=== PATIENT | male | born 1945 ===

== ENCOUNTER 2019-07-21 12:38 | Outpatient (CLI) | payer MEDICARE ==
[~2019-07-21] VITALS: Ht 167.7 cm; Wt 80.3 kg
[2019-07-21 13:53] VITALS: BP 130/74
[2019-07-22] MEDS ORDERED: NIAC500T24 PO (15:06)
[2019-07-22] MEDS ORDERED: METO50TA15 PO (15:06)
[2019-07-22] MEDS ORDERED: METF-399 PO (15:06)
[2019-07-22] MEDS ORDERED: MULT-1056 PO (15:06)
[2019-07-22] MEDS ORDERED: GABA-488 PO (15:06)
[2019-07-22] MEDS ORDERED: BUDE10.2 IH (15:06)
[2019-07-22] MEDS ORDERED: GLIM4TAB PO (15:06)
[2019-07-22] MEDS ORDERED: ALBU18HF2 INH (15:06)
[2019-07-22] MEDS ORDERED: PRAV20TA3 PO (15:06)
== END 2019-07-21 13:40 | disposition home or self-care (01) ==
LOC: PREOP 12:38
PROVIDERS: ATTEND Otolaryngology Otolaryngology/Facial Plastic Surgery
DX: Z01.818 Encounter for other preprocedural examination (principal)
CPT/HCPCS: 87081

== ENCOUNTER 2019-07-31 07:59 | Day surgery (SDC) | payer MEDICARE ==
[~2019-07-31] VITALS: Ht 167.6 cm; Wt 80.3 kg
[2019-07-31] VITALS (12 sets, daily range): BP systolic 62–138; BP diastolic 54–70
[~2019-07-31 07:59] MED LIST: ALBU18HF2 INH; BUDE10.2 IH; GABA-488 PO; GLIM4TAB PO; METF-399 PO; METO50TA15 PO; MULT-1056 PO; NIAC500T24 PO; PRAV20TA3 PO
[2019-07-31] MEDS ORDERED: RT-ALBUTEROL SULF 2.5 MG/3 ML PRE-MIX VIAL ONE (08:46)
[2019-07-31] MEDS ORDERED: MIDAZOLAM 2 MG/2 ML (VERSED) VIAL IV ONE (09:30)
--- NOTE | 2019-07-31 10:39 | Progress Note-Pre Operative ---
Pre-Operative Progress Note H&P Reviewed The H&P was reviewed, patient examined and no changes noted. Date Seen by Provider: Jul 31, 2019 Time Seen by Provider: 10: Date H&P Reviewed: Jul 31, 2019 Time H&P Reviewed: : Pre-Operative Diagnosis: Nasopharyngeal Mass, Chronic VASILIY DEBORAH JAFFE MD Jul 31, 2019 10:39
[2019-07-31] MEDS ORDERED: MIDAZOLAM 2 MG/2 ML (VERSED) VIAL ONE (10:42)
[2019-07-31] MEDS ORDERED: ONDANSETRON 4 MG/2 ML (SDV) Z0FRAN ONE (10:42)
[2019-07-31] MEDS ORDERED: LIDOCAINE PF 2% 5 ML (XYLOCAINE) VIAL ONE (10:42)
[2019-07-31] MEDS ORDERED: fentaNYL INJECTION 100 MCG/2 ML AMP ONE (10:42)
[2019-07-31] MEDS ORDERED: proPOfol 200 MG/20 ML (DIPRIVAN) VIAL IV ONE (10:42)
[2019-07-31] MEDS ORDERED: SEVOFLURANE (ULTANE) 15 ML INHAL SOLN ONE ×2 (10:45→11:25)
[2019-07-31] MEDS ORDERED: ROCURONIUM 10 MG/ML 5 ML SYRINGE IV ONE (10:45)
[2019-07-31] MEDS ORDERED: LACTATED RINGERS 1,000 ML IV PRN (10:54)
[2019-07-31] MEDS ORDERED: ASPI-586 PO (11:07)
[2019-07-31] MEDS ORDERED: GLYCOPYRROLATE 0.2 MG/ML (ROBINUL) 2 ML VIAL ONE (11:17)
[2019-07-31] MEDS ORDERED: NEOSTIGMINE 3 MG/3 ML VIAL ONE (11:17)
[2019-07-31] MEDS ORDERED: PHENYLEPHRINE 100 MCG/ML 10 ML (ANESTHESIA) SYR ONE (11:19)
--- NOTE | 2019-07-31 11:22 | Progress Note-Post Operative ---
Post-Operative Progess Note Surgeon (s)/Stamps Or Coins Salesperson (s) Surgeon DEBORAH JAFFE MD Stamps Or Coins Salesperson n/a Pre-Operative Diagnosis Nasopharyngeal Mass, Chronic VASILIY Post-Operative Diagnosis same Post-Op Procedure Note Date of Procedure: Jul 31, 2019 Name of Procedure Performed: Removal of Nasopharyngeal Mass, BMT Description & Findings Description and Findings: n/a Anesthesia Type gen Estimated Blood Loss minimal Packing none. Specimen(s) collected/removed nasopharyngeal mass fresh to path to be treted like a lymphoma DEBORAH JAFFE MD Jul 31, 2019 11:22
[2019-07-31] MEDS ORDERED: ACETAMINOPHEN 325 MG TABLET PO PRN (11:30)
[2019-07-31] MEDS ORDERED: HYDROcodone/APAP 5 MG/325 MG (LORTAB) TAB PO PRN (11:30)
[2019-07-31] MEDS ORDERED: MEPERIDINE (DEMEROL) INJ 50 MG/ML IVP ONE (11:45)
[2019-07-31] MEDS ORDERED: ONDANSETRON 4 MG/2 ML (SDV) Z0FRAN IVP PRN (11:45)
[2019-07-31] MEDS ORDERED: morphine INJ 10 MG/ML 1ML (SYR OR VIAL) IVP ONE (11:45)
--- NOTE | 2019-07-31 13:21 | Anesthesia-General Post-Op ---
General Patient Condition Mental Status/LOC: Same as Preop Cardiovascular: Satisfactory Nausea/Vomiting: Absent Respiratory: Satisfactory Pain: Controlled Complications: Absent Post Op Complications Complications None Follow Up Care/Instructions Patient Instructions None needed. Anesthesia/Patient Condition Patient Condition Patient is doing well, no complaints, stable vital signs, no apparent adverse anesthesia problems. No complications reported per nursing. MARCIANO SHEPHERD CRNA Jul 31, 2019 13:21
[2019-07-31] MEDS ORDERED: HYDR-3812 PO (13:40)
[2019-07-31] MEDS ORDERED: GARAMYCIN EACH EAR (13:40)
[2019-07-31] MEDS ORDERED: DEXAMETHASONE 10 MG/ML (DECADRON) 1 ML VIAL ONE (14:29)
== END 2019-07-31 14:30 | disposition home or self-care (01) ==
LOC: SDC 07:59
PROVIDERS: ATTEND Otolaryngology Otolaryngology/Facial Plastic Surgery
DX: H65.23 Chronic serous otitis media, bilateral (principal); C83.11 Mantle cell lymphoma, lymph nodes of head, face, and neck; I10 Essential (primary) hypertension; E11.9 Type 2 diabetes mellitus without complications; E78.5 Hyperlipidemia, unspecified; J18.9 Pneumonia, unspecified organism; Z79.899 Other long term (current) drug therapy; Z87.891 Personal history of nicotine dependence; Z88.0 Allergy status to penicillin; Z90.49 Acquired absence of other specified parts of digestive tract; Z79.84 Long term (current) use of oral hypoglycemic drugs; Z79.82 Long term (current) use of aspirin; Z83.3 Family history of diabetes mellitus
CPT/HCPCS: 82962; 88184; 88185; 88305; 88341; 88342; 88360; 94640

== ENCOUNTER → 2019-08-12 | Outpatient (CLI) | payer MEDICARE ==
[~2019-08-12] MED LIST changes: +ASPI-586 PO; +GARAMYCIN EACH EAR; +HYDR-3812 PO
--- NOTE | 2019-08-12 13:10 | Diagnostic Imaging Report ---
INDICATION: Mantle cell lymphoma. This study is performed for initial staging. TECHNIQUE: Serum blood glucose level at the time of injection is 127 mg/dL. Patient was administered 16.0 mCi of F-18 FDG intravenously in the left hand and PET imaging was performed from the top of the skull to the mid thighs. Noncontrast CT was also performed for attenuation correction and anatomic correlation. COMPARISON: No prior PET or CT study is available for comparison. FINDINGS: There is symmetric activity throughout the brain. There is some low-level activity noted within multiple cervical lymph nodes. The largest yaw mass is in the left lower cervical spine/supraclavicular region with SUV max of approximately 3.2. There is bulky mediastinal lymphadenopathy which encases the right upper, right middle, and right lower lobe bronchi. Adenopathy demonstrates some low-level activity with SUV max of approximately 3. Patient does have a moderate right-sided pleural effusion with areas of atelectasis or infiltrate in the right middle lobe and right lower lobe. Abdominal evaluation demonstrates bulky lymphadenopathy in the retroperitoneum centrally as well as in the mesentery. The adenopathy does also demonstrate some low-level activity with SUV max of approximately 3.1. There is a small amount of free fluid in the pelvis. Very low-level activity within bilateral inguinal lymph nodes is noted. Liver appears to be enlarged. Kidneys contain bilateral low densities suggestive of cysts. There is a probable calculus in the lower pole of the left kidney measuring 10 mm. Aorta is nonaneurysmal but heavily calcified. IMPRESSION: 1. There is some bulky lymphadenopathy identified in the lower cervical spine/supraclavicular region, mediastinum, and right hilum as well as central mesentery and central retroperitoneum. These areas of lymphadenopathy demonstrate low-level FDG avidity. Moderate right pleural effusion with some associated infiltrate or atelectasis in the right middle lobe and right lower lobe is noted. 2. Minimal ascites. 3. Nonobstructing left renal calculus. Dictated by: Dictated on workstation # [id number]
== END ==
LOC: CARD 08:36
PROVIDERS: ATTEND Internal Medicine Hematology & Oncology
DX: Z51.81 Encounter for therapeutic drug level monitoring (principal); C83.10 Mantle cell lymphoma, unspecified site; J90 Pleural effusion, not elsewhere classified; N20.0 Calculus of kidney; R59.0 Localized enlarged lymph nodes
CPT/HCPCS: 93306

== ENCOUNTER 2019-08-20 05:30 | Outpatient (CLI) | payer MEDICARE ==
[~2019-08-20] VITALS: Ht 165 cm; Wt 80.3 kg
[2019-08-21] MEDS ORDERED: ASPI-999 PO (10:00)
[2019-08-21] MEDS ORDERED: LOSA25TA41 PO (10:01)
[2019-08-21] MEDS ORDERED: SUCR1TAB36 PO (10:01)
[2019-08-21] MEDS ORDERED: ALLO300T2 PO (10:01)
[2019-08-21] MEDS ORDERED: PANT40TA2 PO (10:01)
== END 2019-08-20 10:05 | disposition home or self-care (01) ==
LOC: PREOP 05:30
PROVIDERS: ATTEND Surgery
DX: Z01.818 Encounter for other preprocedural examination (principal)

== ENCOUNTER 2019-08-21 09:05 | Day surgery (SDC) | payer MEDICARE ==
[2019-08-21] VITALS (7 sets, daily range): BP systolic 102–117; BP diastolic 59–66
[~2019-08-21] VITALS: Ht 165 cm; Wt 80.3 kg
[~2019-08-21 09:05] MED LIST changes: -GLIM4TAB PO; +GLIM4TAB3 PO
[2019-08-21] MEDS ORDERED: LACTATED RINGERS 1,000 ML IV PRN (09:29)
[2019-08-21] MEDS ORDERED: CLINDAMYCIN 600 MG/50 ML IVPB 50 ML IV ONE (09:30)
[2019-08-21] MEDS ORDERED: 0.9% SODIUM CHLORIDE PF INJ 20 ML VIAL ONE ×2 (09:37→10:22)
[2019-08-21] MEDS ORDERED: BUP/EPI 0.5% 1:200,000 (SENSORCAINE) 30 ML VIAL ONE (09:37)
--- NOTE | 2019-08-21 09:44 | Progress Note-Pre Operative ---
Pre-Operative Progress Note H&P Reviewed The H&P was reviewed, patient examined and no changes noted. Time Seen by Provider: 09:39 Date H&P Reviewed: Aug 21, 2019 Time H&P Reviewed: 09:42 Pre-Operative Diagnosis: Venous insufficiency, Mantle Cell Lymphoma OSEI BARBOSA DO Aug 21, 2019 09:44
[2019-08-21] MEDS ORDERED: KETAMINE/NaCl 50 MG/5 ML SYRINGE (ED ONLY) ONE (09:45)
[2019-08-21] MEDS ORDERED: MIDAZOLAM 2 MG/2 ML (VERSED) VIAL ONE (09:45)
[2019-08-21] MEDS ORDERED: PROPOFOL INJECTION 50 ML IV ONE (09:45)
[2019-08-21] MEDS ORDERED: ASPI-999 PO (10:00)
[2019-08-21] MEDS ORDERED: SUCR1TAB36 PO (10:01)
[2019-08-21] MEDS ORDERED: PANT40TA2 PO (10:01)
[2019-08-21] MEDS ORDERED: ALLO300T2 PO (10:01)
[2019-08-21] MEDS ORDERED: LOSA25TA41 PO (10:01)
[2019-08-21] MEDS ORDERED: HEParin (CENTRAL IV FLUSH) 500 UNIT/5 ML SYR ONE (10:22)
--- NOTE | 2019-08-21 10:35 | Progress Note-Post Operative ---
Post-Operative Progess Note Surgeon (s)/Fx Artist (s) Surgeon OSEI BARBOSA DO Fx Artist: MOLLY Gunn Pre-Operative Diagnosis Venous insufficiency, Mantle Cell Lymphoma Post-Operative Diagnosis same Procedure & Operative Findings Date of Procedure 08/21/19 Procedure Performed/Findings lizandro-cath insertion, Left chest wall, Left Subclavian vein Anesthesia Type IV sedation by PRESCHOOL PRINCIPAL Estimated Blood Loss Estimated blood loss (mL): scant Specimens/Packing Specimens Removed none OSEI BARBOSA DO Aug 21, 2019 10:35
--- NOTE | 2019-08-21 10:37 | Discharge Inst-Surgical ---
Discharge Inst-Surgical Depart Medication/Instructions New, Converted or Re-Newed RX: Other (no rx needed) Patient Instructions Follow up Appt: Make appointment for 1 week. [phone] Instructions: No strenuous activity. May shower in 24 hours, no tub bath or soaking. Use incentive spirometer at home as directed. No Smoking Skin/Wound Care: May remove bandages in am. You need to leave the Dermabond on incision it will fall off on it's own. Symptoms to Report: Appetite Changes, Extremity Discoloration, Numbness/Tingling, Swelling Increased, Bleeding Excessive, Eyesight Changes, Pain Increased, Urine Color Change, Constipation(Persistent), Fever over 101 degree F, Pain/Pressure in chest, Urinating Difficulty, Cough Up/Vomit Blood, Heart Beat Irreg/Pounding, Pain/Pressure in jaw, Cramps in feet or legs, Lightheadedness, Pain/Pressure in shoulder, Diarrhea(Persistent), Memory Changes Suddenly, Questions/Concerns, Weight gain consecutive days, Dizziness/Fainting, Nausea/Vomiting, Shortness of Breath, Weight gain over 2 pounds If questions or concerns contact your physician Or seek help at emergency department. Activity Driving Instructions: No Driving/Refer to Dr. Ch Discharge Diet: No Restrictions Diet After 24 Hours: Clear Liquid if Nauseous If Any Problems/Questions/Issu: Contact Your Physician, Go to Emergency Room Skin/Wound Care Infection Signs and Symptoms: Increased Redness, Foul Odor of Wound, Increased Drainage, Skin Itchy or Has a Rash, Increased Swelling, Temperature Above 101 F Bathing Instructions: Shower Stitches/Papa/Dermabond Dis: OSEI Christie DO Aug 21, 2019 10:37
[2019-08-21] MEDS ORDERED: morphine INJ 10 MG/ML 1ML (SYR OR VIAL) IVP ONE (10:45)
[2019-08-21] MEDS ORDERED: MEPERIDINE (DEMEROL) INJ 50 MG/ML IVP ONE (10:45)
[2019-08-21] MEDS ORDERED: ACETAMINOPHEN 500 MG TAB (TYLENOL) ONE (11:38)
[2019-08-21] MEDS ORDERED: ACETAMINOPHEN 500 MG TAB (TYLENOL) PO ONE (11:45)
--- NOTE | 2019-08-21 12:04 | Anesthesia-General Post-Op ---
MAC Patient Condition Mental Status/LOC: Same as Preop Cardiovascular: Satisfactory Nausea/Vomiting: Absent Respiratory: Satisfactory Pain: Controlled Complications: Absent Post Op Complications Complications None Follow Up Care/Instructions Patient Instructions None needed. Anesthesiology Discharge Order Discharge Order Patient is doing well, no complaints, stable vital signs, no apparent adverse anesthesia problems. No complications reported per nursing. MARCIANO SHEPHERD CRNA Aug 21, 2019 12:04
--- NOTE | 2019-08-21 12:05 | NUR ---
PATIENT O2 SAT RANGING FROM 88-90% ON ROOM AIR POST OP. PREOP O2 SAT WAS 88-90% RA. FAMILY STATES THEY HAVE O2 AND BREATHING TREATMENTS AT HOME FOR PATIENT, ALBUTEROL INHALER WITH PATIENT NOW. PATIENT STATES HE WANTS TO GO HOME AND WILL TAKE A BREATHING TREATMENT ONCE HE GETS HOME. FAMILY IS OKAY WITH PATIENT DISCHARGING. FAMILY ALSO STATES THEY HAVE PULSE OX AT HOME TO MONITOR PATIENT. THIS RN INSTRUCTED PATIENT ON BREATHING EXERCISES, FAMILY STATES THEY HAVE AN INCENTIVE SPIROMETER AT HOME AND WOULD NOT LIKE A NEW ONE. THIS RN CALLED DR. BARBOSA TO UPDATE HIM ON PATIENT STATUS AND REQUEST TO GO HOME, DR. BARBOSA STATED IT WAS OKAY TO DISCHARGE PATIENT.
--- NOTE | 2019-08-21 13:41 | OPERATIVE REPORT ---
DATE OF SERVICE: 08/21/2019 PREOPERATIVE DIAGNOSES: 1. Mantle cell lymphoma. 2. Venous insufficiency. POSTOPERATIVE DIAGNOSES: 1. Mantle cell lymphoma. 2. Venous insufficiency. PROCEDURE: Port-A-Cath insertion left anterior chest wall, left subclavian vein. SURGEON: Adriel Cornelius DO TELECOM COORDINATOR: Wen Medina MS3 SPECIMENS: None. BLOOD LOSS: Scant. FLUIDS: Per anesthesia. POSTOPERATIVE CONDITION: Stable. INDICATION FOR PROCEDURE: The patient is a 73-year-old male, who unfortunately was recently diagnosed with mantle cell lymphoma, has some venous insufficiency, needs a Port-A-Cath placed. FINDINGS: The patient had a Port-A-Cath placed in left anterior chest wall and left subclavian vein. PROCEDURE NOTE: After informed consent was obtained, the patient was brought to the operating room, placed on the operating table in the supine position. He was sterilely prepped and draped in normal fashion. Local lidocaine was used to infiltrate the skin towards the left clavicle as well as in the left anterior chest wall. The patient was then placed slightly Trendelenburg. An 18-gauge fine needle advanced under negative inspiration, cannulated the subclavian vein on a first attempt. Good flash of blood, removed the syringe, placed a guidewire. Using Seldinger technique, it went in easily and then removed the needle. I used a fluoroscopy and saw that the guidewire was in good position in the superior vena cava. At this point, then made a stab incision along the guidewire with #11 blade and then made an incision in the left anterior chest wall with #11 blade, carried down through the skin into subcutaneous tissue, then deepened down through subcutaneous tissue with Bovie electrocautery down to the pectoralis major fascia and then created a pocket bluntly with my finger. Then over the guidewire, placed a dilator using Seldinger technique. It went in easily and then checked with fluoroscopy, it was in good position. I tunneled catheter from the stab incision into the pocket using tunneling device and removed the inner portion of the dilator sheath and the guidewire. I then placed the catheter down the dilator sheath using Seldinger technique, it went in easily, checked with fluoroscopy, it was in good position. At this point, then removed the dilator sheath and then attached the port to the catheter and then placed a locking mechanism on. Placed this into the pocket and then accessed it with a Hughes needle, good flash of blood and then flushed easily with saline and then aspirated and flushed with 2 mL of heparin, sutured in place with 3-0 Prolene suture and then closed the subcutaneous tissue with 3-0 Vicryl interrupted suture, then closed the skin with 4-0 undyed Monocryl 3 interrupted subcuticular stitches. Area was cleaned and dried. Dermabond was placed as well as a Tegaderm. The patient tolerated the procedure. Sponge, instrument and needle count were correct at the end of the case. Job ID: [id number] DocumentID: [id number] Dictated Date: 08/21/2019 10:33:51 Verification Lead Date: 08/21/2019 13:40:41 Dictated By: ADRIEL CORNELIUS DO
--- NOTE | 2019-08-21 17:31 | Diagnostic Imaging Report ---
INDICATION: Port-A-Cath placement. EXAMINATION: Intraoperative fluoroscopy was used during Port-A-Cath placement in surgery. FINDINGS: Port-A-Cath seen over the left chest with catheter in the left subclavian vein and catheter tip overlying the SVC. 3 seconds of fluoroscopy time was utilized in surgery. IMPRESSION: Intraoperative fluoroscopy used during Port-A-Cath placement. Dictated by: Dictated on workstation # [id number]
--- OUTSIDE RECORDS SUMMARY | 2019-09-13 12:40 | XMS REPORT | Continuity of Care Document ---
Author Organization Unknown POS Address Unknown SP Phone Unavailable SP Allergies Active Description Code Type Severity POS Reaction Onset Reported/Identified POS to Patient Clinical Status POS Yes Penicillins [id number] Drug Aller gy SP Anaphylaxis 07/21/2019 SP Yes Penicillins [id number] Drug Aller gy SP Anaphylaxis 08/20/2019 SP Medications There is no data. Problems Date Dx Coded Attending Type Code POS Diagnosed By POS 07/21/2019 DEBORAH JAFFE MD Ot Z01.818 SP ENCOUNTER FOR OTHER PREPROCEDURAL EXAMIN SP 07/23/2019 DEBORAH JAFFE MD, Ot Z01.818 SP ENCOUNTER FOR OTHER PREPROCEDURAL EXAMIN SP 07/31/2019 DEBORAH JAFFE MD Ot C83.11 SP MANTLE CELL LYMPHOMA, LYMPH NODES OF HEA SP 07/31/2019 DEBORAH JAFFE MD Ot E11 .9 SP 2 DIABETES MELLITUS WITHOUT COMPLIC SP 07/31/2019 DEBORAH JAFFE MD Ot E78 .5 SP UNSPECIFIED SP 07/31/2019 DEBORAH JAFFE MD Ot H65.23 SP CHRONIC SEROUS OTITIS MEDIA, BILATERAL SP 07/31/2019 DEBORAH JAFFE MD Ot I10 SP (PRIMARY) HYPERTENSION SP 07/31/2019 DEBORAH JAFFE MD Ot J18 .9 SP UNSPECIFIED ORGANISM SP 07/31/2019 DEBORAH JAFFE MD Ot Z79.82 SP CARE HOME (CURRENT) USE OF ASPIRIN SP 07/31/2019 EDBORAH JAFFE MD Ot Z79.84 SP CARE HOME (CURRENT) USE OF ORAL HYPOGLYC SP 07/31/2019 DEBORAH JAFFE MD Ot Z79.899 SP OTHER WINDOWS SERVER ARCHITECT (CURRENT) DRUG THERAPY SP 07/31/2019 DEBORAH JAFFE MD Ot Z83 .3 SP HISTORY OF DIABETES MELLITUS SP 07/31/2019 DEBORAH JAFFE MD Ot Z87.891 SP PERSONAL HISTORY OF NICOTINE DEPENDENCE SP 07/31/2019 DEBORAH JAFFE MD Ot Z88 .0 SP STATUS TO PENICILLIN SP 07/31/2019 DEBORAH JAFFE MD Ot Z90.49 SP ACQUIRED ABSENCE OF OTHER SPECIFIED PART SP 08/11/2019 DEBORAH JAFFE MD Ot C83.11 SP MANTLE CELL LYMPHOMA, LYMPH NODES OF HEA SP 08/11/2019 DEBORAH JAFFE MD Ot E11 .9 SP 2 DIABETES MELLITUS WITHOUT COMPLIC SP 08/11/2019 DEBORAH JAFFE MD Ot E78 .5 SP UNSPECIFIED SP 08/11/2019 DEBORAH JAFFE MD Ot H65.23 SP CHRONIC SEROUS OTITIS MEDIA, BILATERAL SP 08/11/2019 DEBORAH JAFFE MD Ot I10 SP (PRIMARY) HYPERTENSION SP 08/11/2019 DEBORAH JAFFE MD Ot J18 .9 SP UNSPECIFIED ORGANISM SP 08/11/2019 DEBORAH JAFFE MD Ot Z79.82 SP WINDOWS SERVER ARCHITECT (CURRENT) USE OF ASPIRIN SP 08/11/2019 DEBORAH JAFFE MD Ot Z79.84 SP WINDOWS SERVER ARCHITECT (CURRENT) USE OF ORAL HYPOGLYC SP 08/11/2019 DEBORAH JAFFE MD Ot Z79.899 SP OTHER WINDOWS SERVER ARCHITECT (CURRENT) DRUG THERAPY SP 08/11/2019 DEBORAH JAFFE MD Ot Z83 .3 SP HISTORY OF DIABETES MELLITUS SP 08/11/2019 DEBORAH JAFFE MD Ot Z87.891 SP PERSONAL HISTORY OF NICOTINE DEPENDENCE SP 08/11/2019 DEBORAH JAFFE MD Ot Z88 .0 SP STATUS TO PENICILLIN SP 08/11/2019 DEBORAH JAFFE MD Ot Z90.49 SP ACQUIRED ABSENCE OF OTHER SPECIFIED PART SP 08/11/2019 HALLIE TODD Ot C83.11 SP CELL LYMPHOMA, LYMPH NODES OF HEA SP 08/15/2019 HALLIE TODD Ot C83.10 SP CELL LYMPHOMA, UNSPECIFIED SITE SP 08/15/2019 HALLIE TODD Ot J90 SP EFFUSION, NOT ELSEWHERE CLASSIFI SP 08/15/2019 HALLIE TODD Ot N20.0 SP OF KIDNEY SP 08/15/2019 HALLIE TODD Ot R59.0 SP ENLARGED LYMPH NODES SP 08/15/2019 HALLIE TODD Ot Z51.81 SP FOR THERAPEUTIC DRUG LEVEL MON SP 08/19/2019 HALLIE TODD Ot C83.11 SP CELL LYMPHOMA, LYMPH NODES OF HEA SP 08/19/2019 HALLIE TODD Ot C83.10 SP CELL LYMPHOMA, UNSPECIFIED SITE SP 08/19/2019 PEYTON, BOBAN N Ot J90 SP EFFUSION, NOT ELSEWHERE CLASSIFI SP 08/19/2019 PEYTON HALLIE N Ot N20.0 SP OF KIDNEY SP 08/19/2019 PEYTON, BOBLOUIE N Ot R59.0 SP ENLARGED LYMPH NODES SP 08/19/2019 PEYTON BOBLOUIE N Ot Z51.81 SP FOR THERAPEUTIC DRUG LEVEL MON SP 08/20/2019 CHRISTIANO BARBOSA DOIC B Ot Z01.8 18 SP FOR OTHER PREPROCEDURAL EXAMIN SP 08/21/2019 PEYTONHALLIE N Ot C83.11 SP CELL LYMPHOMA, LYMPH NODES OF HEA SP 08/21/2019 PEYTONHALLIE N Ot C83.10 SP CELL LYMPHOMA, UNSPECIFIED SITE SP 08/21/2019 PEYTONHALLIE MITCHELL N Ot J90 SP EFFUSION, NOT ELSEWHERE CLASSIFI SP 08/21/2019 PEYTON HALLIE N Ot N20.0 SP OF KIDNEY SP 08/21/2019 PEYTONHALLIE N Ot R59.0 SP ENLARGED LYMPH NODES SP 08/21/2019 HALLIE TODD N Ot Z51.81 SP FOR THERAPEUTIC DRUG LEVEL MON SP 08/21/2019 PEYTON RONNIELOUIE N Ot C83.11 SP CELL LYMPHOMA, LYMPH NODES OF HEA SP 08/21/2019 OSEI BARBOSA DO Ot E11.4 0 SP 2 DIABETES MELLITUS WITH DIABETIC N SP 08/21/2019 CHRISTIANO BARBOSA DOIC B Ot E78.5 SP UNSPECIFIED SP 08/21/2019 CHRISTIANO BARBOSA DOIC B Ot F41.8 SP SPECIFIED ANXIETY DISORDERS SP 08/21/2019 OSEI BARBOSA DO B Ot I10 SP (PRIMARY) HYPERTENSION SP 08/21/2019 CHRISTIANO BARBOSA DOIC B Ot I87.2 SP INSUFFICIENCY (CHRONIC) (PERIPHER SP 08/21/2019 CHRISTIANO BARBOSA DOIC B Ot J44.9 SP OBSTRUCTIVE PULMONARY DISEASE, U SP 08/21/2019 OSEI BARBOSA DO B Ot Z79.8 2 SP TERM (CURRENT) USE OF ASPIRIN SP 08/21/2019 CHRISTIANO BARBOSA DOIC B Ot Z79.8 4 SP TERM (CURRENT) USE OF ORAL HYPOGLYC SP 08/21/2019 OSEI BARBOSA DO B Ot Z79.8 99 SP WINDOWS SERVER ARCHITECT (CURRENT) DRUG THERAPY SP 08/21/2019 CHRISTIANO BARBOSA DOIC B Ot Z80.3 SP HISTORY OF MALIGNANT NEOPLASM OF SP 08/21/2019 ANA MARÍAMINDA CHRISTIANO ALMANZARIC B Ot Z82.4 9 SP HX OF ISCHEM HEART DIS AND OTH DI SP 08/21/2019 ANA MARÍAMINDA OSEI ALMANZAR B Ot Z83.3 SP HISTORY OF DIABETES MELLITUS SP 08/21/2019 CHELSEY OSEI ALMANZAR B Ot Z88.0 SP STATUS TO PENICILLIN SP 08/21/2019 ANA MARÍAMINDA CHRISTIANO ALMANZARIC B Ot Z90.4 9 SP ABSENCE OF OTHER SPECIFIED PART SP 08/26/2019 ANA MARÍAMINDA CHRISTIANO ALMANZARIC B Ot E11.4 0 SP 2 DIABETES MELLITUS WITH DIABETIC N SP 08/26/2019 CHRISTIANO BARBOSA DOIC B Ot E78.5 SP UNSPECIFIED SP 08/26/2019 ANA MARÍAMINDA OSEI ALMANZAR B Ot F41.8 SP SPECIFIED ANXIETY DISORDERS SP 08/26/2019 ANA MARÍAMINDA CHRISTIANO ALMANZARIC B Ot I10 SP (PRIMARY) HYPERTENSION SP 08/26/2019 ANA MARÍAMINDA OSEI ALMANZAR B Ot I87.2 SP INSUFFICIENCY (CHRONIC) (PERIPHER SP 08/26/2019 ANA MARÍAMINDA OSEI ALMANZAR B Ot J44.9 SP OBSTRUCTIVE PULMONARY DISEASE, U SP 08/26/2019 ANA MARÍAMINDA OSEI ALMANZAR B Ot Z79.8 2 SP TERM (CURRENT) USE OF ASPIRIN SP 08/26/2019 OSEI BARBOSA DO B Ot Z79.8 4 SP TERM (CURRENT) USE OF ORAL HYPOGLYC SP 08/26/2019 ANA MARÍAMINDA OSEI ALMANZAR B Ot Z79.8 99 SP WINDOWS SERVER ARCHITECT (CURRENT) DRUG THERAPY SP 08/26/2019 ANA MARÍAMINDA OSEI ALMANZAR B Ot Z80.3 SP HISTORY OF MALIGNANT NEOPLASM OF SP 08/26/2019 ANA MARÍAMINDA CHRISTIANO ALMANZARIC B Ot Z82.4 9 SP HX OF ISCHEM HEART DIS AND OTH DI SP 08/26/2019 ANA MARÍAMINDA OSEI ALMANZAR B Ot Z83.3 SP HISTORY OF DIABETES MELLITUS SP 08/26/2019 OSEI BARBOSA DO B Ot Z88.0 SP STATUS TO PENICILLIN SP 08/26/2019 CHRISTIANO BARBOSA DOIC B Ot Z90.4 9 SP ABSENCE OF OTHER SPECIFIED PART SP 08/28/2019 OSEI BARBOSA DO B Ot E11.4 0 SP 2 DIABETES MELLITUS WITH DIABETIC N SP 08/28/2019 OSEI BARBOSA DO B Ot E78.5 SP UNSPECIFIED SP 08/28/2019 CHELSEY ALMANZAR OSEI B Ot F41.8 SP SPECIFIED ANXIETY DISORDERS SP 08/28/2019 CHELSEY ALMANZAR OSEI B Ot I10 SP (PRIMARY) HYPERTENSION SP 08/28/2019 CHELSEY ALMANZAR OSEI B Ot I87.2 SP INSUFFICIENCY (CHRONIC) (PERIPHER SP 08/28/2019 CHELSEY ALMANZAR OSEI B Ot J44.9 SP OBSTRUCTIVE PULMONARY DISEASE, U SP 08/28/2019 CHELSEY ALMANZARCHRISTIANOIC B Ot Z79.8 2 SP TERM (CURRENT) USE OF ASPIRIN SP 08/28/2019 CHELSEY ALMANZAR OSEI B Ot Z79.8 4 SP TERM (CURRENT) USE OF ORAL HYPOGLYC SP 08/28/2019 CHELSEY ALMANZAR OSEI B Ot Z79.8 99 SP WINDOWS SERVER ARCHITECT (CURRENT) DRUG THERAPY SP 08/28/2019 CHELSEY ALMANZAR OSEI B Ot Z80.3 SP HISTORY OF MALIGNANT NEOPLASM OF SP 08/28/2019 CHELSEY ALMANZAR OSEI B Ot Z82.4 9 SP HX OF ISCHEM HEART DIS AND OTH DI SP 08/28/2019 CHELSEY ALMANZAR OSEI B Ot Z83.3 SP HISTORY OF DIABETES MELLITUS SP 08/28/2019 CHELSEY ALMANZAR OSEI B Ot Z88.0 SP STATUS TO PENICILLIN SP 08/28/2019 CHELSEY ALMANZAR OSEI B Ot Z90.4 9 SP ABSENCE OF OTHER SPECIFIED PART SP 08/29/2019 HALLIE TODD Jose Armando Ot C83.11 SP CELL LYMPHOMA, LYMPH NODES OF HEA SP Procedures There is no data. Results Test Result Range POS HP4+HBsAb - 07/20/19 07:25 POS Hep B Surface Ab, Qual Non Reactive SP HBsAg Screen Negative Negative SP Hep A Ab, IgM Negative Negative SP Hep B Core Ab, IgM Negative Negative SP HCV Ab <0.1 s/co ratio 0.0-0.9 SP Comment: - 07/20/19 07:25 POS Comment: Comment SP Methicillin resistant Staphylococcus aur eus (MRSA) screening culture - 07/21/19 POS Methicillin resistant Staphylococcus aureus (MRSA) scr eening culture POS NRG SP Capillary blood glucose measurement by g lucometer (mass/volume) - 07/31/19 08:57 POS Capillary blood glucose measurement by glucometer (mas s/volume) 90 POS 70-110 SP Capillary blood glucose measurement by g lucometer (mass/volume) - 07/31/19 11:42 POS Capillary blood glucose measurement by glucometer (mas s/volume) 105 POS 70-110 SP Capillary blood glucose measurement by g lucometer (mass/volume) - 08/21/19 09:28 POS Capillary blood glucose measurement by glucometer (mas s/volume) 76 POS 70-110 SP Methicillin resistant Staphylococcus aur eus (MRSA) screening culture - 08/21/19 POS Methicillin resistant Staphylococcus aureus (MRSA) scr eening culture POS NRG SP Capillary blood glucose measurement by g lucometer (mass/volume) - 08/21/19 10:53 POS Capillary blood glucose measurement by glucometer (mas s/volume) 73 POS 70-110 SP Encounters ACCT No. Visit Date/Time Discharge Status POS Pt. Type Provider Facility Loc./Un it POS Complaint POS [id number] 09/04/2019 12:13:08 09/04/2019 23:59: 59 CLS SP Outpatient LesleyJuan owen [place] SP [id number] 09/04/2019 10:31:41 09/04/2019 23:59: 59 CLS SP Outpatient Ora Sales SP SP [id number] 07/31/2019 16:28:34 07/31/2019 23:59: 59 CLS SP Outpatient Nay Ayala SP SP [id number] 07/03/2019 15:53:30 07/03/2019 23:59: 59 CLS SP Outpatient Juan Sutton [place] SP [id number] 06/19/2019 10:50:03 06/19/2019 23:59: 59 CLS SP Outpatient LesleyJuan owen [place] SP [id number] 05/20/2019 15:59:52 05/20/2019 23:59: 59 CLS SP Outpatient LesleyJuan owen [place] SP [id number] 05/05/2019 10:33:23 05/05/2019 23:59: 59 CLS SP Outpatient LesleyJuan owen [place] SP [id number] 11/26/2018 15:20:19 11/26/2018 23:59: 59 CLS SP Outpatient Juan Sutton [place] SP [id number] 07/30/2018 09:30:44 07/30/2018 23:59: 59 CLS SP Outpatient LesleyJuan [place] SP [id number] 11/22/2017 16:31:23 11/22/2017 23:59: 59 CLS SP Outpatient LesleyJuan SP SP [id number] 05/07/2017 10:33:26 05/07/2017 23:59: 59 CLS SP Outpatient LesleyJuan SP SP [id number] 10/24/2016 16:19:51 10/24/2016 23:59: 59 CLS SP Outpatient LesleyJuan SP SP [id number] 07/31/2016 11:35:24 07/31/2016 23:59: 59 CLS SP Outpatient LesleyJuan SP SP [id number] 11/01/2015 14:32:48 11/01/2015 23:59: 59 CLS SP Outpatient Shiela Garber SP SP [id number] 09/21/2015 11:32:21 09/21/2015 23:59: 59 CLS SP Outpatient LesleyJuan SP SP [id number] 02/03/2015 10:10:00 02/03/2015 23:59: 59 CLS SP Outpatient LesleyJuan SP SP [id number] 03/27/2014 09:30:20 03/27/2014 23:59: 59 CLS SP Outpatient LesleyJuan SP SP [id number] 03/23/2014 12:02:15 03/23/2014 23:59: 59 CLS SP Outpatient LesleyJuan SP SP [id number] 01/30/2014 08:57:41 01/30/2014 23:59: 59 CLS SP Outpatient LesleyJuan SP [id number] 07/22/2019 09:07:00 SP Registration SP [id number] 09/08/2019 13:37:00 23:59:59 SP CLS Outpatient HALLIE TODD [facility] ONC SP [id number] 08/21/2019 09:05:00 12:05:00 SP DIS Outpatient OSEI BARBOSA DO [facility] MANTLE CELL CANCER SP [id number] 08/20/2019 05:30:00 23:59:59 SP CLS Outpatient [place] OSEI ALMANZAR [facility] PREOP MANTLE CELL CANCER SP [id number] 08/12/2019 08:36:00 23:59:59 SP CLS Outpatient HALLIE TODD [facility] CARD LYMPHOMA, MANTLE CELL SP [id number] 07/31/2019 07:59:00 14:30:00 SP DIS Outpatient LD BYRNE[facility] NASOPHARYNGEAL M[facility], OTITIS MEDIA SP [id number] 07/21/2019 12:38:00 13:40:00 SP DIS Outpatient LD BYRNE, DEBORAH White [facility] PREOP NASOPHARYNGEAL MASS SP
[2019-09-24] MEDS ORDERED: MORP-68 PO (16:32)
== END 2019-08-21 12:05 | disposition home or self-care (01) ==
LOC: SDC 09:05
PROVIDERS: ATTEND Surgery
DX: I87.2 Venous insufficiency (chronic) (peripheral) (principal); I10 Essential (primary) hypertension; E78.5 Hyperlipidemia, unspecified; J44.9 Chronic obstructive pulmonary disease, unspecified; E11.40 Type 2 diabetes mellitus with diabetic neuropathy, unspecified; F41.8 Other specified anxiety disorders; Z88.0 Allergy status to penicillin; Z79.84 Long term (current) use of oral hypoglycemic drugs; Z79.899 Other long term (current) drug therapy; Z90.49 Acquired absence of other specified parts of digestive tract; Z79.82 Long term (current) use of aspirin; Z80.3 Family history of malignant neoplasm of breast; Z82.49 Family history of ischemic heart disease and other diseases of the circulatory system; Z83.3 Family history of diabetes mellitus
CPT/HCPCS: 82962; 87081

== ENCOUNTER 2019-09-24 09:14 | Outpatient (RCR) | payer MEDICARE ==
[2019-08-12 08:33] LABS: BASOPHILS # (AUTO) 0.1 10^3/uL (0.0-0.1); BASOPHILS % (AUTO) 1 % (0-10); EOSINOPHILS # (AUTO) 0.2 10^3/uL (0.0-0.3); EOSINOPHILS % (AUTO) 1 % (0-10); HEMATOCRIT 49 % (40-54); HEMOGLOBIN 16.7 G/DL (13.3-17.7); LYMPHOCYTES # (AUTO) 7.2 X 10^3 (1.0-4.0); LYMPHOCYTES % (AUTO) 47 % (12-44); MEAN CORPUSCULAR HEMOGLOBIN 33 PG (25-34); MEAN CORPUSCULAR HGB CONC 34 G/DL (32-36); MEAN CORPUSCULAR VOLUME 96 FL (80-99); MONOCYTES % (AUTO) 7 % (0-12); NEUTROPHILS # (AUTO) 6.7 X 10^3 (1.8-7.8); NEUTROPHILS % (AUTO) 44 % (42-75); PLATELET COUNT 129 10^3/uL (130-400); WHITE BLOOD COUNT 15.3 10^3/uL (4.3-11.0)
[2019-08-12 08:58] LABS: ALANINE AMINOTRANSFERASE 43 U/L (0-55); ALKALINE PHOSPHATASE 265 U/L (40-136); BILIRUBIN,TOTAL 0.8 MG/DL (0.1-1.0); BUN/CREATININE RATIO 16; CALCIUM 8.2 MG/DL (8.5-10.1); CARBON DIOXIDE 20 MMOL/L (21-32); CHLORIDE 108 MMOL/L (98-107); CREATININE SERUM 0.92 MG/DL (0.60-1.30); GFR ESTIMATED > 60; GLUCOSE 140 MG/DL (70-105); POTASSIUM 4.4 MMOL/L (3.6-5.0); SODIUM 139 MMOL/L (135-145); TOTAL PROTEIN 5.1 GM/DL (6.4-8.2)
[2019-08-12 22:46] LABS: HEPATITIS C ANTIBODY C Non-Reactive (Non-Reactive)
[2019-08-27 12:03] LABS: BASOPHILS # (AUTO) 0.6 10^3/uL (0.0-0.1); BASOPHILS % (AUTO) 1 % (0-10); EOSINOPHILS % (AUTO) 0 % (0-10); HEMATOCRIT 50 % (40-54); LYMPHOCYTES # (AUTO) 26.2 X 10^3 (1.0-4.0); LYMPHOCYTES % (AUTO) 66 % (12-44); MEAN CORPUSCULAR HEMOGLOBIN 34 PG (25-34); MEAN CORPUSCULAR HGB CONC 34 G/DL (32-36); MEAN CORPUSCULAR VOLUME 99 FL (80-99); MEAN PLATELET VOLUME 12.8 FL (7.4-10.4); MONOCYTES # (AUTO) 1.7 X 10^3 (0.0-1.0); MONOCYTES % (AUTO) 4 % (0-12); NEUTROPHILS # (AUTO) 11.2 X 10^3 (1.8-7.8); NEUTROPHILS % (AUTO) 28 % (42-75); PLATELET COUNT 93 10^3/uL (130-400); RED CELL DISTRIBUTION WIDTH 17.1 % (10.0-14.5)
[2019-08-27 12:04] LABS: WHITE BLOOD COUNT 39.7 10^3/uL (4.3-11.0)
[2019-08-27 12:35] LABS: ALANINE AMINOTRANSFERASE 27 U/L (0-55); ALBUMIN 2.9 GM/DL (3.2-4.5); ALKALINE PHOSPHATASE 368 U/L (40-136); BILIRUBIN,TOTAL 1.2 MG/DL (0.1-1.0); BUN/CREATININE RATIO 17; CALCIUM 7.6 MG/DL (8.5-10.1); CARBON DIOXIDE 25 MMOL/L (21-32); CHLORIDE 101 MMOL/L (98-107); CREATININE SERUM 1.03 MG/DL (0.60-1.30); GFR ESTIMATED > 60; GLUCOSE 194 MG/DL (70-105); POTASSIUM 4.9 MMOL/L (3.6-5.0); SODIUM 134 MMOL/L (135-145); TOTAL PROTEIN 5.1 GM/DL (6.4-8.2)
[2019-08-27 13:15] LABS: URIC ACID 6.8 MG/DL (2.6-7.2)
[2019-08-28 13:56] LABS: BUN/CREATININE RATIO 25; CALCIUM 7.6 MG/DL (8.5-10.1); CARBON DIOXIDE 23 MMOL/L (21-32); CHLORIDE 102 MMOL/L (98-107); CREATININE SERUM 1.14 MG/DL (0.60-1.30); GFR ESTIMATED > 60; GLUCOSE 142 MG/DL (70-105); MAGNESIUM 1.6 MG/DL (1.6-2.4); PHOSPHORUS 3.7 MG/DL (2.3-4.7); POTASSIUM 5.3 MMOL/L (3.6-5.0); SODIUM 136 MMOL/L (135-145); URIC ACID 8.1 MG/DL (2.6-7.2)
[2019-09-01 12:07] LABS: BASOPHILS # (AUTO) 0.1 10^3/uL (0.0-0.1); BASOPHILS % (AUTO) 1 % (0-10); EOSINOPHILS % (AUTO) 0 % (0-10); HEMATOCRIT 50 % (40-54); HEMOGLOBIN 16.7 G/DL (13.3-17.7); LYMPHOCYTES # (AUTO) 5.8 X 10^3 (1.0-4.0); LYMPHOCYTES % (AUTO) 53 % (12-44); MEAN CORPUSCULAR HEMOGLOBIN 33 PG (25-34); MEAN CORPUSCULAR HGB CONC 33 G/DL (32-36); MEAN CORPUSCULAR VOLUME 98 FL (80-99); MEAN PLATELET VOLUME 12.5 FL (7.4-10.4); MONOCYTES # (AUTO) 0.9 X 10^3 (0.0-1.0); MONOCYTES % (AUTO) 8 % (0-12); NEUTROPHILS # (AUTO) 4.2 X 10^3 (1.8-7.8); NEUTROPHILS % (AUTO) 38 % (42-75); PLATELET COUNT 98 10^3/uL (130-400); RED CELL DISTRIBUTION WIDTH 16.6 % (10.0-14.5)
[2019-09-01 12:29] LABS: ALANINE AMINOTRANSFERASE 25 U/L (0-55); ALBUMIN 2.8 GM/DL (3.2-4.5); ALKALINE PHOSPHATASE 270 U/L (40-136); BILIRUBIN,TOTAL 1.5 MG/DL (0.1-1.0); BUN/CREATININE RATIO 22; CALCIUM 7.7 MG/DL (8.5-10.1); CARBON DIOXIDE 23 MMOL/L (21-32); CHLORIDE 99 MMOL/L (98-107); CREATININE SERUM 0.82 MG/DL (0.60-1.30); GFR ESTIMATED > 60; GLUCOSE 150 MG/DL (70-105); POTASSIUM 4.8 MMOL/L (3.6-5.0); SODIUM 133 MMOL/L (135-145); TOTAL PROTEIN 4.9 GM/DL (6.4-8.2); URIC ACID 3.6 MG/DL (2.6-7.2)
[2019-09-08 13:59] LABS: BASOPHILS # (AUTO) 0.1 10^3/uL (0.0-0.1); BASOPHILS % (AUTO) 2 % (0-10); EOSINOPHILS % (AUTO) 0 % (0-10); HEMATOCRIT 49 % (40-54); HEMOGLOBIN 16.7 G/DL (13.3-17.7); LYMPHOCYTES # (AUTO) 1.4 X 10^3 (1.0-4.0); LYMPHOCYTES % (AUTO) 23 % (12-44); MEAN CORPUSCULAR HEMOGLOBIN 33 PG (25-34); MEAN CORPUSCULAR HGB CONC 34 G/DL (32-36); MEAN CORPUSCULAR VOLUME 97 FL (80-99); MEAN PLATELET VOLUME 12.9 FL (7.4-10.4); MONOCYTES # (AUTO) 0.7 X 10^3 (0.0-1.0); MONOCYTES % (AUTO) 11 % (0-12); NEUTROPHILS # (AUTO) 3.9 X 10^3 (1.8-7.8); NEUTROPHILS % (AUTO) 64 % (42-75); PLATELET COUNT 94 10^3/uL (130-400); RED CELL DISTRIBUTION WIDTH 15.8 % (10.0-14.5); WHITE BLOOD COUNT 6.1 10^3/uL (4.3-11.0)
[2019-09-08 14:18] LABS: BUN/CREATININE RATIO 19; CARBON DIOXIDE 25 MMOL/L (21-32); CHLORIDE 101 MMOL/L (98-107); CREATININE SERUM 0.79 MG/DL (0.60-1.30); POTASSIUM 4.6 MMOL/L (3.6-5.0); SODIUM 135 MMOL/L (135-145)
[2019-09-08 14:19] LABS: CALCIUM 7.8 MG/DL (8.5-10.1); GFR ESTIMATED > 60; GLUCOSE 190 MG/DL (70-105); URIC ACID 5.9 MG/DL (2.6-7.2)
[~2019-09-24] VITALS: Ht 166.4 cm; Wt 83.0 kg
[~2019-09-24 09:14] MED LIST changes: +ACETAMINOPHEN 325 MG TAB (TYLENOL) CANCER CTR PO PRN; +ALLO300T2 PO; +ASPI-999 PO; +BENDAMUSTINE HCL IV SCH; +GLIM4TAB PO; -GLIM4TAB3 PO; +LOSA25TA41 PO; +NS IV 1000 ML (CANCER CTR) IV SCH; +NS IV ONE; +NS IV SCH; +ONDANSETRON MDV (CANCER CENTER 16 MG, DEXAMETHASONE INJECTION 10 MG in NS (IVPB) CANCER... IV SCH; +PALONOSETRON HCL 0.25 MG, DEXAMETHASONE INJECTION 10 MG in NS (IVPB) CANCER CENTER 50 ML IV SCH; +PANT40TA2 PO; +RASBURICASE IV ONE; +RITUXIMAB FOR IV SCH; +RITUXIMAB IV SCH; +SUCR1TAB36 PO; +[UNRECOGNIZED DRUG - OTHER] IV SCH; +diphenhydrAMINE 50 MG/ML INJ (CANCER CENTER) IV PRN; +morphine INJ 4 MG/ML 1 ML (CANCER CTR) ONE
[2019-09-24 09:44] LABS: BASOPHILS # (AUTO) 0.1 10^3/uL (0.0-0.1); BASOPHILS % (AUTO) 2 % (0-10); EOSINOPHILS # (AUTO) 0.1 10^3/uL (0.0-0.3); EOSINOPHILS % (AUTO) 1 % (0-10); HEMATOCRIT 51 % (40-54); HEMOGLOBIN 16.7 G/DL (13.3-17.7); LYMPHOCYTES # (AUTO) 3.5 X 10^3 (1.0-4.0); LYMPHOCYTES % (AUTO) 40 % (12-44); MEAN CORPUSCULAR HEMOGLOBIN 33 PG (25-34); MEAN CORPUSCULAR HGB CONC 33 G/DL (32-36); MEAN CORPUSCULAR VOLUME 100 FL (80-99); MEAN PLATELET VOLUME 12.7 FL (7.4-10.4); MONOCYTES # (AUTO) 0.8 X 10^3 (0.0-1.0); MONOCYTES % (AUTO) 9 % (0-12); NEUTROPHILS # (AUTO) 4.2 X 10^3 (1.8-7.8); NEUTROPHILS % (AUTO) 49 % (42-75); PLATELET COUNT 79 10^3/uL (130-400); RED CELL DISTRIBUTION WIDTH 15.1 % (10.0-14.5); WHITE BLOOD COUNT 8.7 10^3/uL (4.3-11.0)
[2019-09-24 10:00] LABS: BUN/CREATININE RATIO 18; CARBON DIOXIDE 29 MMOL/L (21-32); CHLORIDE 105 MMOL/L (98-107); CREATININE SERUM 0.84 MG/DL (0.60-1.30); POTASSIUM 4.1 MMOL/L (3.6-5.0); SODIUM 143 MMOL/L (135-145)
[2019-09-24 10:01] LABS: ALANINE AMINOTRANSFERASE 15 U/L (0-55); ALKALINE PHOSPHATASE 207 U/L (40-136); BILIRUBIN,TOTAL 1.2 MG/DL (0.1-1.0); CALCIUM 7.8 MG/DL (8.5-10.1); GFR ESTIMATED > 60; GLUCOSE 182 MG/DL (70-105); MAGNESIUM 1.4 MG/DL (1.6-2.4); URIC ACID 7.3 MG/DL (2.6-7.2)
[2019-09-24] MEDS ORDERED: ASPI-586 PO (16:32)
[2019-09-24] MEDS ORDERED: OXYC-529 PO (16:32)
[2019-09-24] MEDS ORDERED: ACYC400T PO (16:32)
[2019-09-24] MEDS ORDERED: PRAV40TA2 PO (16:32)
[2019-09-24] MEDS ORDERED: BISA10SU8 RC (16:32)
[2019-09-24] MEDS ORDERED: ONDA8TAB12 PO (16:32)
[2019-09-24] MEDS ORDERED: ALBU2.5V4 NEB (16:32)
[2019-09-24] MEDS ORDERED: MORP-33 PO (16:32)
[2019-09-24] MEDS ORDERED: PANT40TA3 PO (16:32)
[2019-09-25] MEDS ORDERED: ALPR0.254 PO (14:24)
[2019-09-25] MEDS ORDERED: SENN-141 PO (14:24)
[2019-09-25] MEDS ORDERED: SUCR1TAB PO (14:24)
[2019-09-29] MEDS ORDERED: APIX5TAB PO (09:37)
== END 2019-11-06 | disposition home or self-care (01) ==
LOC: ONC 09:14
PROVIDERS: ATTEND Internal Medicine Hematology & Oncology
DX: C83.11 Mantle cell lymphoma, lymph nodes of head, face, and neck (principal)
CPT/HCPCS: 36415; 36591; 80048; 80053; 80074; 83615; 83735; 84100; 84550; 85025; 96367; 96375; 96376; 96409; 96413; 96415; 99213; 99214; J9312

== ENCOUNTER 2019-09-24 12:00 | Inpatient (IN) | payer MEDICARE ==
[~2019-09-24] VITALS: Ht 165.1 cm; Wt 77.0 kg
[2019-09-24] VITALS (12 sets, daily range): BP systolic 84–109; BP diastolic 53–82
[~2019-09-24 12:00] MED LIST changes: -ACETAMINOPHEN 325 MG TAB (TYLENOL) CANCER CTR PO PRN; -BENDAMUSTINE HCL IV SCH; -NS IV 1000 ML (CANCER CTR) IV SCH; -NS IV ONE; -NS IV SCH; -ONDANSETRON MDV (CANCER CENTER 16 MG, DEXAMETHASONE INJECTION 10 MG in NS (IVPB) CANCER... IV SCH; -PALONOSETRON HCL 0.25 MG, DEXAMETHASONE INJECTION 10 MG in NS (IVPB) CANCER CENTER 50 ML IV SCH; -RASBURICASE IV ONE; -RITUXIMAB FOR IV SCH; -RITUXIMAB IV SCH; -[UNRECOGNIZED DRUG - OTHER] IV SCH; -diphenhydrAMINE 50 MG/ML INJ (CANCER CENTER) IV PRN; -morphine INJ 4 MG/ML 1 ML (CANCER CTR) ONE
[2019-09-24] MEDS ORDERED: HOLD METFORMIN - RECEIVED CONTRAST 20 ML VIAL IV SCH ×2 (12:15→12:30)
[2019-09-24] MEDS ORDERED: IOHEXOL 350 MG/ML 100 ML (OMNIPAQUE 350) VIAL IV ONE ×2 (12:15→12:30)
[2019-09-24] MEDS ORDERED: NS 100 ML (IVPB) BAG IV ONE ×2 (12:15→12:30)
--- NOTE | 2019-09-24 12:45 | NUR ---
SOLID WASTE ANALYST CONTACTED FOR A FAN.
--- NOTE | 2019-09-24 13:12 | ED Respiratory ---
General Chief Complaint: Respiratory Problems Stated Complaint: SOA Source: patient Exam Limitations: no limitations History of Present Illness Date Seen by Provider: Sep 24, 2019 Time Seen by Provider: 13:10 Initial Comments Sent to ER from cancer center with shortness of breath. Patient was recently diagnosed with a mantle cell lymphoma, had first chemotherapy 3 weeks ago. And feeling poorly for a while, presented to cancer center today for his second dose of chemotherapy. However his platelets were low and there were no lung sounds on the right, he was referred to the emergency room for angiogram/x-ray and further workup prior to initiating a second dose of chemotherapy. Timing/Duration: constant Severity: moderate Prior Episodes/Possible Cause: no prior episodes Associated Symptoms: No fever/chills; shortness of breath Allergies and Home Medications Allergies Coded Allergies: Penicillins (Verified Allergy, Severe, Anaphylaxis, 08/20/19) Home Medications Acyclovir 400 Mg Tablet, 400 MG PO BID, (Reported) Albuterol Sulfate 18 Gm Hfa.aer.ad, 1 PUFF INH Q4H PRN for WHEEZING, (Reported) Albuterol Sulfate 2.5 Mg/3 Ml Vial.neb, 2.5 MG NEB QID, (Reported) Allopurinol 300 Mg Tablet, 300 MG PO DAILY, (Reported) LAST FILLED #14 08-19-19 Aspirin 81 Mg Tablet.dr, 81 MG PO DAILY, (Reported) Bisacodyl 10 Mg Supp.rect, 10 MG RC DAILY PRN for CONSTIPATION-4TH LINE, (Reported) Glimepiride 4 Mg Tablet, 4 MG PO DAILY, (Reported) LAST FILLED #60 FOR 40 DAYS 1/2 AM AND 1 PM 05-16-19 Losartan Potassium 25 Mg Tablet, 25 MG PO DAILY, (Reported) Metoprolol Tartrate 50 Mg Tablet, 50 MG PO DAILY, (Reported) Morphine Sulfate 15 Mg Tablet.er, 15 MG PO Q12H, (Reported) Niacinamide 500 Mg Tablet, 500 MG PO DAILY, (Reported) Ondansetron HCl 8 Mg Tablet, 8 MG PO Q8H PRN for NAUSEA/VOMITING-1ST LINE, (Reported) Oxycodone HCl 5 Mg Tablet, 5-10 MG PO Q4H PRN for PAIN-SEVERE (8-10), (Reported) Pantoprazole Sodium 40 Mg Tablet.dr, 40 MG PO DAILY, (Reported) Pravastatin Sodium 40 Mg Tablet, 20 MG PO DAILY, (Reported) LAST FILLED #45 FOR 90 DAY SUPPLY 05-07-19 Sucralfate 1 Gm Tablet, 1 GM PO QID, (Reported) LAST FILLED #56 08-19-19 Patient Home Medication List Home Medication List Reviewed: Yes Review of Systems Review of Systems Constitutional: see HPI EENTM: see HPI Respiratory: see HPI, cough, short of breath Cardiovascular: no symptoms reported Genitourinary: no symptoms reported Musculoskeletal: no symptoms reported Skin: no symptoms reported Psychiatric/Neurological: No Symptoms Reported Hematologic/Lymphatic: No Symptoms Reported Immunological/Allergic: no symptoms reported Past Thfabwl-Vgagve-Kjjnqg Hx Patient Social History Type Used: Cigarettes 2nd Hand Smoke Exposure: Yes Recent Hopitalizations: No Immunizations Up To Date Date of Influenza Vaccine: Aug 12, 2018 Seasonal Allergies Seasonal Allergies: No Past Medical History Surgeries: Yes (bilat shoulder, bilat foot, kidney stone, discectomy) Gallbladder, Orthopedic Respiratory: Yes (pneumonia on 07/16/19, denies wearing oxygen at home) Pneumonia Cardiac: Yes Hypertension Neurological: No Genitourinary: No Gastrointestinal: No Musculoskeletal: No Endocrine: Yes Diabetes, 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 oz. kg; 29.49 BMI Method: General Appearance: WD/WN, no apparent distress Eyes: Bilateral Eye Normal Inspection, Bilateral Eye PERRL, Bilateral Eye EOMI HEENT: PERRL/EOMI, normal ENT inspection Neck: non-tender, full range of motion Respiratory: no respiratory distress, no accessory muscle use, other (essentially absent lung sounds on the right.) Cardiovascular: regular rate, rhythm, no murmur Gastrointestinal: normal bowel sounds, non tender, soft; No guarding, No rebound, No tenderness Neurologic/Psychiatric: alert, normal mood/affect, oriented x 3 Skin: normal color, warm/dry Progress/Results/Core Measures Suspected Sepsis SIRS Temperature: Pulse: Respiratory Rate: Laboratory Tests 09/24/19 13:00: White Blood Count 9.0 Blood Pressure / Mean: Laboratory Tests 09/24/19 13:00: Creatinine 0.85, INR Comment 1.1, Platelet Count 89L, Total Bilirubin 1.0 Results/Orders Lab Results Laboratory Tests Test 09/24/19 13:00 09/24/19 13:45 Range/Units White Blood Count 9.0 4.3-11.0 10^3/uL Red Blood Count 5.14 4.35-5.85 10^6/uL Hemoglobin 16.8 13.3-17.7 G/DL Hematocrit 52 40-54 % Mean Corpuscular Volume 101 H 80-99 FL Mean Corpuscular Hemoglobin 33 25-34 PG Mean Corpuscular Hemoglobin Concent 32 32-36 G/DL Red Cell Distribution Width 15.2 H 10.0-14.5 % Platelet Count 89 L 130-400 10^3/uL Mean Platelet Volume 12.7 H 7.4-10.4 FL Neutrophils (%) (Auto) 45 42-75 % Lymphocytes (%) (Auto) 44 12-44 % Monocytes (%) (Auto) 9 0-12 % Eosinophils (%) (Auto) 1 0-10 % Basophils (%) (Auto) 1 0-10 % Neutrophils # (Auto) 4.1 1.8-7.8 X 10^3 Lymphocytes # (Auto) 4.0 1.0-4.0 X 10^3 Monocytes # (Auto) 0.8 0.0-1.0 X 10^3 Eosinophils # (Auto) 0.1 0.0-0.3 10^3/uL Basophils # (Auto) 0.1 0.0-0.1 10^3/uL Prothrombin Time 14.8 H 12.2-14.7 SEC INR Comment 1.1 0.8-1.4 Sodium Level 143 135-145 MMOL/L Potassium Level 3.7 3.6-5.0 MMOL/L Chloride Level 106 98-107 MMOL/L Carbon Dioxide Level 32 21-32 MMOL/L Anion Gap 5 5-14 MMOL/L Blood Urea Nitrogen 17 7-18 MG/DL Creatinine 0.85 0.60-1.30 MG/DL Estimat Glomerular Filtration Rate > 60 BUN/Creatinine Ratio 20 Glucose Level 126 H 70-105 MG/DL Uric Acid 7.3 H 2.6-7.2 MG/DL Calcium Level 8.0 L 8.5-10.1 MG/DL Corrected Calcium 8.7 8.5-10.1 MG/DL Magnesium Level 1.5 L 1.6-2.4 MG/DL Total Bilirubin 1.0 0.1-1.0 MG/DL Aspartate Amino Transf (AST/SGOT) 27 5-34 U/L Alanine Aminotransferase (ALT/SGPT) 15 0-55 U/L Alkaline Phosphatase 205 H 40-136 U/L Total Protein 5.1 L 6.4-8.2 GM/DL Albumin 3.1 L 3.2-4.5 GM/DL Urine Color YELLOW Urine Clarity SL CLOUDY Urine pH 6.0 5-9 Urine Specific Bozman 1.025 H 1.016-1.022 Urine Protein 3+ H NEGATIVE Urine Glucose (UA) NEGATIVE NEGATIVE Urine Ketones NEGATIVE NEGATIVE Urine Nitrite NEGATIVE NEGATIVE Urine Bilirubin 1+ H NEGATIVE Urine Urobilinogen 1.0 < = 1.0 MG/DL Urine Leukocyte Esterase NEGATIVE NEGATIVE Urine RBC (Auto) NEGATIVE NEGATIVE Urine RBC NONE /HPF Urine WBC NONE /HPF Urine Squamous Epithelial Cells RARE /HPF Urine Crystals NONE /LPF Urine Bacteria TRACE /HPF Urine Casts PRESENT /LPF Urine Hyaline Casts RARE /LPF Urine Mucus SMALL H /LPF Urine Culture Indicated NO My Orders Orders - ALLEGRA HAYNES PICKLER HELPER Cbc With Automated Diff (09/24/19 12:08) Comprehensive Metabolic Panel (09/24/19 12:08) Ua Culture If Indicated (09/24/19 12:08) Ed Iv/Invasive Line Start (09/24/19 12:08) Protime With Inr (09/24/19 12:08) Uric Acid (09/24/19 12:08) Magnesium (09/24/19 12:08) Ct Darinaa Chest/Noang Abd-Pelv W (09/24/19 12:08) Chest 1 View, Ap/Pa Only (09/24/19 12:08) Iohexol Injection (Omnipaque 350 Mg/Ml 1 (09/24/19 12:15) Received Contrast (Hold Metformin- Contr (09/24/19 12:15) Ns (Ivpb) (Sodium Chloride 0.9% Ivpb Bag (09/24/19 12:15) Albuterol/Ipra Inhalation Soln (Duoneb I (09/24/19 13:15) Svn Small Volume Nebulizer (09/24/19 13:09) Lorazepam Injection (Ativan Injection) (09/24/19 13:45) Medications Given in ED Current Medications Medications Dose Ordered Sig/Balbir Route Start Time Stop Time Status Last Admin Dose Admin Albuterol/ Ipratropium 3 ml ONCE ONCE INH 09/24/19 13:15 09/24/19 13:16 DC 09/24/19 13:21 3 ML Iohexol 100 ml ONCE ONCE IV 09/24/19 12:15 09/24/19 12:16 DC 09/24/19 15:32 100 ML Lorazepam 0.5 mg ONCE PRN IVP 09/24/19 13:45 09/24/19 13:39 0.5 MG Sodium Chloride 100 ml ONCE ONCE IV 09/24/19 12:15 09/24/19 12:16 DC 09/24/19 15:32 80 ML Vital Signs/I&O 09/24/19 09/24/19 12:00 13:23 Temp 36.4 Pulse 94 Resp 23 B/P (MAP) 109/82 (91) Pulse Ox 93 96 O2 Delivery Nasal Cannula O2 Flow Rate 5.00 5.00 Capillary Refill : Progress Note : Progress Note NAME: [facility] REC#: [id number] PT STATUS: REG ER : 1945 PHYSICIAN: ALLEGRA HAYNES APRN ADMIT DATE: 09/24/19/ER Draft POSDate of Exam:09/24/19 CHEST 1 VIEW, AP/PA ONLY INDICATION: Shortness of breath. TECHNIQUE: A frontal chest was obtained at 1:29 PM. COMPARISON: There is no previous study for comparison. FINDINGS: There is complete opacification of the right hemithorax which could represent a combination of pleural fluid, infiltrate, and/or atelectasis. There is normal heart size. There is mild central vascular congestion visualized on the left side. A Port-A-Cath over the left chest wall is seen with the tip overlying the SVC. There is no pneumothorax. IMPRESSION: Complete opacification of the right hemithorax as above which may represent a combination of infiltrate, atelectasis, and/or pleural fluid. Consider CT for further evaluation as clinically warranted. There is mild central vascular prominence noted. Dictated on workstation # [id number] Dict: 09/24/19 1340 Trans: 09/24/19 1343 [id number] Interpreted by: STEFFEN HERRMANN MD Electronically signed by: ECG Initial ECG Impression Date: Sep 24, 2019 Departure Communication (Admissions) Time/Spoke to Consulting Phy: 14:[address] Karla Sorto, will consult Dr. Torres as well. Patient was anxious, doesn't want to stay in the hospital, scared of needles and doesn't want thoracentesis, they feel anxious, lorazepam 0.5 mg of has been given. Impression Primary Impression: Malignant pleural effusion Disposition: ADMITTED INPATIENT Condition: Stable Departure-Patient Inst. Referrals: CHICHI KHAN DO (PCP/Family) Primary Care Physician ALLEGRA HAYNES APRN Sep 24, 2019 13:12 POS
[2019-09-24 13:15] LABS: BASOPHILS # (AUTO) 0.1 10^3/uL (0.0-0.1); BASOPHILS % (AUTO) 1 % (0-10); EOSINOPHILS # (AUTO) 0.1 10^3/uL (0.0-0.3); EOSINOPHILS % (AUTO) 1 % (0-10); HEMATOCRIT 52 % (40-54); HEMOGLOBIN 16.8 G/DL (13.3-17.7); LYMPHOCYTES % (AUTO) 44 % (12-44); MEAN CORPUSCULAR HEMOGLOBIN 33 PG (25-34); MEAN CORPUSCULAR HGB CONC 32 G/DL (32-36); MEAN CORPUSCULAR VOLUME 101 FL (80-99); MEAN PLATELET VOLUME 12.7 FL (7.4-10.4); MONOCYTES # (AUTO) 0.8 X 10^3 (0.0-1.0); MONOCYTES % (AUTO) 9 % (0-12); NEUTROPHILS # (AUTO) 4.1 X 10^3 (1.8-7.8); NEUTROPHILS % (AUTO) 45 % (42-75); PLATELET COUNT 89 10^3/uL (130-400); RED CELL DISTRIBUTION WIDTH 15.2 % (10.0-14.5)
[2019-09-24] MEDS ORDERED: RT-ALBUTEROL/IPRATROPIUM 3 ML (DUONEB) VIAL INH ONE (13:15)
[2019-09-24 13:26] LABS: INR 1.1 (0.8-1.4); PROTHROMBIN TIME PATIENT 14.8 SEC (12.2-14.7)
[2019-09-24 13:35] LABS: ALANINE AMINOTRANSFERASE 15 U/L (0-55); ALBUMIN 3.1 GM/DL (3.2-4.5); ALKALINE PHOSPHATASE 205 U/L (40-136); BUN/CREATININE RATIO 20; CARBON DIOXIDE 32 MMOL/L (21-32); CHLORIDE 106 MMOL/L (98-107); CREATININE SERUM 0.85 MG/DL (0.60-1.30); GFR ESTIMATED > 60; GLUCOSE 126 MG/DL (70-105); MAGNESIUM 1.5 MG/DL (1.6-2.4); POTASSIUM 3.7 MMOL/L (3.6-5.0); SODIUM 143 MMOL/L (135-145); TOTAL PROTEIN 5.1 GM/DL (6.4-8.2); URIC ACID 7.3 MG/DL (2.6-7.2)
--- NOTE | 2019-09-24 13:43 | Diagnostic Imaging Report ---
INDICATION: Shortness of breath. TECHNIQUE: A frontal chest was obtained at 1:29 PM. COMPARISON: There is no previous study for comparison. FINDINGS: There is complete opacification of the right hemithorax which could represent a combination of pleural fluid, infiltrate, and/or atelectasis. There is normal heart size. There is mild central vascular congestion visualized on the left side. A Port-A-Cath over the left chest wall is seen with the tip overlying the SVC. There is no pneumothorax. IMPRESSION: Complete opacification of the right hemithorax as above which may represent a combination of infiltrate, atelectasis, and/or pleural fluid. Consider CT for further evaluation as clinically warranted. There is mild central vascular prominence noted. Dictated by: Dictated on workstation # [id number]
[2019-09-24] MEDS ORDERED: LORazepam INJ 2 MG/ML (ATIVAN) VIAL IVP PRN (13:45)
[2019-09-24 13:56] LABS: CLARITY,URINE SL CLOUDY; COLOR,URINE YELLOW; GLUCOSE, URINE (UA) NEGATIVE (NEGATIVE); KETONES,URINE NEGATIVE (NEGATIVE); LEUKOCYTE ESTERASE ,URINE NEGATIVE (NEGATIVE); NITRITE,URINE NEGATIVE (NEGATIVE); PROTEIN,URINE 3+ (NEGATIVE)
[2019-09-24 14:12] LABS: BACTERIA,URINE TRACE /HPF; BILIRUBIN,URINE 1+ (NEGATIVE); HYALINE CASTS, URINE RARE /LPF; SQUAMOUS EPITHELIAL CELL,UR RARE /HPF
--- NOTE | 2019-09-24 14:50 | NUR ---
Pt having difficulty breathing. Tae notifed. RT called for bipap.
--- NOTE | 2019-09-24 14:56 | NUR ---
López from RT here to place pt on bipap.
--- NOTE | 2019-09-24 15:06 | NUR ---
attempted to call report; nurse unavailable
--- NOTE | 2019-09-24 15:40 | NUR ---
TIMELINE NOTE: 1540: PT ARRIVED IN THE UNIT WITH PURIFICATION SUPERVISOR AND RN FROM ED. PT JUST COMPLETED CT. SATS 92% ON [address] ORTIZ ARRIVES SHORTLY LATER AND DR GREGORY THE SAME. BSM APPLIED. ATTEMPTED TO FIND PATIENTS DAUGHTERS BUT UNABLE TO FIND THEM. 1600: DR GREGORY AND MED STUDENTS X2 AT BEDSIDE FOR THORACENTESIS. CONSENT OBTAINED FROM PATIENT. PROCEDURE PERFORMED WITH RETURN OF 3.3L RED CLOUDY LIQUID. SPECIMEN SENT TO THE LAB. DR. GREGORY LOOKING OVER ORDERS. 1730: ORDERS REVIEWED. HEPARIN GTT STARTED PER PROTOCOL. VERIFIED WITH RN X2. PT HAVING INCREASED HYPOXIA DESPITE INTERVENTION. UP TO 15L VIA MASK WITH SATS 85%. NOTIFIED DR. GREGORY AND ORDERS FOR VAPOTHERM AND BIPAP OBTAINED. REPEAT CXR AND LASIX ORDERED PER DR GREGORY. RT NOTIFIED AND PT PLACED ON VAPOTHERM AT 40L 100% WITH SATS ONLY 89%. PT PLACED ON BIPAP 60% WITH SATS 91-92%. PT RESTING WITH EYES CLOSED BUT AWAKENS TO VERBAL STIMULI. MONITORING THIS PATIENT CLOSELY. DAUGHTERS ARE AT BEDSIDE.
[2019-09-24] MEDS ORDERED: CATHETER FLUSH 10 ML SYR IV PRN (15:45)
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
--- NOTE | 2019-09-24 15:55 | NUR ---
low bp from [id number] due to pt being inCT with arm bent overhead.
--- NOTE | 2019-09-24 16:04 | Diagnostic Imaging Report ---
EXAMINATION: CT angiography chest PE with contrast, CT abdomen and pelvis with contrast. TECHNIQUE: Multiple contiguous axial CT images of the thorax are obtained after intravenous administration of contrast. 3D MIP reformatted images obtained according to PE protocol. Multiple contiguous axial images were obtained through the abdomen and pelvis after administration of intravenous contrast. All CT scans use one or more of the following dose optimizing techniques: automated exposure control, MA and/or KvP adjustment based on a patient size and exam type, or iterative reconstruction. HISTORY: Shortness of breath. COMPARISON: 08/23/2019. FINDINGS: There is a pulmonary embolus in the superior lingular branch of the left upper pulmonary artery. No other pulmonary emboli are seen. No CT evidence of right ventricular strain. There is complete collapse of the right lung. There is a large right pleural effusion with pleural enhancement concerning for pleural metastatic disease. Bulky mediastinal lymphadenopathy also involving the right hilum has increased in size compared to prior exam. At the level of the luis, the confluent adenopathy measures 6.4 x 4.9 cm, previously 5.0 x 4.8 cm. There is obstruction of the right lower lobe bronchus and marked narrowing of the right upper lobe bronchus. The right middle lobe bronchus is also obstructed. Left hilar lymphadenopathy is seen. Para-aortic lymphadenopathy is seen. These are also increased from prior exam. There is mild edema in the left lung but no consolidation. There is a small left pleural effusion. Liver is enlarged and there is a small amount of perihepatic ascites. Gallbladder is absent. The spleen is also enlarged. Pancreas is normal. Adrenal glands are normal. There is confluent retroperitoneal lymphadenopathy. This has increased from prior exam with the confluent lymph node mass measuring 8.8 x 5.8 cm, previously 7.5 x 4.6 cm. Numerous enlarged mesenteric lymph nodes are also seen and are increased from prior exam. There are multiple cysts in the kidneys. No hydronephrosis. Bilateral nonobstructing renal stones are seen. The aorta is surrounded by confluent adenopathy but there is no aortic narrowing. No dilated bowel is seen. There are no suspicious osseous lesions. IMPRESSION: 1. Segmental pulmonary embolus in the superior lingular branch of the left upper lobe. 2. Large right pleural effusion with pleural enhancement and complete collapse of the right lung in keeping with pleural metastatic disease. There is mediastinal shift to the left. 3. Increase in extensive mediastinal and retroperitoneal mesenteric lymphadenopathy. 4. Hepatosplenomegaly. Critical findings communicated to nurse practitioner Tiffany by Dr. Saldana on 09/24/2019 at 04:00 p.m. Dictated by: Dictated on workstation # [id number]
--- NOTE | 2019-09-24 16:30 | Pulmonary Consultation ---
History of Present Illness History of Present Illness Date of Admission Allergies and Home Medications Allergies Coded Allergies: Penicillins (Verified Allergy, Severe, Anaphylaxis, 08/20/19) Home Medications Albuterol Sulfate 18 Gm Hfa.aer.ad, 1 PUFF INH Q4H PRN for WHEEZING, (Reported) Allopurinol 300 Mg Tablet, 300 MG PO DAILY, (Reported) Aspirin 81 Mg Tab.chew, 81 MG PO DAILY, (Reported) Gabapentin 300 Mg Capsule, 300 MG PO BID, (Reported) Glimepiride 4 Mg Tablet, 4 MG PO DAILY, (Reported) Losartan Potassium 25 Mg Tablet, 25 MG PO DAILY, (Reported) Metformin HCl 1,000 Mg Tablet, 500 MG PO BID, (Reported) Metoprolol Tartrate 50 Mg Tablet, 50 MG PO DAILY, (Reported) Niacinamide 500 Mg Tablet, 1,000 MG PO BID, (Reported) take 2 (500mg) tabs Pantoprazole Sodium 40 Mg Tablet.dr, 40 MG PO DAILY, (Reported) Pravastatin Sodium 20 Mg Tablet, 20 MG PO DAILY, (Reported) Sucralfate 1 Gm Tablet, 1 GM PO QID, (Reported) Past Hexspii-Qxgflr-Outfxi Hx Past Med/Social Hx: Reviewed Nursing Past Med/Soc Hx Patient Social History Alcohol Use: Denies Use Recreational Drug Use: No Smoking Status: Current Everyday Smoker Type Used: Cigarettes 2nd Hand Smoke Exposure: Yes Recent Foreign Travel: No Contact w/Someone Who Travel: No Recent Infectious Disease Expo: No Recent Hopitalizations: No Immunizations Up To Date Date of Pneumonia Vaccine: Sep 24, 2016 Date of Influenza Vaccine: Sep 10, 2019 Seasonal Allergies Seasonal Allergies: No Past Medical History Surgeries: Yes (bilat shoulder, bilat foot, kidney stone, discectomy) Gallbladder, Orthopedic Respiratory: Yes (pneumonia on 07/16/19, denies wearing oxygen at home) Pneumonia Cardiac: Yes Hypertension Neurological: No Genitourinary: No Gastrointestinal: No Musculoskeletal: No Endocrine: Yes Diabetes, 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 oz. kg; 27.00 BMI Method: Exam Exam Vital Signs Date Time Temp Pulse Resp B/P (MAP) Pulse Ox O2 Delivery O2 Flow Rate FiO2 09/24/19 15:35 36.4 95 15 93/78 (91) 96 Nasal Cannula 5.00 09/24/19 15:03 96 15 100 35.00 09/24/19 13:23 96 5.00 09/24/19 12:00 36.4 94 23 109/82 (91) 93 Nasal Cannula 5.00 Height & Weight Height: '" Weight: lbs. oz. kg; 27.00 BMI Method: General Appearance: No Apparent Distress, Chronically ill Respiratory: Decreased Breath Sounds (on right), Rhonci (on left) Cardiovascular: Regular Rate, Rhythm, No JVD, No Murmur Capillary Refill: Less Than 3 Seconds Gastrointestinal: normal bowel sounds, non tender, soft; No guarding, No rebound, No tenderness Extremity: No Calf Tenderness, No Pedal Edema Neurologic/Psychiatric: Alert, Other (drowsy) Skin: Normal Color, Warm/Dry Results Lab Laboratory Tests 09/24/19 13:00 Assessment/Plan Assessment/Plan Acute respiratory failure secondary to right pleural effusion -Will do emergent thoracentesis Acute PE -Will start full hep gtt. Hypotension -Monitor close -Pt will be higher risk for TPA Thrombocytopenia right lung opacification secondary to large right pleural effusion Hx of lymphoma ALLEN GREGORY DO Sep 24, 2019 16:30 POS
[2019-09-24] MEDS ORDERED: PANT40TA3 PO (16:32)
[2019-09-24] MEDS ORDERED: MORP-33 PO (16:32)
[2019-09-24] MEDS ORDERED: BISA10SU8 RC (16:32)
[2019-09-24] MEDS ORDERED: ACYC400T PO (16:32)
[2019-09-24] MEDS ORDERED: OXYC-529 PO (16:32)
[2019-09-24] MEDS ORDERED: PRAV40TA2 PO (16:32)
[2019-09-24] MEDS ORDERED: ASPI-586 PO (16:32)
[2019-09-24] MEDS ORDERED: ALBU2.5V4 NEB (16:32)
[2019-09-24] MEDS ORDERED: ONDA8TAB12 PO (16:32)
--- NOTE | 2019-09-24 16:33 | NUR ---
UNABLE TO SPEAK WITH THE PATIENT REGARDING MEDICATIONS PRIOR TO THE END OF SHIFT. I REVIEWED THE MED REC WITH THE MED LIST FROM THE [facility]. I COMPARED THIS WITH THE EXT MED HX. SEVERAL MEDS LISTED ON THE [facility]ER CENTER LIST ARE PAST DUE FOR REFILL ACCORDING TO THE EXT MED HX. I NOTED THEM WITH THE YELLOW [facility] ATTENTION TRIANGLE. I WILL FOLLOW UP WITH THE PATIENT IN THE MORNING TO COMPLETE AND REVIEW THE MED REC. Addendum: 09/25/19 at 1022 by ALEXANDRE HOLBROOK CPhT PATIENT ASKED THAT I CALL HIS DAUGHTER, I CALLED AND SPOKE WITH MARII AT THIS TIME. SHE STATES THEY HAVE A LIST THAT HAS BEEN RECENTLY WRITTEN OUT AND UPDATED BUT WOULD LIKE TO GO OVER IT WITH ME WHEN THEY RETURN TO THE HOSPITAL IN A COUPLE OF HOURS. I WILL CHECK BACK LATER WHEN THEY HAVE RETURNED TO COMPLETE THE MED REC. Addendum: 09/25/19 at 1241 by ALEXANDRE HOLBROOK CPhT DAUGHTER STILL HAS NOT ARRIVED YET, FAMILY IN ROOM NOW, SISTER, DOES NOT HAVE THE MED LIST. Addendum: 09/25/19 at 1437 by ALEXANDRE HOLBROOK [facility] SPOKE WITH THE PATIENTS DAUGHTER WHO IS NOW IN THE ROOM. WE WENT OVER THE EXT MED HX AND SHE VERIFIED WHAT HE IS TAKING. SHE DOES NOT HAVE A COPY OF THE LIST WITH HER, HER SISTER HAS IT BUT SHE STATES SHE KNOWS HIS MEDICATIONS. HIS CARAFATE WAS LAST FILLED #56 FOR 14 DAYS 08-19-19 - DAUGHTER STATES HE TAKES 1/2 TAB AT BEDTIME JUST NEEDED FOR UPSET STOMACH. HIS GLIMEPIRIDE AND PRAVASTATIN ARE PAST DUE FOR REFILL. I NOTED THE PAST DUE FILL DATE ON THE MED REC. 05-16-19 GLIMEPIRIDE 4MG #60 FOR 40 DAYS 1/2 AM AND 1 EVENING- FAMILY REPORTS HE TAKES GLIPIZIDE INSTEAD NOW HOWEVER [facility] HAS NEVER FILLED GLIPIZIDE. THEY DO REPORT HE ONLY TAKES 1 TAB ONCE DAILY IN THE MORNING. 05-07-19 PRAVASTATIN 40MG #45 FOR 90 DAYS TAKES 1/2 TAB DAILY MEDS THAT WERE ON THE LIST FROM THE [facility]ER CENTER THAT HE IS NOT TAKING: ALLOPURINOL- WAS FILLED 300MG #14 08-19-19 -THIS IS FINISHED AND HE NO LONGER TAKES IT FUROSEMIDE 20MG FILLED #20 FOR 10 DAYS 09-02-19 (WAS ORDERED SHORT TERM AT THAT TIME) POTASSIUM 10MEQ FILLED #20 FOR 10 DAYS 08-23-19 (WAS ORDERED SHORT TERM AT THAT TIME) ASPIRIN 81MG DAILY (STATES HE IS NOT TAKING THIS) PROMETHAZINE 12.5MG (MADE HIM TOO DROWSY, NO LONGER TAKES) GABAPENTIN 300MG #270 FOR 90 DAYS FILLED 09-10-18 (FAMILY STATES HE IS TAKING THIS BID HOWEVER I CALLED [facility] AND [facility] HAVE NOT DISPENSED IT MORE RECENTLY, [facility] SHOWS THE LAST FILL DATE 2017 - FAMILY STATES HE DOES NOT GET MEDS ANYWHERE BESIDES [facility]. I REMOVED IT FROM THE MED REC AT THIS TIME) IN ADDITION TO THE LIST FROM THE [facility]ER [facility]ENTER HE TAKES THE FOLLOWING: XANAX 0.25MG #30 FILLED 08-15-19 - HE ONLY TAKES 1/2 TAB AND ONLY NEEDED ALBUTEROL NEBULIZER SOLUTION NEEDED SENNA OTC BID PRN OTC MEDS INCLUDE: NIACIN 2 BID (ON LIST FROM CANCER CENTER ONLY 1 DAILY) SENNA BID PRN DULCOLAX SUPPOSITORY PRN
--- NOTE | 2019-09-24 16:36 | Pulmonary Procedures ---
Pulmonary Procedures Date of Procedure Date of Service: Sep 24, 2019 Procedure: US guided complex thoracentesis Preop DX: pleural effusion post op DX: 3300cc of dark yellow fluid obtained Complications: None After informed consent obtained US was used to localize pleural fluid. Pt has large R pleural effusion. Skin was anesthetized at approximately the 10th ICS mid axillary line. Thoracentesis needle was advanced through the 10th ICS mid axillary line. Needle was removed and catheter left in place.3300cc of dark yellow fluid obtained using vacuum bottles. Catheter was then removed. Pt tolerated procedure well. No complications noted. ALLEN GREGORY DO Sep 24, 2019 16:36 POS
[2019-09-24] MEDS ORDERED: LACTATED RINGERS 1,000 ML IV SCH ×2 (16:45)
[2019-09-24] MEDS ORDERED: LACTATED RINGERS 1,000 ML IV ONE (16:45)
[2019-09-24] MEDS ORDERED: LIDOCAINE UROJET 2% GEL 10 ML PKG ONE (16:47)
--- NOTE | 2019-09-24 16:55 | Diagnostic Imaging Report ---
INDICATION: Status post right thoracentesis. COMPARISON: Imaging from the same date. TECHNIQUE: Single radiograph of the chest dated September 24, 2019. FINDINGS: Significantly improved aeration of the right lung is noted with persistent extensive right-sided pulmonary opacities and small right basilar pleural effusion. The opacities are greatest within the right lung base. Minimal left basilar opacities. No significant left pleural effusion. No pneumothorax. Port-A-Cath is again noted with the hub overlying the left chest. Osseous structures appear stable. IMPRESSION: Significantly improved aeration of the right lung without residual pneumothorax status post right-sided thoracentesis. Persistent small right pleural effusion with associated extensive adjacent right-sided pulmonary opacities are present. These opacities may relate to atelectasis, infiltrate, reexpansion edema or possibly underlying mass lesions. Recommend continued radiographic followup. Dictated by: Dictated on workstation # [id number]
[2019-09-24 17:04] LABS: HEMOGLOBIN 16.4 G/DL (13.3-17.7); MEAN PLATELET VOLUME 12.3 FL (7.4-10.4); WHITE BLOOD COUNT 7.7 10^3/uL (4.3-11.0)
[2019-09-24 17:34] LABS: BODY FLUID SOURCE THORACEN
[2019-09-24] MEDS: HEParin 1000 UNIT/ML (10ML VIAL) FOR BOLUS IV SCH (17:34)
[2019-09-24 17:35] LABS: BODY FLUID APPEARENCE MOD CLDY; BODY FLUID COLOR AMBER
[2019-09-24] MEDS: HEParin DRIP 25000 UNIT/500ML 500 ML IV SCH (17:35)
[2019-09-24 17:41] LABS: BODY FLUID PH 7.5
[2019-09-24 17:47] LABS: BODY FLUID TRIGLYCERIDES 113 MG/DL; LDH,BODY FLUID 354 U/L; TOTAL PROTEIN,BODY FLUID 2.3 G/DL
[2019-09-24 17:47] LABS: ABG BASE EXCESS 5.5 MMOL/L (-2.5-2.5); ABG OXYGEN SATURATION 93 % (94-100); ABG PCO2 61 MMHG (35-45); ABG PO2 71 MMHG (79-93); ALLENS TEST YES-POS; INSPIRED O2 35%; PATIENT TEMP 37; VENTILATOR NO
[2019-09-24 17:50] LABS: ABG PH 7.33 (7.37-7.43)
[2019-09-24 17:50] LABS: GLUCOSE,BODY FLUID 113 MG/DL
[2019-09-24 18:18] LABS: INR 1.2 (0.8-1.4); PROTHROMBIN TIME PATIENT 15.7 SEC (12.2-14.7)
[2019-09-24] MEDS ORDERED: FUROSEMIDE 40 MG/4 ML INJ (LASIX) IVP ONE (18:30)
[2019-09-24] MEDS ORDERED: FUROSEMIDE 40 MG/4 ML INJ (LASIX) ONE (18:32)
[2019-09-24] MEDS: LACTATED RINGERS 1,000 ML IV SCH (18:40)
--- NOTE | 2019-09-24 18:41 | Diagnostic Imaging Report ---
INDICATION: Hypoxia post right-sided thoracentesis. TECHNIQUE: Single view chest, 6:30 p.m. CORRELATION STUDY: 09/24/2019. FINDINGS: Heart size remains enlarged with mediastinum generally stable. Vasculature appears relatively stable centrally. There is increasing density through the right lung with presence of an asymmetric consolidation in the right lung base and a small right pleural effusion. No appreciable pneumothorax. Left lung appears to be slightly hyperinflated and overall generally clear. Left-sided [id number] catheter is stable. IMPRESSION: 1. There does appear to be asymmetric increased airspace disease in the right lung. Given history of post thoracentesis, this could be reflective of asymmetric post-thoracentesis pulmonary edema. Dictated by: Dictated on workstation # [id number]
[2019-09-24 18:53] LABS: BODY FLUID RBC COUNT 5875 /uL; BODY FLUID WBC TOTAL COUNT 2425 /uL
[2019-09-24 20:23] LABS: ABG BASE EXCESS 4.9 MMOL/L (-2.5-2.5); ABG OXYGEN SATURATION 91 % (94-100); ABG PCO2 46 MMHG (35-45); ABG PH 7.42 (7.37-7.43); ABG PO2 59 MMHG (79-93); ABG TCO2 30.7 MMOL/L (21.0-31.0)
[2019-09-24 20:24] LABS: ALLENS TEST YES-POS; INSPIRED O2 60% BIPAP; PATIENT TEMP 36.5; VENTILATOR NO
[2019-09-24 21:39] LABS: BF OTHER CELLS 1 %; LYMPHOCYTES,BODY FLUID 82 %
[2019-09-24] MEDS: RT-ALBUTEROL/IPRATROPIUM 3 ML (DUONEB) VIAL INH SCH (22:37)
[2019-09-25] VITALS (23 sets, daily range): BP systolic 89–130; BP diastolic 45–79
[2019-09-25] MEDS: inSUlin ASPART (NovoLOG) 1 UNIT/0.01 ML (CHARGE PER UNIT) SC SCH ×4 (00:13→18:13)
--- NOTE | 2019-09-25 00:51 | NUR ---
E-ICU NOTIFIED BY THIS RN AT THIS TIME IN REGARDS TO PT'S LOW BLOOD PRESSURES. NO NEW ORDERS RECEIVED AT THIS TIME.
--- NOTE | 2019-09-25 01:19 | NUR ---
NEW ORDER RECEIVED FOR LR 500 CC OVER 30 MINS PER E-ICU
[2019-09-25] MEDS ORDERED: LACTATED RINGERS 500 ML IV SCH (01:30)
[2019-09-25] MEDS: LACTATED RINGERS 1,000 ML IV SCH ×2 (02:01→10:46)
[2019-09-25] MEDS: RT-ALBUTEROL/IPRATROPIUM 3 ML (DUONEB) VIAL INH PRN (02:49)
[2019-09-25 03:15] LABS: ABG BASE EXCESS 4.1 MMOL/L (-2.5-2.5); ABG OXYGEN SATURATION 92 % (94-100); ABG PCO2 48 MMHG (35-45); ABG PH 7.39 (7.37-7.43); ABG PO2 64 MMHG (79-93); ABG TCO2 30.3 MMOL/L (21.0-31.0); ALLENS TEST YES-POS
[2019-09-25 03:16] LABS: INSPIRED O2 70% BIPAP; PATIENT TEMP 36.6; VENTILATOR NO
[2019-09-25 03:16] LABS: BASOPHILS # (AUTO) 0.1 10^3/uL (0.0-0.1); BASOPHILS % (AUTO) 1 % (0-10); EOSINOPHILS % (AUTO) 0 % (0-10); HEMATOCRIT 49 % (40-54); HEMOGLOBIN 16.1 G/DL (13.3-17.7); LYMPHOCYTES % (AUTO) 30 % (12-44); MEAN CORPUSCULAR HEMOGLOBIN 33 PG (25-34); MEAN CORPUSCULAR HGB CONC 33 G/DL (32-36); MEAN CORPUSCULAR VOLUME 101 FL (80-99); MONOCYTES # (AUTO) 1.1 X 10^3 (0.0-1.0); MONOCYTES % (AUTO) 7 % (0-12); NEUTROPHILS # (AUTO) 10.5 X 10^3 (1.8-7.8); NEUTROPHILS % (AUTO) 63 % (42-75); PLATELET COUNT 78 10^3/uL (130-400); WHITE BLOOD COUNT 16.9 10^3/uL (4.3-11.0)
[2019-09-25 03:32] LABS: BAND NEUTROPHILS 2 %; BASOPHILS % (MANUAL) 0 %; EOSINOPHILS % (MANUAL) 0 %; LYMPHOCYTES % (MANUAL) 20 %; MONOCYTES % (MANUAL) 6 %; NEUTROPHILS % (MANUAL) 68 %; REACTIVE LYMPHOCYTES 4 %; SMUDGE CELLS SLIGHT
[2019-09-25 03:33] LABS: ANISOCYTOSIS SLIGHT
[2019-09-25 03:35] LABS: BUN/CREATININE RATIO 21; CALCIUM 7.7 MG/DL (8.5-10.1); CARBON DIOXIDE 25 MMOL/L (21-32); CHLORIDE 104 MMOL/L (98-107); CREATININE SERUM 0.91 MG/DL (0.60-1.30); GFR ESTIMATED > 60; GLUCOSE 88 MG/DL (70-105); MAGNESIUM 1.4 MG/DL (1.6-2.4); PHOSPHORUS 4.1 MG/DL (2.3-4.7); POTASSIUM 4.2 MMOL/L (3.6-5.0); SODIUM 142 MMOL/L (135-145)
--- NOTE | 2019-09-25 04:00 | Pulmonary Progress Note ---
RAMOS RIOS MED STUDENT 09/25/19 0400: Subjective Date Seen by a Provider: Sep 25, 2019 Time Seen by a Provider: 05:11 Subjective/Events-last exam Patient reports that he is currently feeling well. He is tolerating the Bipap well. He denies shortness of breath, cough, chest pain, easy bruising, epistaxis, fevers, chills, night sweats, numbness and tingling of extremities. Patient states that he recently began undergoing chemotherapy for mantle cell lymphoma approximately 2 weeks ago, and he was scheduled to receive his second dose yesterday. Records show that he had a small right pleural effusion on chest Xray 08/19/19. Sepsis Event Evaluation Height, Weight, BMI Height: '" Weight: lbs. oz. kg; 25.38 BMI Method: Exam Exam Vital Signs Date Time Temp Pulse Resp B/P (MAP) Pulse Ox O2 Delivery O2 Flow Rate FiO2 09/25/19 02:49 97 16 92 70.00 09/25/19 02:00 95 18 110/67 (81) 92 NIV Bilevel 70.00 09/25/19 01:00 98 09/25/19 01:00 98 16 89/57 (68) 91 NIV Bilevel 70.00 09/25/19 00:00 NIV Bilevel 70 09/25/19 00:00 98 16 91/65 (74) 92 NIV Bilevel 70.00 09/24/19 23:00 98 16 101/64 (76) 92 NIV Bilevel 70.00 09/24/19 22:38 93 22 94 70.00 09/24/19 22:24 36.2 96 90 70 09/24/19 22:00 94 15 96/79 (85) 93 NIV Bilevel 70.00 09/24/19 21:40 NIV Bilevel 70.00 09/24/19 21:00 96 16 97/70 (79) 90 NIV Bilevel 60.00 09/24/19 20:00 36.2 09/24/19 20:00 96 16 84/71 (75) 90 NIV Bilevel 60.00 09/24/19 20:00 NIV Bilevel 60 09/24/19 19:00 93 09/24/19 19:00 95 16 91/78 (82) 92 NIV Bilevel 60.00 09/24/19 18:39 94 20 60.00 09/24/19 18:33 84 Vapotherm 40.00 09/24/19 18:18 NIV Bilevel 60.00 09/24/19 18:00 92 15 106/64 (78) 92 OxyMask 15.00 09/24/19 17:00 93 14 100/66 (77) 93 OxyMask 15.00 09/24/19 16:00 94 12 85/53 (64) 94 OxyMask 15.00 09/24/19 15:45 Nasal Cannula 5.00 09/24/19 15:43 94 09/24/19 15:35 36.4 95 15 93/78 (91) 96 Nasal Cannula 5.00 09/24/19 15:03 96 15 100 35.00 09/24/19 13:23 96 5.00 09/24/19 12:00 36.4 94 23 109/82 (91) 93 Nasal Cannula 5.00 I & O 09/25/19 07:00 Intake Total 825 ml Output Total 400 ml Balance 425 ml Height & Weight Height: '" Weight: lbs. oz. kg; 25.38 BMI Method: General Appearance: No Apparent Distress, Chronically ill Respiratory: Decreased Breath Sounds (on right), Rhonci, Wheezing Cardiovascular: No JVD, No Murmur, Tachycardia Capillary Refill: Less Than 3 Seconds Gastrointestinal: normal bowel sounds, non tender, soft Extremity: No Calf Tenderness, Pedal Edema (1+ pitting L>R) Neurologic/Psychiatric: Alert, Oriented x3, Other Skin: Normal Color, Warm/Dry Results Lab Laboratory Tests 09/24/19 13:00 09/24/19 16:53 09/25/19 03:00 Radiology Chest Xray 09/24/19 1820 IMPRESSION: 1. There does appear to be asymmetric increased airspace disease in the right lung. Given history of post thoracentesis, this could be reflective of asymmetric post-thoracentesis pulmonary edema. Chest Xray 09/24/19 1631 IMPRESSION: Significantly improved aeration of the right lung without residual pneumothorax status post right-sided thoracentesis. Persistent small right pleural effusion with associated extensive adjacent right-sided pulmonary opacities are present. These opacities may relate to atelectasis, infiltrate, reexpansion edema or possibly underlying mass lesions. Recommend continued radiographic followup. Chest Xray 09/24/19 1208 IMPRESSION: Complete opacification of the right hemithorax as above which may represent a combination of infiltrate, atelectasis, and/or pleural fluid. Consider CT for further evaluation as clinically warranted. There is mild central vascular prominence noted. CTA 10/24/19 1208 IMPRESSION: 1. Segmental pulmonary embolus in the superior lingular branch of the left upper lobe. 2. Large right pleural effusion with pleural enhancement and complete collapse of the right lung in keeping with pleural metastatic disease. There is mediastinal shift to the left. 3. Increase in extensive mediastinal and retroperitoneal mesenteric lymphadenopathy. 4. Hepatosplenomegaly. Assessment/Plan Assessment/Plan Assessment/Plan Acute respiratory failure secondary to right pleural effusion -Emergent thoracentesis performed 09/24/19 -Fluid analysis LDH 354 and triglycerides 113, suspected chylothorax -Repeat chest Xray and CT -Bipap 70% O2 -Duoneb Q4RT and Q2PRN -Furosemide 20mg 09/24/19 Acute PE -Will start full hep gtt. -Monitor coag studies Hypotension -Monitor close -Pt will be higher risk for TPA Thrombocytopenia -Monitor right lung opacification secondary to large right pleural effusion -CT this AM Hx of mantle cell lymphoma -port placed 08/21/19 -Has had one round of chemo ALLEN GREGORY DO 09/25/19 0616: Subjective Time Seen by a Provider: 06:10 Exam Exam General Appearance: Chronically ill, Moderate Distress Respiratory: Decreased Breath Sounds (on right), Rhonci, Wheezing Cardiovascular: No JVD, No Murmur, Tachycardia Capillary Refill: Less Than 3 Seconds Gastrointestinal: normal bowel sounds, non tender, soft Extremity: No Calf Tenderness, Pedal Edema (1+ pitting L>R) Neurologic/Psychiatric: Alert Skin: Normal Color, Warm/Dry Assessment/Plan Assessment/Plan Acute respiratory failure secondary to right pleural effusion -Emergent thoracentesis performed 09/24/19 -Fluid analysis LDH 354 and triglycerides 113, suspected chylothorax -Repeat chest Xray and CT -Bipap 70% O2 -Duoneb Q4RT and Q2PRN -Furosemide 20mg 09/24/19 Acute PE -Will start full hep gtt. -Monitor coag studies Hypotension -Monitor close -Pt will be higher risk for TPA Thrombocytopenia -Monitor right lung opacification secondary to large right pleural effusion -CT this AM Hx of mantle cell lymphoma -port placed 08/21/19 -Has had one round of chemo RAMOS RIOS MED STUDENT Sep 25, 2019 04:00 ALLEN LIVE DO Sep 25, 2019 06:16 POS
[2019-09-25] MEDS: KCL 20 MEQ TAB (K-DUR) PO SCH (04:42)
[2019-09-25] MEDS: POTASSIUM CL 10MEQ/50ML IVPB 50 ML IV SCH (04:42)
[2019-09-25] MEDS: MAGNESIUM 1 GM/100 ML IVPB 100 ML IV SCH ×3 (04:43→05:51)
[2019-09-25] MEDS: RT-ALBUTEROL/IPRATROPIUM 3 ML (DUONEB) VIAL INH SCH ×5 (06:18→22:21)
--- NOTE | 2019-09-25 07:46 | Diagnostic Imaging Report ---
PROCEDURE: CT chest without contrast. TECHNIQUE: Multiple contiguous axial images were obtained through the chest without the use of intravenous contrast. Auto Exposure Controls were utilized during the CT exam to meet ALARA standards for radiation dose reduction. INDICATION: Pleural effusion and pulmonary embolism Comparison is made to study of one day earlier. There has been marked interval reduction in right pleural fluid since previous study. Mild residual bilateral pleural fluid is present. With reexpansion of the right lung there are prominent mixed interstitial and alveolar densities which may be due to reexpansion edema or pneumonitis. In addition, noncontrast images reveal areas of dense consolidation in the central right lung and right hilum measuring approximately 6 x 7 cm in diameter. There are air bronchograms coursing through these lesions although there does appear to be mild displacement. There is mild dependent atelectasis in both lower lobes. Unenhanced images also reveal presumed subcarinal adenopathy measuring up to 3.8 x 6.8 cm. There is an approximately 1.2 cm nodule in the anterior left epicardial fat. Upper abdominal images reveal extensive retroperitoneal and retrocrural adenopathy. IMPRESSION: Marked reduction in right pleural fluid since previous study. Extensive interstitial and alveolar densities in the right lung may be due to reexpansion pneumonitis or edema. In addition, there appears to be dominant mass in the central right lung extending into the hilum and mediastinum. This is associated with upper abdominal adenopathy. This could represent primary neoplasm of the lung although other considerations such as lymphoma could have this appearance. Correlation with possible pleural fluid analysis or bronchoscopy would be of use. Consideration could be given to CT-guided biopsy. Dictated by: Dictated on workstation # [id number]
--- NOTE | 2019-09-25 07:47 | Diagnostic Imaging Report ---
INDICATION: Pleural effusion and dyspnea. Upright portable AP view of the chest is obtained with comparison made study of 09/24/2019. FINDINGS: Volume loss in the right hemithorax is again identified with diffuse mixed interstitial and alveolar densities. Left anterior chest wall port is in place. There is no evidence of pneumothorax. Overall, no adverse change is seen. IMPRESSION: Edema and/or pneumonitis is seen throughout the right lung. There is volume loss in the right hemithorax and possibility of central bronchial obstructing lesion is not excluded. Clinical correlation would be useful. Dictated by: Dictated on workstation # [id number]
[2019-09-25] MEDS ORDERED: POLYETHYLENE GLYCOL 17 GM (MIRALAX) PACK PO PRN (08:15)
[2019-09-25] MEDS ORDERED: ONDANSETRON 4 MG (ZOFRAN) ORAL DISSOLVE TAB PO PRN (08:15)
[2019-09-25] MEDS ORDERED: MILK OF MAGNESIA 400 MG/5 ML 30 ML UDC PO PRN (08:15)
[2019-09-25] MEDS ORDERED: MELATONIN 3 MG TABLET PO PRN (08:15)
[2019-09-25] MEDS ORDERED: ONDANSETRON 4 MG/2 ML (SDV) Z0FRAN IV PRN (08:15)
[2019-09-25] MEDS ORDERED: ACETAMINOPHEN 325 MG TABLET PO PRN (08:15)
[2019-09-25] MEDS ORDERED: BISACODYL 10 MG SUPP (DULCOLAX) PR PRN (08:15)
[2019-09-25] MEDS: CEFEPIME INJECTION 1,000 MG in WATER (STERILE) FOR INJECTION 10 ML IV SCH ×3 (08:24→17:39)
[2019-09-25] MEDS: PANTOPRAZOLE 40 MG (PROTONIX) VIAL IV SCH (08:24)
--- NOTE | 2019-09-25 08:49 | Progress Note - Hospitalist ---
Subjective HPI/CC On Admission Date Seen by Provider: Sep 25, 2019 Time Seen by Provider: 08:44 Patient is a 73-year-old male with past medical history of mantle cell lymphoma who presented to the emergency department due to shortness of breath. He was scheduled to receive his second round of chemotherapy today but due to shortness of breath and overall malaise he was referred to the emergency department. He is quite sedated after receiving Ativan for CT scan and is unable to provide much history. Per report from the ER he was found to be thrombocytopenic with platelets of 89 and had a large right-sided pleural e ffusion. He is to being admitted to the ICU for thoracentesis. Subjective/Events-last exam Pt reports feeling much better. He had 3300ml out yesterday from thoracentesis. Actually requesting DC home but still on heparin gtt for PE. Focused Exam Lactate Level 09/25/19 06:58: Lactic Acid Level 1.56 Lactic Acid Level Laboratory Tests Test 09/25/19 06:58 Lactic Acid Level 1.56 MMOL/L (0.50-2.00) Objective Exam Vital Signs Vital Signs Date Time Temp Pulse Resp B/P (MAP) Pulse Ox O2 Delivery O2 Flow Rate FiO2 09/25/19 08:00 92 21 114/61 (78) 93 Vapotherm 40.00 100.00 09/25/19 04:00 70 09/24/19 22:24 36.2 Capillary Refill : Less Than 3 Seconds General Appearance: No Apparent Distress, Anxious, Chronically ill Respiratory: No Respiratory Distress, Rhonci Cardiovascular: Regular Rate, Rhythm, No Murmur Gastrointestinal: Normal Bowel Sounds, Soft Extremity: No Calf Tenderness, No Pedal Edema Neurologic/Psychiatric: Alert, Oriented x3; No Aphasia Results/Procedures Lab Laboratory Tests 09/24/19 13:00 09/24/19 16:53 09/25/19 03:00 Patient resulted labs reviewed. Imaging: Reviewed Imaging Films, Reviewed Imaging Report Assessment/Plan Assessment and Plan Assess & Plan/Chief Complaint Right Pleural Effusion Acute Pulmonary Emboli Mantle Cell Lymphoma Acute Hypoxic Respiratory Failure Pulm consulted, appreciate recs S/p thoracentesis- 3300 out cytology and cultures pending Continue Cefepime due to PCN allergy and Vanc On Vapotherm On Heparin gtt Thrombocytopenia- chronic Trend liver disease?- notable hepatomegaly on CT Heme/Onc consulted HTN BP well controlled, continue to hold home meds NIDDMII SSI Hold metformin due to contrast DVT ppx: Heparin gtt for PE Diagnosis/Problems Diagnosis/Problems (1) Pulmonary emboli Status: Acute Qualifiers: Pulmonary embolism type: other Chronicity: acute Acute cor pulmonale presence: without acute cor pulmonale Qualified Codes: I26.99 - Other pulmonary embolism without acute cor pulmonale (2) Malignant pleural effusion Status: Acute (3) MANTEL CELL CANCER Clinical Quality Measures DVT/VTE Risk/Contraindication: Risk Factor Score Per Nursin RFS Level Per Nursing on Admit: 4+=Very High Contraindications-Pharm: Other *list below* Other: PT ON HEPARIN GTT FOR PE SHA ORTIZ MD Sep 25, 2019 08:49 POS
--- NOTE | 2019-09-25 09:20 | NUR ---
PT ASSISTED TO BSC FOR BM WITH RETURN OF SMALL AMOUNT SOFT BROWN STOOL. PT RETURNED TO BED FOR ECHO AND DOPPLER. SATS REMAINED ABOVE 90% DURING TRANSFER. X2 ASSIST. PT WEAK AND UNSTEADY BUT DID WELL.
--- NOTE | 2019-09-25 10:09 | Diagnostic Imaging Report ---
PROCEDURE: US Venous Lower Ext Andrew. TECHNIQUE: Multiple real-time grayscale images were obtained over the lower extremities in various projections, bilaterally. Additional duplex Doppler and color Doppler images were also obtained. INDICATION: Abnormal CT scan of the chest, evaluate for deep venous thrombosis. FINDINGS: There is no intraluminal filling defect. Normal continuous flow is seen throughout the deep venous systems of both legs, and there is normal response to augmentation. The deep veins compress normally. IMPRESSION: No ultrasound evidence of deep venous thrombosis in either lower extremity. Dictated by: Dictated on workstation # [id number]
--- NOTE | 2019-09-25 13:00 | NUR ---
Pt is Jainism with large family from [place]. Group Work Program Director notified local parish for the sacrament of Anointing of the Sick. Pt currently on clear liquids, no Communion.
--- NOTE | 2019-09-25 14:18 | Occupational Therapy Eval ---
OT Evaluation-General/PLF Medical Diagnosis Admission Date Sep 24, 2019 at 15:01 Medical Diagnosis: R sided pleural effusion, Hypoxic Respiratory Failure; Lymphoma Onset Date: Sep 24, 2019 Therapy Diagnosis Therapy Diagnosis: Decreased ADL function Precautions Precautions/Isolations: Fall Prevention, Standard Precautions Weight Bear Status Weight Bearing Restriction: Weight Bearing/Tolerated Location Restriction: MYRANDA FEET Referral Physician: Rossana Patel Referral Reason: Activity Tolerance, Self Care, Evaluation/Treatment, Strengthening/ROM Medical History Pertinent Medical History: DM, HTN, Lymphoma Additional Medical History Lymphoma with chemotherapy; Gallbladder, HTN, DM Current History Per H&P: 73-year-old male with past medical history of mantle cell lymphoma who presented to the emergency department due to shortness of breath. He was scheduled to receive his second round of chemotherapy today but due to shortness of breath and overall malaise he was referred to the emergency department. He is quite sedated after receiving Ativan for CT scan and is unable to provide much history. Per report from the ER he was found to be thrombocytopenic with platelets of 89 and had a large right-sided pleural effusion. He is to being admitted to the ICU for thoracentesis. Reviewed History: Yes Social History Home: Single Level Current Living Status: Children Entry Into Home: Level Entry Steps Into Home: 0 ADL-Prior Level of Function SCALE: Activities may be completed with or without assistive devices. 5-Hvlazpglwt-pbmtrww completes the activity by him/herself with no assistance from a helper. 5-Set-up or Clean-up Assistance-helper sets up or cleans up; patient completes activity. [place] assists only prior to or following the activity. 4-Supervision or Touching Assistance-helper provides verbal cues and/or touching/steadying and/or contact guard assistance as patient completes activity. Assistance may be provided throughout the activity or intermittently. 3-Partial/Moderate Assistance-helper does LESS THAN HALF the effort. [place] lifts, holds or supports trunk or limbs, but provides less than half the effort. 2-Substantial/Maximal Assistance-helper does MORE THAN HALF the effort. [place] lifts or holds trunk or limbs and provides more than half the effort. 5-Idgxsiuyr-zgyaem does ALL the effort. Patient does none of the effort to complete the activity. Or, the assistance of 2 or more helpers is required for the patient to complete the activity. If activity was not attempted, code reason: 7-Patient Refused. 9-Not Applicable-not attempted and the patient did not perform the activity before the current illness, exacerbation or injury. 10-Not Attempted due to Environmental Limitations-(lack of equipment, weather restraints, etc.). 88-Not Attempted due to Medical Conditions or Safety Concerns. ADL PLOF Comments Pt states he was able to complete all ADL tasks IND. Pt's daughter states she "helps a lot"- completes socks/ shoes and all IADL tasks. Pt able to complete showering, toileting, and dressing tasks (other than feet) IND. Self Care: Needed Some Help Functional Cognition: Independent DME/Equipment: Tub/Shower Occupation: retired Drive Self: No OT Current Status Subjective Pt seen in bed, states he is "doing fine, so what's wrong." Pt states pain in L shoulder, does not rate. Pt agreeable to OT evaluation; 2 sisters and 3 daughters present through session. Mental Status/Objective Patient Orientation: Person, Place, Situation Attachments: Tomas Catheter, IV, Oxygen Current Glasses/Contacts: Yes Hearing Aids: No Hand Dominance: Right Upper Extremity ROM R WFL L impaired shoulder movements Upper Extremity Coordination WFL BUE Upper Extremity Sensation WFL no c/o paresthesias Upper Extremity Strength Impaired BUE ADL-Treatment Eating (QC): 7 Oral Hygiene (QC): 7 Shower/Bathe Self (QC): 2 (Per clinical judgement ) Upper Body Dressing (QC): 2 (Per clinical judgement ) Lower Body Dressing (QC): 2 (Per clinical judgement ) On/Off Footwear (QC): 1 (Per daughter report- daughter completes at home. ) Toileting Hygiene (QC): 2 (Per clinical judgement and nursing report ) Toilet Transfer (QC): 3 (Per nursing report sit to stand with min A to commode.) Other Treatments Daughters and sisters present through session. Pt seen reclined in bed, states no pain but with increased questioning states pain in L shoulder. Pt's daughters state he was to receive Cortisone shot in LUE today for pain, nursing notified and nursing educates pt of process within ICU. During hx, pt's family members correct pt's statements intermittently. Pt's passed ~4 mo prior and pt now living at home with daughter. Pt completes BUE movements, L shoulder flexed to ~30* scaption, pt grimaces and describes as sharp/ throbbing in anterior shoulder. Pt completes AROM of R UE, able to reach jade area and top of head. Pt denies out of bed activities or other ADLs. Pt states he would like to go outside, pt's bed adjusted for easier viewing of outside. Pt and family members educated of OT role and ICU OT process. Pt left in bed, all needs met, call light within reach. Education OT Patient Education: Correct positioning, Instructions to caregiver, Modified ADL techniques, Purpose of tx/functional activities, Rehab process, Safety issues Teaching Recipient: Patient, Family Teaching Methods: Demonstration, Discussion Response to Teaching: Verbalize Understanding, Return Demonstration OT Shelter Goals Shelter Goals Time Frame: Oct 02, 2019 Eating (QC): 6 Oral Hygiene (QC): 6 Toileting Hygiene (QC): 4 Shower/Bathe Self (QC): 3 Upper Body Dressing (QC): 4 Lower Body Dressing (QC): 4 On/Off Footwear (QC): 2 Additional Goals: 1-Demonstrate ADL Tasks, 2-Verbalize Understanding, 3-Impro veStrength/Kaylyn 1=Demonstrate adherence to instructed precautions during ADL tasks. 2=Patient will verbalize/demonstrate understanding of assistive devices/modifications for ADL. 3=Patient will improve strength/tolerance for activity to enable patient to perform ADL's. OT Education/Plan Problem List/Assessment Assessment: Decreased Activ Tolerance, Decreased UE Strength, Dependent Transfers, Impaired Funct Balance, Impaired I ADL's, Impaired Self-Care Skills Discharge Recommendations Plan/Recommendations: Continue POC Therapy Discharge Recommendati: Scheduled Assistance Equpiment Recommendations-D/C: Extended Bath Bench, Rails on Tub/Shower Patient/Family Goals "Return home" "decrease pain" Treatment Plan/Plan of Care Treatment,Training & Education: Yes Patient would benefit from OT for education, treatment and training to promote i ndependence in ADL's, mobility, safety and/or upper extremity function for ADL's. Plan of Care: ADL Retraining, Caregiver Training, Concurrent Therapy, Functional Mobility, UE Funct Exercise/Act Treatment Duration: Oct 02, 2019 Frequency: 5 times per week Estimated Hrs Per Day: .25 hour per day Agreement: Yes Rehab Potential: Fair Time/GCodes Start Time: 13:53 Stop Time: 14:08 Total Time Billed (hr/min): 15 Billed Treatment Time 1, EVM (15) ALONSO IQBAL OTR Sep 25, 2019 14:18 POS
[2019-09-25] MEDS ORDERED: ALPR0.254 PO (14:24)
[2019-09-25] MEDS ORDERED: SUCR1TAB PO (14:24)
[2019-09-25] MEDS ORDERED: SENN-141 PO (14:24)
--- NOTE | 2019-09-25 15:15 | Physical Therapy Evaluation ---
PT Evaluation-General Medical Diagnosis Admission Date Sep 24, 2019 at 15:01 Medical Diagnosis: R sided pleural effusion, Hypoxic Respiratory Failure; Lymphoma Onset Date: Sep 24, 2019 Therapy Diagnosis Therapy Diagnosis: weakness, debility Precautions Precautions/Isolations: Fall Prevention, Standard Precautions Weight Bear Status Right Lower Extremity: Right Weight Bearing/Tolerated Left Lower Extremity: Left Weight Bearing/Tolerated Referral Physician: Rossana Patel Reason for Referral: Evaluation/Treatment Medical History Pertinent Medical History: DM, HTN, Lymphoma Reviewed History: Yes Social History Home: Single Level Current Living Status: Children Entry Into Home: Level Entry PT Steps Into Home: 0 Prior Prior Level of Function SCALE: Activities may be completed with or without assistive devices. 0-Mmjffmloeb-egxyuql completes the activity by him/herself with no assistance from a helper. 5-Set-up or Clean-up Assistance-helper sets up or cleans up; patient completes activity. [place] assists only prior to or following the activity. 4-Supervision or Touching Assistance-helper provides verbal cues and/or touching/steadying and/or contact guard assistance as patient completes activity. Assistance may be provided throughout the activity or intermittently. 3-Partial/Moderate Assistance-helper does LESS THAN HALF the effort. [place] lifts, holds or supports trunk or limbs, but provides less than half the effort. 2-Substantial/Maximal Assistance-helper does MORE THAN HALF the effort. [place] lifts or holds trunk or limbs and provides more than half the effort. 8-Ahhpfvbqn-xvanlj does ALL the effort. Patient does none of the effort to complete the activity. Or, the assistance of 2 or more helpers is required for the patient to complete the activity. If activity was not attempted, code reason: 7-Patient Refused. 9-Not Applicable-not attempted and the patient did not perform the activity before the current illness, exacerbation or injury. 10-Not Attempted due to Environmental Limitations-(lack of equipment, weather restraints, etc.). 88-Not Attempted due to Medical Conditions or Safety Concerns. Bed Mobility: 6 Transfers (B,C,W/C): 4 Gait: 4 Prior Devices Use: Walker PT Evaluation-Current Subjective Patient agrees to PT to transfer to chair. Daughters present in room initially and make PT aware of recent L shoulder injury. Patient reports he lives with a daughter and she assists with ADLs. Pain Numeric Pain Scale: 0-No Pain Location: No Pain Reported Objective Patient Orientation: Normal For Age Attachments: Oxygen (vapotherm), Tomas Catheter, IV ROM/Strength ROM Lower Extremities WFL Strength Lower Extremities Grossly 3/5 Integumentary/Posture Integumentary See nursing notes Bladder Incontinence: Tomas Cath Posture WFL; limited ability to WB on L shoulder Neuromuscular (Tone, Coordination, Reflexes) Grossly intact Sensory Vision: Functional Hearing: Functional Hand Dominance: Right Transfers Roll Left to Right (QC): 3 Sit to Lying (QC): 3 Lying to Sitting/Side of Bed(Q: 3 Sit to Stand (QC): 3 Chair/Jua-oe-Siopd Xfer(QC): 3 Car Transfer (QC): 10 Gait Does the Patient Walk?: Yes Mode of Locomotion: Walk Anticipated Mode of Locomotion: Walk Walk 10 feet (QC): 88 Walk 50 ft with 2 Turns(QC): 88 Walk 150 ft (QC): 88 Walking 10ft/uneven surface-QC: 88 Gait Assistive Device: FWW Wheelchair Training Does the Pt Use a Wheelchair?: No Wheel 50 ft with 2 turns (QC): 9 Wheel 150 ft (QC): 9 Type of Wheelchair: Manual Stairs 1 Step (curb) (QC): 88 4 Steps (QC): 88 12 Steps (QC): 88 Balance Sitting Static: Fair Sitting Dynamic: Fair Standing Static: Fair Standing Dynamic: Fair Picking up an Object (QC): 88 Assessment/Needs Patient required min-mod assistance with bed mobility d/t limited ability to bear weight on L shoulder, also causing difficulty with maintaining sitting balance. Patient able to stand with Poonam from EOB with FWW and transfer to chair. Patient unable to ambulate at this time d/t vapotherm. Patient seated in recliner with legs elevated at conclusion of treatment. Rehab Potential: Fair PT Jail Goals Jail Goals PT Jail Goals Time Frame: Oct 03, 2019 Roll Left & Right (QC): 6 Sit to Lying (QC): 6 Lying-Sitting on Side/Bed(QC): 6 Sit to Stand (QC): 4 Chair/Fkp-gc-Ntohp Xfer(QC): 4 Toilet Transfer (QC): 4 Car Transfer (QC): 4 Does the Patient Walk: Yes Walk 10 feet (QC): 4 Walk 50ft with 2 Turns (QC): 4 Walk 150 ft (QC): 4 Walking 10ft on Uneven Surface: 4 1 Step (curb) (QC): 4 4 Steps (QC): 9 12 Steps (QC): 9 Picking up an Object (QC): 9 Does the Pt use WC or Scooter?: No Type: N/A Type: N/A PT Plan Problem List Problem List: Activity Tolerance, Functional Strength, Safety, Balance, Gait, Transfer, Bed Mobility Treatment/Plan Treatment Plan: Continue Plan of Care Treatment Plan: Bed Mobility, Education, Functional Activity Kaylyn, Functional Strength, Gait, Safety, Therapeutic Exercise, Transfers Treatment Duration: Oct 03, 2019 Frequency: 6 times per week Estimated Hrs Per Day: .25 hour per day Patient and/or Family Agrees t: Yes Time/GCodes Time In: 1436 Time Out: 1450 Total Billed Treatment Time: 14 Total Billed Treatment 1 visit EVModC 14min CHRIS GONZALES PT Sep 25, 2019 15:15 POS
--- NOTE | 2019-09-25 15:56 | NUR ---
PT ASSISTED BACK TO BED AFTER SITTING UP IN CHAIR FOR APPROX 1 HR. WAS WEAK AND UNSTEADY ON FEET. SATS REMAINED ABOVE 90 ON TRANSFER. PT REPOSITIONED TO RIGHT SIDE. HE TELLS THIS RN THAT HE WAS TOLD NOT TO LAY ON HIS LEFT SIDE SECONDARY TO HIS PORT. HE IS NOW RESTING WITH HIS EYES CLOSED IN NAD.
[2019-09-25] MEDS: HEParin DRIP 25000 UNIT/500ML 500 ML IV SCH (17:43)
--- NOTE | 2019-09-25 18:27 | CONSULTATION REPORT ---
DATE OF SERVICE: 09/25/2019 The patient is admitted to ICU bed 10. IMPRESSION: A 73-year-old male admitted to the hospital with: 1. Increasing shortness of breath. 2. CT scan of the chest done prior to admission showed large right pleural effusion as well as left pulmonary embolism. 3. Status post diagnostic and therapeutic right thoracentesis and on anticoagulation with heparin. 4. Recent diagnosis of mantle cell lymphoma with bulky disease in the chest and abdomen. 5. Status post chemotherapy with Treanda and Rituxan x1. 6. Abdominal as well as lower extremity edema. RECOMMENDATIONS: 1. Agree with diagnostic and therapeutic thoracentesis and we will await cytology report. 2. Agree with anticoagulation. Once the patient is stable, may switch to newer oral anticoagulants. 3. The patient may need a bronchoscopy because of significant right bronchial narrowing/obstruction. 4. We will delay second cycle of chemotherapy for mantle cell lymphoma while workup is undergoing. 5. I will follow the patient with you. BRIEF HISTORY: The patient is a 73-year-old male, who was diagnosed with mantle cell lymphoma in late 07/2019. He started having worsening right ear problems a few months prior to that. He was treated with antibiotics and steroids with no benefit. He was evaluated by Dr. Apodaca and an endoscopic evaluation showed a right nasopharyngeal mass. Biopsy was done, which turned out to be a mantle cell lymphoma. Staging studies showed bulky mediastinal and hilar lymphadenopathy, abdominal lymphadenopathy as well as splenomegaly. Features were that of a low grade mantle cell lymphoma and he was started on treatment with bendamustine and Rituxan regimen 4 weeks ago. At the time of treatment, he had leukocytosis and lymphocytosis. [facility] to begin the second cycle of chemotherapy. The patient complained of significant shortness of breath and bilateral lower extremity edema. Because of this, he was redirected to the emergency room for further evaluation with a diagnosis of the right pleural effusion as well as pulmonary embolism. PAST MEDICAL HISTORY: Significant for diagnosis of mantle cell lymphoma in late July as mentioned above. History of hypertension for 14 years and on treatment. Diabetes mellitus type 2 for 14 years and is on treatment with oral agents. Questionable history of [place] 25 years ago. Nephrolithiasis about 15 years ago. SURGERIES: Include cholecystectomy in 1991, bilateral rotator cuff surgery in 2001 and 2004, lumbar diskectomy in 1983 and laminectomy in 2013. Bone spurs removed from bilateral feet in 1991, bilateral ear tube placement and biopsy of nasopharyngeal mass in late 07/2019. SOCIAL HISTORY: The patient is and lives in [place], [place]. A daughter lives with him. He has a son and 4 daughters. His son lives in [place], [place] and a daughter in [place]. The remaining daughters live in [place]. He has 17 grandchildren and 19 great grandchildren. 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 He has smoked one pack of cigarettes a day for 60 years. He used alcohol socially, but denied any recreational drug use. FAMILY HISTORY: Significant for his brother, who was diagnosed with testicular cancer at the age of 25 years. Sister was diagnosed with breast cancer at the age of 50 years. Another sister diagnosed with stomach cancer at 65 years and a third sister was diagnosed with bladder cancer at the age of 71 years. No other malignancies in the family that the patient knows of. PHYSICAL EXAMINATION: GENERAL: Today, showed an elderly male, moderately obese, awake and oriented, does not appear in any acute distress. VITAL SIGNS: Temperature was 36.5 degrees centigrade. Pulse rate of 87, respirations 13, blood pressure 122/79 with oxygen saturation of 96% on 40% oxygen via Vapotherm. HEENT: Normocephalic, extraocular muscles intact, conjunctivae pink, oral mucosa moist. NECK: Supple, with no JVD. No cervical, supraclavicular or axillary lymphadenopathy palpable. CHEST: Symmetrical. LUNGS: With diminished breath sounds in the right base. Rest of the lung campbell are fairly clear without wheezes or rales. CARDIOVASCULAR: Regular in rate and rhythm. No murmurs or gallops heard. ABDOMEN: Obese, soft, nontender with no hepatosplenomegaly palpable. EXTREMITIES: Showed 2+ edema of bilateral lower extremities. No calf muscle tenderness. NEUROLOGIC: Showed no focal motor deficits. LABORATORY DATA: CBC done today showed WBC 16.9, hemoglobin 16.1, platelet count 78,000 with neutrophil count 10.5, lymphocyte count 5.0 and monocyte count 1.1. CBC done yesterday had shown WBC 7.7, hemoglobin 16.4 and platelet count of 72,000. CMP done yesterday showed normal electrolytes. BUN was 17 and creatinine 0.85 with GFR more than 60 mL per minute. Nonfasting glucose was 126. Corrected calcium was 8.7. Uric acid was above normal at 7.3. Serum magnesium was 1.5. Liver function studies are normal except albumin level of 3.1 and alkaline phosphatase of 205. CT angiogram done at the emergency room yesterday showed segmental pulmonary embolism in the superior lingular branch of left upper lobe. Large right pleural effusion with pleural enhancement and complete collapse of right lung. Mediastinal shift to the left. Increase in extensive mediastinal and retroperitoneal mesenteric lymphadenopathy. Hepatosplenomegaly. Thank you for allowing me to participate in this patient's care. I will follow the patient with you and make appropriate recommendations. Job ID: [id number] DocumentID: [id number] Dictated Date: 09/25/2019 17:43:43 Treating Machine Operator Date: 09/25/2019 18:26:49 Dictated By: HALLIE TODD MD
--- NOTE | 2019-09-25 19:13 | NUR ---
RECEIVED REPORT FROM CP ACCOUNTING MANAGER CPA THERAPIST NOTIFIED DR GREGORY ISSUES WITH FAMILY BREAKING MASK SEAL AND LEAVING OFF WHILE PT DESATS TO GIVE PT DRINKS.REPORTED DAY THERAPIST ASKE DR GREGORY TO SPEAK WITH FAMILY CP ACCOUNTING MANAGER CPA STATES RECEIVED ORDERS TO PLACE PT ON VAPOTHERM. ORDERS CHECKED BOTH VAPOTHERM AND BIPAP 19/06 RR 14 ACTIVE
[2019-09-26] VITALS (16 sets, daily range): BP systolic 85–134; BP diastolic 51–90
[2019-09-26] MEDS: LACTATED RINGERS 1,000 ML IV SCH ×2 (00:29→13:49)
[2019-09-26] MEDS: GABAPENTIN 600 MG (NEURONTIN) TAB PO SCH ×3 (00:29→20:08)
[2019-09-26] MEDS: CEFEPIME INJECTION 1,000 MG in WATER (STERILE) FOR INJECTION 10 ML IV SCH ×5 (00:29→23:41)
[2019-09-26] MEDS: inSUlin ASPART (NovoLOG) 1 UNIT/0.01 ML (CHARGE PER UNIT) SC SCH ×4 (01:27→20:09)
[2019-09-26] MEDS: RT-ALBUTEROL/IPRATROPIUM 3 ML (DUONEB) VIAL INH SCH ×6 (01:43→22:36)
[2019-09-26 03:17] LABS: BASOPHILS # (AUTO) 0.1 10^3/uL (0.0-0.1); BASOPHILS % (AUTO) 1 % (0-10); EOSINOPHILS # (AUTO) 0.1 10^3/uL (0.0-0.3); EOSINOPHILS % (AUTO) 1 % (0-10); HEMATOCRIT 45 % (40-54); HEMOGLOBIN 15.1 G/DL (13.3-17.7); LYMPHOCYTES # (AUTO) 3.7 X 10^3 (1.0-4.0); LYMPHOCYTES % (AUTO) 38 % (12-44); MEAN CORPUSCULAR HEMOGLOBIN 34 PG (25-34); MEAN CORPUSCULAR HGB CONC 34 G/DL (32-36); MEAN CORPUSCULAR VOLUME 100 FL (80-99); MEAN PLATELET VOLUME 12.8 FL (7.4-10.4); MONOCYTES # (AUTO) 0.9 X 10^3 (0.0-1.0); MONOCYTES % (AUTO) 9 % (0-12); NEUTROPHILS # (AUTO) 4.9 X 10^3 (1.8-7.8); NEUTROPHILS % (AUTO) 51 % (42-75); PLATELET COUNT 72 10^3/uL (130-400); RED CELL DISTRIBUTION WIDTH 15.1 % (10.0-14.5); WHITE BLOOD COUNT 9.7 10^3/uL (4.3-11.0)
[2019-09-26 03:23] LABS: ABG BASE EXCESS 5.6 MMOL/L (-2.5-2.5); ABG OXYGEN SATURATION 94 % (94-100); ABG PCO2 45 MMHG (35-45); ABG PH 7.43 (7.37-7.43); ABG PO2 69 MMHG (79-93); ABG TCO2 31.3 MMOL/L (21.0-31.0)
[2019-09-26 03:26] LABS: ALLENS TEST POSITIVE; INSPIRED O2 50% BIPAP; PATIENT TEMP 36.4; VENTILATOR NO
[2019-09-26 03:35] LABS: BUN/CREATININE RATIO 24; CALCIUM 7.4 MG/DL (8.5-10.1); CARBON DIOXIDE 26 MMOL/L (21-32); CHLORIDE 103 MMOL/L (98-107); CREATININE SERUM 0.74 MG/DL (0.60-1.30); GFR ESTIMATED > 60; GLUCOSE 102 MG/DL (70-105); MAGNESIUM 1.7 MG/DL (1.6-2.4); PHOSPHORUS 3.2 MG/DL (2.3-4.7); POTASSIUM 4.6 MMOL/L (3.6-5.0); SODIUM 140 MMOL/L (135-145)
--- NOTE | 2019-09-26 03:41 | Pulmonary Progress Note ---
RAMOS RIOS MED STUDENT 09/26/19 0341: Sepsis Event Evaluation Height, Weight, BMI Height: '" Weight: lbs. oz. kg; 25.38 BMI Method: Focused Exam Lactate Level 09/25/19 06:58: Lactic Acid Level 1.56 Exam Exam Vital Signs Date Time Temp Pulse Resp B/P (MAP) Pulse Ox O2 Delivery O2 Flow Rate FiO2 09/26/19 03:00 86 13 120/64 (82) 100 Vapotherm 40.00 50.00 09/26/19 02:00 90 15 100/66 (77) 100 Vapotherm 40.00 50.00 09/26/19 01:47 89 14 100 Vapotherm 40.00 50.00 09/26/19 01:43 88 20 100 60.00 09/26/19 01:20 89 15 100 Vapotherm 40.00 60.00 09/26/19 01:00 87 09/26/19 01:00 87 17 124/64 (84) 100 Vapotherm 40.00 70.00 09/26/19 00:00 88 16 105/62 (76) 100 Vapotherm 40.00 70.00 09/25/19 23:00 89 13 100/55 (70) 100 Vapotherm 40.00 70.00 09/25/19 22:33 86 11 90 Vapotherm 40.00 70.00 09/25/19 22:21 89 Vapotherm 40.00 60 09/25/19 22:00 82 12 102/59 (73) 90 Vapotherm 40.00 60.00 09/25/19 21:00 87 9 125/67 (86) 94 Vapotherm 40.00 60.00 09/25/19 20:00 35.9 09/25/19 20:00 84 13 119/68 (85) 93 Vapotherm 40.00 60.00 09/25/19 20:00 Vapotherm 40.00 60 09/25/19 19:14 92 Vapotherm 40.00 60 09/25/19 19:00 84 09/25/19 19:00 84 12 98/60 (73) 92 Vapotherm 40.00 60.00 09/25/19 18:00 90 26 108/56 (73) 93 Vapotherm 40.00 70.00 11/21/19 17:00 87 13 122/79 (93) 96 Vapotherm 40.00 70.00 09/25/19 16:00 36.5 09/25/19 16:00 85 13 114/72 (86) 94 Vapotherm 40.00 70.00 09/25/19 16:00 Vapotherm 40.00 60 09/25/19 15:00 85 13 130/67 (88) 94 Vapotherm 40.00 70.00 09/25/19 14:35 91 Vapotherm 40.00 60 09/25/19 14:00 90 19 116/63 (80) 90 Vapotherm 40.00 70.00 09/25/19 13:00 90 91 Vapotherm 40.00 70.00 09/25/19 12:30 Vapotherm 40.00 60 09/25/19 12:24 86 09/25/19 12:00 36.8 09/25/19 12:00 84 12 102/58 (73) 93 Vapotherm 40.00 70.00 09/25/19 11:30 94 Vapotherm 40.00 70 09/25/19 11:00 89 12 114/66 (82) 95 Vapotherm 40.00 70.00 09/25/19 10:49 Vapotherm 40.00 70.00 09/25/19 10:00 86 14 93/59 (70) 97 Vapotherm 40.00 80.00 09/25/19 09:52 Vapotherm 40.00 80.00 09/25/19 09:00 93 13 90/45 (60) 98 Vapotherm 40.00 100.00 09/25/19 08:00 92 21 114/61 (78) 93 Vapotherm 40.00 100.00 09/25/19 07:45 Vapotherm 40.00 100 09/25/19 07:00 91 09/25/19 07:00 93 19 112/60 (77) 93 Vapotherm 40.00 100.00 09/25/19 06:52 Vapotherm 40.00 100.00 09/25/19 06:24 NIV Bilevel 60.00 09/25/19 06:19 90 15 95 70.00 09/25/19 06:00 93 17 107/54 (71) 97 NIV Bilevel 70.00 09/25/19 05:00 94 17 91/61 (71) 95 NIV Bilevel 70.00 09/25/19 04:00 NIV Bilevel 70 09/25/19 04:00 98 22 92 NIV Bilevel 70.00 I & O 09/26/19 07:00 Intake Total 2570 ml Output Total 400 ml Balance 2170 ml Height & Weight Height: '" Weight: lbs. oz. kg; 25.38 BMI Method: General Appearance: No Apparent Distress, Anxious, Chronically ill Respiratory: No Respiratory Distress, Rhonci Cardiovascular: Regular Rate, Rhythm, No Murmur Capillary Refill: Less Than 3 Seconds Gastrointestinal: normal bowel sounds, non tender, soft Extremity: No Calf Tenderness, No Pedal Edema Neurologic/Psychiatric: Alert, Oriented x3; No Aphasia Skin: Normal Color, Warm/Dry Results Lab Laboratory Tests 09/24/19 13:00 09/24/19 16:53 09/25/19 03:00 09/26/19 03:[address] 09/25/19 IMPRESSION: Marked reduction in right pleural fluid since previous study. Extensive interstitial and alveolar densities in the right lung may be due to reexpansion pneumonitis or edema. In addition, there appears to be dominant mass in the central right lung extending into the hilum and mediastinum. This is associated with upper abdominal adenopathy. This could represent primary neoplasm of the lung although other considerations such as lymphoma could have this appearance. Correlation with possible pleural fluid analysis or bronchoscopy would be of use. Consideration could be given to CT-guided biopsy. Lower Extremity Doppler 09/25/19 IMPRESSION: No ultrasound evidence of deep venous thrombosis in either lower extremity. 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 -Monitor coag studies -LE Doppler without evidence of DVT Hypotension -Monitor close -Pt will be higher risk for TPA Thrombocytopenia -Monitor right lung opacification secondary to large right pleural effusion -dominant mass in right central lung extending into hilum and mediastinum with associated upper abdominal adenopathy. Imaging suggestive of lymphoma Hx of mantle cell lymphoma -Dr. Rhodes following -port placed 08/21/19 -Has had one round of chemo with Treanda and Rituxan ALLEN GREGORY DO 09/26/19 0657: Subjective Time Seen by a Provider: 07:07 Subjective/Events-last exam Pt appears to be doing better. Still requiring high flow oxygen currently on BiPAP. Will switch to Vapotherm. 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 -Monitor coag studies -LE Doppler without evidence of DVT Hypotension -Monitor close Thrombocytopenia -Monitor right lung opacification secondary to large right pleural effusion -dominant mass in right central lung extending into hilum and mediastinum with associated upper abdominal adenopathy. Imaging suggestive of lymphoma Hx of mantle cell lymphoma -Dr. Rhodes following -port placed 08/21/19 -Has had one round of chemo with Treanda and RituxaRAMOS Levi STUDENT Sep 26, 2019 03:41 ALLEN LIVE DO Sep 26, 2019 06:57 POS
[2019-09-26] MEDS: MAGNESIUM 1 GM/100 ML IVPB 100 ML IV SCH ×4 (03:53→07:00)
[2019-09-26] MEDS: POTASSIUM CL 10MEQ/50ML IVPB 50 ML IV SCH (03:53)
[2019-09-26] MEDS: KCL 20 MEQ TAB (K-DUR) PO SCH (03:53)
--- NOTE | 2019-09-26 07:03 | Diagnostic Imaging Report ---
INDICATION: Shortness of breath. Portable chest 3:06 AM Left subclavian Port-A-Cath tip projects over the SVC. There is diffuse infiltrate in the right lung. Left lung is clear. IMPRESSION: Diffuse pulmonary infiltrate right lung unchanged from previously. Dictated by: Dictated on workstation # [id number]
[2019-09-26] MEDS: PANTOPRAZOLE 40 MG (PROTONIX) VIAL IV SCH (08:24)
[2019-09-26] MEDS: morphine INJ 10 MG/ML 1ML (SYR OR VIAL) IVP PRN (10:35)
--- NOTE | 2019-09-26 11:09 | Progress Note ---
Standard Progress Note Progress Notes/Assess & Plan Date Seen by a Provider: Sep 26, 2019 Time Seen by a Provider: 10:52 Progress/Assessment & Plan 73-year-old male with the recent diagnosis of mantle cell lymphoma with extensive disease in the mediastinum and abdomen as well as the hepatosplen omegaly diagnosed from biopsy of the nasopharyngeal mass. He completed the 1 cycle of chemotherapy with bendamustine and Rituxan 4 weeks ago. Came in for reevaluation but extremely short of breath and with bilateral lower extremity edema. CT angiogram with the right lung white out as well as left the sided pulmonary embolism. Status post right-sided diagnostic and therapeutic t horacentesis with removal of 3.3 L of fluid with cytology pending. Currently on anticoagulation with heparin. Postthoracentesis CT scan showed a slight increase in lymphadenopathy as well as the compression of the bronchi to all 3 lobes of right lung. Discussed with Dr. Acosta who will probably do a bronchoscopy tomorrow to rule out endobronchial lesions. If this is extrinsic c ompression from worsening lymphadenopathy due to lymphoma, patient would need more aggressive chemotherapy with hyper CVAT or high-dose methotrexate for which he will need referred to [facility]. Continue heparin until after bronchoscopy and roberto to oral anticoagulation. Once oxygen requirement and oxygenation better, we will consider discharge home. Dr. Rees regional cra for this weekend. Focused Exam Lactate Level 09/25/19 06:58: Lactic Acid Level 1.56 HALLIE TODD Sep 26, 2019 11:09 POS
[2019-09-26] MEDS ORDERED: NS IV 1000 ML 1,000 ML ONE (11:39)
--- NOTE | 2019-09-26 11:57 | Physical Therapy Daily Note ---
PT Daily Note-Current Subjective Patient agrees to PT at this time to transfer to chair. Patient states he is feeling good, daughters state he recently had morphine. Pain Numeric Pain Scale: 0-No Pain Location: No Pain Reported Mental Status Patient Orientation: Normal For Age Attachments: SCD's, Oxygen (vapotherm), Tomas Catheter, IV Transfers SCALE: Activities may be completed with or without assistive devices. 4-Ogeroydqwk-uoeynpi completes the activity by him/herself with no assistance from a helper. 5-Set-up or Clean-up Assistance-helper sets up or cleans up; patient completes activity. [place] assists only prior to or following the activity. 4-Supervision or Touching Assistance-helper provides verbal cues and/or touching/steadying and/or contact guard assistance as patient completes activity. Assistance may be provided throughout the activity or intermittently. 3-Partial/Moderate Assistance-helper does LESS THAN HALF the effort. [place] lifts, holds or supports trunk or limbs, but provides less than half the effort. 2-Substantial/Maximal Assistance-helper does MORE THAN HALF the effort. [place] lifts or holds trunk or limbs and provides more than half the effort. 7-Szikapavb-wzttrv does ALL the effort. Patient does none of the effort to complete the activity. Or, the assistance of 2 or more helpers is required for the patient to complete the activity. If activity was not attempted, code reason: 7-Patient Refused. 9-Not Applicable-not attempted and the patient did not perform the activity before the current illness, exacerbation or injury. 10-Not Attempted due to Environmental Limitations-(lack of equipment, weather restraints, etc.). 88-Not Attempted due to Medical Conditions or Safety Concerns. Roll Left & Right (QC): 3 Lying to Sitting/Side of Bed(Q: 3 Sit to Stand (QC): 3 Chair/Zuk-vo-Zaalb Xfer(QC): 3 Weight Bearing Right Lower Extremity: Right Weight Bearing/Tolerated Left Lower Extremity: Left Weight Bearing/Tolerated Assessment Patient required assistance for bed mobility to sit to EOB d/t L shoulder injur y/weakness. Patient able to move LEs to EOB but need help to sit up upper body from supine and scoot to EOB. Patient required [place] to stand from EOB with FWW and transfer to chair. Patient seated in chair with legs down at conclusion of treatment. PT Sales Consultant Goals Sales Consultant Goals PT Residential Goals Time Frame: Oct 03, 2019 Roll Left & Right (QC): 6 Sit to Lying (QC): 6 Lying-Sitting on Side/Bed(QC): 6 Sit to Stand (QC): 4 Chair/Eki-ni-Wghat Xfer(QC): 4 Toilet Transfer (QC): 4 Car Transfer (QC): 4 Does the Patient Walk: Yes Walk 10 feet (QC): 4 Walk 50ft with 2 Turns (QC): 4 Walk 150 ft (QC): 4 Walking 10ft on Uneven Surface: 4 1 Step (curb) (QC): 4 4 Steps (QC): 9 12 Steps (QC): 9 Picking up an Object (QC): 9 Does the Pt use WC or Scooter?: No Type: N/A Type: N/A PT Plan Treatment/Plan Treatment Plan: Continue Plan of Care Treatment Plan: Bed Mobility, Education, Functional Activity Kaylyn, Functional Strength, Gait, Safety, Therapeutic Exercise, Transfers Treatment Duration: Oct 03, 2019 Frequency: 6 times per week Estimated Hrs Per Day: .25 hour per day Patient and/or Family Agrees t: Yes Time/GCodes Time In: 1122 Time Out: 1135 Total Billed Treatment Time: 13 Total Billed Treatment 1 visit FA 13min CHRIS GONZALES PT Sep 26, 2019 11:57 POS
--- NOTE | 2019-09-26 12:46 | NUR ---
Pt states that a supply chain generalist was in to see him yesterday as called for anointing. As possum trapper offered Communion pt stated he was expecting Father again.
--- NOTE | 2019-09-26 13:31 | Progress Note - Hospitalist ---
Subjective HPI/CC On Admission Date Seen by Provider: Sep 26, 2019 Time Seen by Provider: 07:45 Patient is a 73-year-old male with past medical history of mantle cell lymphoma who presented to the emergency department due to shortness of breath. He was scheduled to receive his second round of chemotherapy today but due to shortness of breath and overall malaise he was referred to the emergency department. He is quite sedated after receiving Ativan for CT scan and is unable to provide much history. Per report from the ER he was found to be thrombocytopenic with platelets of 89 and had a large right-sided pleural e ffusion. He is to being admitted to the ICU for thoracentesis. Subjective/Events-last exam Pt reports feeling better than presentation but the same as yesterday. Breathing ok. On 40lpm and baseline is 2lpm. Focused Exam Lactate Level 09/25/19 06:58: Lactic Acid Level 1.56 Objective Exam Vital Signs Vital Signs Date Time Temp Pulse Resp B/P (MAP) Pulse Ox O2 Delivery O2 Flow Rate FiO2 09/26/19 12:58 Vapotherm 10.00 21.00 09/26/19 12:45 98 09/26/19 12:00 16 85/52 (63) 100 09/26/19 12:00 21 09/26/19 08:00 36.8 Capillary Refill : Less Than 3 Seconds General Appearance: No Apparent Distress, Chronically ill Respiratory: No Accessory Muscle Use, Decreased Breath Sounds Cardiovascular: Regular Rate, Rhythm, No Murmur Gastrointestinal: Normal Bowel Sounds, Non Tender Extremity: No Calf Tenderness, No Pedal Edema Neurologic/Psychiatric: Alert, Oriented x3, Normal Mood/Affect Results/Procedures Lab Laboratory Tests 09/26/19 03:08 Patient resulted labs reviewed. Imaging: Reviewed Imaging Films, Reviewed Imaging Report Assessment/Plan Assessment and Plan Assess & Plan/Chief Complaint Right Pleural Effusion- chylothorax Acute Pulmonary Emboli Mantle Cell Lymphoma Acute Hypoxic Respiratory Failure Pulm consulted, appreciate recs low fat diet ordered S/p thoracentesis- on day of admission Continue Cefepime due to PCN allergy and Vanc On Vapotherm On Heparin gtt plan for bronch tomorrow Thrombocytopenia- chronic Trend liver disease?- notable hepatomegaly on CT Heme/Onc consulted HTN BP well controlled, continue to hold home meds NIDDMII SSI Hold metformin due to contrast DVT ppx: Heparin gtt for PE Diagnosis/Problems Diagnosis/Problems (1) Pulmonary emboli Status: Acute Qualifiers: Pulmonary embolism type: other Chronicity: acute Acute cor pulmonale presence: without acute cor pulmonale Qualified Codes: I26.99 - Other pulmonary embolism without acute cor pulmonale (2) MANTEL CELL CANCER Status: Chronic (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
--- NOTE | 2019-09-26 14:00 | Occupational Ther Daily Note ---
OT Current Status-Daily Note Subjective Pt seen in recliner chair, nurse and daughter (sleeping) present. Pt denies current pain, upon further questioning states shoulder still hurting but does not give rating. Pt agreeable to OT tx session. Mental Status/Objective Patient Orientation: Person, Situation, Normal For Age Attachments: IV, Oxygen ADL-Treatment Therapy Code Descriptions/Definitions Functional [place] Measure: 0=Not Assessed/NA 4=Minimal Assistance 1=Total Assistance 5=Supervision or Setup 2=Maximal Assistance 6=Modified [place] 3=Moderate Assistance 7=Complete IndependenceSCALE: Activities may be completed with or without assistive devices. 1-Qjtcoxjzdt-oeikppl completes the activity by him/herself with no assistance from a helper. 5-Set-up or Clean-up Assistance-helper sets up or cleans up; patient completes activity. [place] assists only prior to or following the activity. 4-Supervision or Touching Assistance-helper provides verbal cues and/or touching/steadying and/or contact guard assistance as patient completes activity. Assistance may be provided throughout the activity or intermittently. 3-Partial/Moderate Assistance-helper does LESS THAN HALF the effort. [place] lifts, holds or supports trunk or limbs, but provides less than half the effort. 2-Substantial/Maximal Assistance-helper does MORE THAN HALF the effort. [place] lifts or holds trunk or limbs and provides more than half the effort. 1-Yhbjifnpq-zrddga does ALL the effort. Patient does none of the effort to complete the activity. Or, the assistance of 2 or more helpers is required for the patient to complete the activity. If activity was not attempted, code reason: 7-Patient Refused. 9-Not Applicable-not attempted and the patient did not perform the activity before the current illness, exacerbation or injury. 10-Not Attempted due to Environmental Limitations-(lack of equipment, weather restraints, etc.). 88-Not Attempted due to Medical Conditions or Safety Concerns. Eating (QC): 6 Shower/Bathe Self (QC): 7 (Pt denies, states he would like his daughter to complete. Pt educated that daughter is able to complete but would like a staff member present in stance for safety, pt nods.) on/ off footwear: 4- pt educated on dressing stick/ sock aide use, completes doffing sock with IND and donning sock with sock aide with increased time and intermittent assist. Pt educated on where to purchase items. Other Treatment Pt completes AE training for footwear. Pt states L shoulder in pain while L UE stabilizing theraband exercises. Pt completes UE theraband exercises to R UE (shoulder internal rotation, shoulder ad/ abduction, and triceps) with theraband tied to bed on R side of pt to compensate LUE pain. Pt completes 1 set of 10 exercises with cues and modifications for tension. Pt educated on LUE movements to complete throughout the day to decrease risk of frozen shoulder; pt's daughter comes in end of session, pt's L shoulder uncovered and pt's daughter questions reasoning of LUE movement. Pt's daughter educated on decreasing the risks of frozen shoulder and completing AROM throughout day. Pt's daughter nods, pt left in recliner chair, all needs met, call light in reach. Education OT Patient Education: Correct positioning, Exercise program, Home exercise program, Instructions to caregiver, Modified ADL techniques, Purpose of tx/functional activities, Safety issues, Use of adapted equipment Teaching Recipient: Patient, Family Teaching Methods: Demonstration, Discussion Response to Teaching: Verbalize Understanding, Return Demonstration OT Bottle Inspector Goals Bottle Inspector Goals Time Frame: Oct 02, 2019 Eating (QC): 6 Oral Hygiene (QC): 6 Toileting Hygiene (QC): 4 Shower/Bathe Self (QC): 3 Upper Body Dressing (QC): 4 Lower Body Dressing (QC): 4 On/Off Footwear (QC): 2 (met) Additional Goals: 1-Demonstrate ADL Tasks, 2-Verbalize Understanding, 3- ImproveStrength/Kaylyn 1=Demonstrate adherence to instructed precautions during ADL tasks. 2=Patient will verbalize/demonstrate understanding of assistive devices/modifications for ADL. 3=Patient will improve strength/tolerance for activity to enable patient to perform ADL's. OT Education/Plan Problem List/Assessment Assessment: Decreased Activ Tolerance, Decreased UE Strength, Impaired I ADL's, Impaired Self-Care Skills, Restricted Funct UE ROM Discharge Recommendations Plan/Recommendations: Continue POC Equpiment Recommendations-D/C: Sock Aide, Dressing Stick Treatment Plan/Plan of Care Treatment,Training & Education: Yes Patient would benefit from OT for education, treatment and training to promote independence in ADL's, mobility, safety and/or upper extremity function for ADL's. Plan of Care: ADL Retraining, Caregiver Training, Concurrent Therapy, F unctional Mobility, UE Funct Exercise/Act Treatment Duration: Oct 02, 2019 Frequency: 5 times per week Estimated Hrs Per Day: .25 hour per day Agreement: Yes Rehab Potential: Fair Time/GCodes Start Time: 12:50 Stop Time: 13:14 Total Time Billed (hr/min): 24 Billed Treatment Time 1, ADL 2 (24) ALONSO IQBAL OTR Sep 26, 2019 14:00 POS
[2019-09-26] MEDS ORDERED: HEParin 1000 UNIT/ML (10ML VIAL) FOR BOLUS IV ONE (15:45)
--- NOTE | 2019-09-26 16:13 | NUR ---
Patient has got up to chair with each meal this shift and has tolerated it well, patient was advanced to a restricted fat diet and has been tolerating eating his meals well. Patient given a bed bath this shift. Patient sitting up in bed at this time awake, alert and oriented, he appears to be more cheerful. Oxygen has been titrated down and patient is now on a nasal canula at 3L, his respirations are even and unlabored, VSS, and he is relaxing comfortably. Call light is in reach, bed in low position with wheels locked. Four of patients daughters have been here to visit patient off and on this shift. Will continue to monitor.
[2019-09-26] MEDS: HEParin 1000 UNIT/ML (10ML VIAL) FOR BOLUS IV SCH (23:45)
[2019-09-27] VITALS (23 sets, daily range): BP systolic 83–124; BP diastolic 51–86
[2019-09-27] MEDS: HEParin DRIP 25000 UNIT/500ML 500 ML IV SCH (02:17)
[2019-09-27] MEDS: RT-ALBUTEROL/IPRATROPIUM 3 ML (DUONEB) VIAL INH SCH ×6 (02:43→21:44)
[2019-09-27] MEDS: LACTATED RINGERS 1,000 ML IV SCH ×2 (02:51→18:27)
--- NOTE | 2019-09-27 02:52 | NUR ---
RT decreased O2 from 4 l oxymask to 3 l oxymask; RN had changed patient over to regular nc but he kept desatting so she swithced him over to an oxymask at 4 L (regular nc is still in patients nares but he was sleeping so RT did not remove it at this time)
[2019-09-27 03:56] LABS: BASOPHILS # (AUTO) 0.1 10^3/uL (0.0-0.1); BASOPHILS % (AUTO) 1 % (0-10); EOSINOPHILS # (AUTO) 0.3 10^3/uL (0.0-0.3); EOSINOPHILS % (AUTO) 3 % (0-10); HEMATOCRIT 45 % (40-54); HEMOGLOBIN 15.1 G/DL (13.3-17.7); LYMPHOCYTES # (AUTO) 4.3 X 10^3 (1.0-4.0); LYMPHOCYTES % (AUTO) 44 % (12-44); MEAN CORPUSCULAR HEMOGLOBIN 33 PG (25-34); MEAN CORPUSCULAR HGB CONC 34 G/DL (32-36); MEAN CORPUSCULAR VOLUME 99 FL (80-99); MEAN PLATELET VOLUME 12.7 FL (7.4-10.4); MONOCYTES # (AUTO) 0.7 X 10^3 (0.0-1.0); MONOCYTES % (AUTO) 8 % (0-12); NEUTROPHILS # (AUTO) 4.4 X 10^3 (1.8-7.8); NEUTROPHILS % (AUTO) 45 % (42-75); PLATELET COUNT 70 10^3/uL (130-400); RED CELL DISTRIBUTION WIDTH 14.7 % (10.0-14.5); WHITE BLOOD COUNT 9.8 10^3/uL (4.3-11.0)
[2019-09-27 04:09] LABS: INR 1.2 (0.8-1.4); PROTHROMBIN TIME PATIENT 15.7 SEC (12.2-14.7)
[2019-09-27 04:13] LABS: BUN/CREATININE RATIO 20; CALCIUM 7.3 MG/DL (8.5-10.1); CARBON DIOXIDE 26 MMOL/L (21-32); CHLORIDE 103 MMOL/L (98-107); CREATININE SERUM 0.69 MG/DL (0.60-1.30); GFR ESTIMATED > 60; GLUCOSE 103 MG/DL (70-105); MAGNESIUM 1.7 MG/DL (1.6-2.4); PHOSPHORUS 2.1 MG/DL (2.3-4.7); POTASSIUM 3.7 MMOL/L (3.6-5.0); SODIUM 138 MMOL/L (135-145)
[2019-09-27] MEDS: POTASSIUM CL 10MEQ/50ML IVPB 50 ML IV SCH (04:17)
[2019-09-27] MEDS: KCL 20 MEQ TAB (K-DUR) PO SCH (04:18)
[2019-09-27] MEDS: inSUlin ASPART (NovoLOG) 1 UNIT/0.01 ML (CHARGE PER UNIT) SC SCH ×4 (04:18→20:00)
[2019-09-27] MEDS: MAGNESIUM 1 GM/100 ML IVPB 100 ML IV SCH ×3 (04:18→06:22)
[2019-09-27] MEDS ORDERED: POTASSIUM PHOSPHATE INJ 30 MM in NS (IVPB) 250 ML IV ONE (05:00)
--- NOTE | 2019-09-27 05:03 | Pulmonary Progress Note ---
Subjective Time Seen by a Provider: 05:05 Subjective/Events-last exam Planning on bronchoscopy today. Sepsis Event Evaluation Height, Weight, BMI Height: '" Weight: lbs. oz. kg; 25.38 BMI Method: Focused Exam Lactate Level 09/25/19 06:58: Lactic Acid Level 1.56 Exam Exam Vital Signs Date Time Temp Pulse Resp B/P (MAP) Pulse Ox O2 Delivery O2 Flow Rate FiO2 09/27/19 04:00 94 OxyMask 4.00 09/27/19 04:00 100 14 99/63 (75) 100 OxyMask 3.00 09/27/19 03:00 97 22 109/66 (80) 96 OxyMask 3.00 09/27/19 02:52 OxyMask 3.00 09/27/19 02:43 99 OxyMask 4.00 09/27/19 02:00 101 17 95/63 (74) 90 OxyMask 4.00 09/27/19 01:00 99 17 108/63 (78) 90 OxyMask 4.00 09/27/19 01:00 100 09/27/19 00:58 OxyMask 4.00 09/27/19 00:05 104 16 94 40.00 09/27/19 00:05 NIV Bilevel 40.00 09/27/19 00:00 103 18 108/65 (79) 89 Vapotherm 15.00 21.00 09/27/19 00:00 97 OxyMask 4.00 09/27/19 00:00 36.4 09/26/19 23:56 104 16 94 40.00 09/26/19 23:00 102 14 102/59 (73) 94 Vapotherm 15.00 21.00 09/26/19 22:52 Vapotherm 15.00 21.00 09/26/19 22:39 98 Vapotherm 15.00 21 09/26/19 22:31 Nasal Cannula 4.00 09/26/19 20:00 100 Room Air 09/26/19 20:00 36.4 09/26/19 20:00 105 15 110/64 (79) 99 Room Air 09/26/19 19:00 96 09/26/19 18:54 100 Room Air 09/26/19 18:00 36.5 09/26/19 16:42 Room Air 09/26/19 16:00 93 20 114/90 (98) Nasal Cannula 4.00 09/26/19 16:00 36.1 09/26/19 16:00 96 Nasal Cannula 3.00 09/26/19 15:19 Nasal Cannula 6.00 09/26/19 15:00 93 20 Nasal Cannula 10.00 09/26/19 14:57 92 Nasal Cannula 6.00 09/26/19 14:00 96 21 114/90 (98) 100 Nasal Cannula 10.00 09/26/19 13:00 99 21 134/69 (90) 96 Vapotherm 10.00 21.00 09/26/19 12:58 Vapotherm 10.00 21.00 09/26/19 12:45 98 09/26/19 12:00 86 16 85/52 (63) 100 Vapotherm 20.00 30.00 09/26/19 12:00 99 Vapotherm 10.00 21 09/26/19 11:24 100 Vapotherm 15.00 21 09/26/19 11:00 85 14 100 Vapotherm 20.00 30.00 09/26/19 10:42 Vapotherm 20.00 30.00 09/26/19 10:00 86 16 100 Vapotherm 30.00 30.00 09/26/19 09:00 86 15 104/57 (73) 100 Vapotherm 40.00 50.00 09/26/19 08:00 93 35 Vapotherm 40.00 50.00 09/26/19 08:00 36.8 09/26/19 08:00 99 Vapotherm 40.00 40 09/26/19 07:00 87 21 124/69 (87) 100 Vapotherm 40.00 50.00 09/26/19 07:00 85 09/26/19 06:00 87 12 97/51 (66) 100 Vapotherm 40.00 50.00 09/26/19 05:00 82 13 100/60 (73) 100 Vapotherm 40.00 50.00 I & O 09/27/19 07:00 Intake Total 2833 ml Output Total 770 ml Balance 2063 ml Height & Weight Height: '" Weight: lbs. oz. kg; 25.38 BMI Method: General Appearance: No Apparent Distress, Chronically ill Respiratory: No Accessory Muscle Use, Decreased Breath Sounds Cardiovascular: Regular Rate, Rhythm, No Murmur Capillary Refill: Less Than 3 Seconds Gastrointestinal: normal bowel sounds, non tender, soft Extremity: No Calf Tenderness, No Pedal Edema Neurologic/Psychiatric: Alert, Oriented x3, Normal Mood/Affect Skin: Normal Color, Warm/Dry Results Lab Laboratory Tests 09/26/19 03:08 09/27/19 03:45 Assessment/Plan Assessment/Plan Acute respiratory failure secondary to right pleural effusion -Emergent thoracentesis performed 09/24/19 -Fluid analysis LDH 354 and triglycerides 113, suspected chylothorax -Repeat chest Xray and CT -Bipap 70% O2 titrated down to Vapotherm, tolerating -Duoneb Q4RT and Q2PRN -Furosemide 20mg 09/24/19 -Echo show LVEF 55-65% with diastolic dysfunction -Will probably need repeat thoracentesis Acute PE - full hep gtt. - holding for bronchoscopy -Will do at 11 today -Monitor coag studies -LE Doppler without evidence of DVT Hypotension -Monitor close Thrombocytopenia -Monitor right lung opacification secondary to large right pleural effusion -dominant mass in right central lung extending into hilum and mediastinum with associated upper abdominal adenopathy. Imaging suggestive of lymphoma Hx of mantle cell lymphoma -Dr. Rhodes following -port placed 08/21/19 -Has had one round of chemo with Treanda and ALLEN Montgomery DO Sep 27, 2019 05:03 POS
[2019-09-27] MEDS: CEFEPIME INJECTION 1,000 MG in WATER (STERILE) FOR INJECTION 10 ML IV SCH ×3 (05:12→18:27)
--- NOTE | 2019-09-27 07:56 | Diagnostic Imaging Report ---
Portable chest is compared to prior study from 09/26/2019. INDICATION: Right pleural effusion. Shortness of breath. FINDINGS: Patient's right-sided effusion has significantly increased compared to the prior examination with progressive right basilar consolidation. Abnormal interstitial opacities within the right lung apex may reflect infiltrate or compressive atelectasis. The left lung remains clear. Heart size stable. Left port positioning is unchanged. There is no pneumothorax. IMPRESSION: Significant progression in right-sided pleural effusion and basilar consolidation with increased prominence of apical interstitial markings that may reflect infiltrates or compressive atelectasis. Dictated by: Dictated on workstation # [id number]
[2019-09-27] MEDS: PANTOPRAZOLE 40 MG (PROTONIX) VIAL IV SCH (08:29)
[2019-09-27] MEDS: GABAPENTIN 600 MG (NEURONTIN) TAB PO SCH ×2 (09:00→20:00)
--- NOTE | 2019-09-27 09:21 | Progress Note - Hospitalist ---
Subjective HPI/CC On Admission Date Seen by Provider: Sep 27, 2019 Time Seen by Provider: 09:18 Patient is a 73-year-old male with past medical history of mantle cell lymphoma who presented to the emergency department due to shortness of breath. He was scheduled to receive his second round of chemotherapy today but due to shortness of breath and overall malaise he was referred to the emergency department. He is quite sedated after receiving Ativan for CT scan and is unable to provide much history. Per report from the ER he was found to be thrombocytopenic with platelets of 89 and had a large right-sided pleural e ffusion. He is to being admitted to the ICU for thoracentesis. Subjective/Events-last exam Pt reports feeling well. No complaints. Oxygen requirement down significantly from yesterday. Plan for Bronch today. heparin gtt on hold. Focused Exam Lactate Level 09/25/19 06:58: Lactic Acid Level 1.56 Objective Exam Vital Signs Vital Signs Date Time Temp Pulse Resp B/P (MAP) Pulse Ox O2 Delivery O2 Flow Rate FiO2 09/27/19 08:00 36.0 91 13 95/66 (76) 100 Nasal Cannula 4.00 09/26/19 22:39 21 Capillary Refill : Less Than 3 Seconds General Appearance: No Apparent Distress, Chronically ill Respiratory: No Accessory Muscle Use, No Respiratory Distress, Decreased Breath Sounds Cardiovascular: Regular Rate, Rhythm, No Murmur Gastrointestinal: Normal Bowel Sounds, Non Tender, Soft Neurologic/Psychiatric: Alert, Oriented x3 Results/Procedures Lab Laboratory Tests 09/27/19 03:45 Patient resulted labs reviewed. Imaging: Reviewed Imaging Films, Reviewed Imaging Report Assessment/Plan Assessment and Plan Assess & Plan/Chief Complaint Right Pleural Effusion- chylothorax Acute Pulmonary Emboli Mantle Cell Lymphoma Acute Hypoxic Respiratory Failure Pulm consulted, appreciate recs low fat diet ordered S/p thoracentesis- on day of admission Continue Cefepime andVanc On Vapotherm Hold Heparin gtt for procedure plan for bronch today Review CXR images and opacification worse today than yesterday, may need repeat thoracentesis Thrombocytopenia- chronic Trend- stable liver disease?- notable hepatomegaly on CT Heme/Onc consulted HTN BP well controlled, continue to hold home meds NIDDMII SSI Hold metformin due to contrast DVT ppx: Heparin gtt on hold Diagnosis/Problems Diagnosis/Problems (1) Pulmonary emboli Status: Acute Qualifiers: Pulmonary embolism type: other Chronicity: acute Acute cor pulmonale presence: without acute cor pulmonale Qualified Codes: I26.99 - Other pulm onary embolism without acute cor pulmonale (2) MANTEL CELL CANCER Status: Chronic (3) Malignant pleural effusion Status: Acute (4) Right nasopharyngeal mass Clinical Quality Measures DVT/VTE Risk/Contraindication: Risk Factor Score Per Nursin RFS Level Per Nursing on Admit: 4+=Very High Contraindications-Pharm: Other *list below* Other: PT ON HEPARIN GTT FOR PE SHA ORTIZ MD Sep 27, 2019 09:21 POS
[2019-09-27] MEDS ORDERED: fentaNYL INJECTION 100 MCG/2 ML AMP ONE (11:27)
[2019-09-27] MEDS ORDERED: MIDAZOLAM 2 MG/2 ML (VERSED) VIAL ONE (11:27)
--- NOTE | 2019-09-27 11:33 | Oncology Progress Note ---
Subjective Time Seen by a Provider: 11:25 Subjective/Events-last exam Cover for Dr Gray. Pt is feeling slightly better but still high flow oxygen face mask. Dr Acosta will do bronchoscope today. Data Review Labs Laboratory Tests 09/27/19 03:45 Laboratory Tests 09/24/19 13:00: Mean Corpuscular Volume 101H, Red Cell Distribution Width 15.2H, Platelet Count 89L, Mean Platelet Volume 12.7H, Prothrombin Time 14.8H, Glucose Level 126H, Uric Acid 7.3H, Calcium Level 8.0L, Magnesium Level 1.5L, Alkaline Phosphatase 205H, Total Protein 5.1L, Albumin 3.1L 09/24/19 13:45: Urine Specific [place] 1.025H, Urine Protein 3+H, Urine Bilirubin 1+H, Urine Mucus SMALLH 09/24/19 16:53: Mean Corpuscular Volume 101H, Red Cell Distribution Width 15.0H, Platelet Count 72L, Mean Platelet Volume 12.3H, Prothrombin Time 15.7H 09/24/19 17:00: 09/24/19 17:20: Arterial Blood pH 7.33*L, Arterial Blood Partial Pressure CO2 61H, Arterial Blood Partial Pressure O2 71L, Arterial Blood HCO3 31H, Arterial Blood Total CO2 33.0H, Arterial Blood Oxygen Saturation 93L, Arterial Blood Base Excess 5.5H 09/24/19 20:15: Arterial Blood Partial Pressure CO2 46H, Arterial Blood Partial Pressure O2 59L, Arterial Blood HCO3 29H, Arterial Blood Oxygen Saturation 91L, Arterial Blood Base Excess 4.9H 09/24/19 21:19: Activated Partial Thromboplast Time 111H 09/25/19 03:00: Activated Partial Thromboplast Time 90H, White Blood Count 16.9H, Mean Corpuscular Volume 101H, Red Cell Distribution Width 15.0H, Platelet Count 78L, Mean Platelet Volume 13.0H, Neutrophils # (Auto) 10.5H, Lymphocytes # (Auto) 5.0H, Monocytes # (Auto) 1.1H, Blood Urea Nitrogen 19H, Calcium Level 7.7L, Magnesium Level 1.4L 09/25/19 03:05: Arterial Blood Partial Pressure CO2 48H, Arterial Blood Partial Pressure O2 64L, Arterial Blood HCO3 29H, Arterial Blood Oxygen Saturation 92L, Arterial Blood Base Excess 4.1H 09/25/19 06:58: Vancomycin Level Trough < 0.4L 09/25/19 10:25: Activated Partial Thromboplast Time 192*H 09/25/19 11:47: 09/25/19 17:40: Activated Partial Thromboplast Time 90H 09/26/19 00:18: Activated Partial Thromboplast Time 117*H 09/26/19 01:43: Glucometer 114H 09/26/19 03:08: Activated Partial Thromboplast Time 188*H, Mean Corpuscular Volume 100H, Red Cell Distribution Width 15.1H, Platelet Count 72L, Mean Platelet Volume 12.8H, Calcium Level 7.4L 09/26/19 03:16: Arterial Blood Partial Pressure O2 69L, Arterial Blood HCO3 30H, Arterial Blood Total CO2 31.3H, Arterial Blood Base Excess 5.6H 09/26/19 13:41: Activated Partial Thromboplast Time 63H 09/26/19 16:00: Glucometer 135H 09/26/19 20:09: Glucometer 140H 09/26/19 23:00: Activated Partial Thromboplast Time 53H 09/27/19 03:45: Activated Partial Thromboplast Time 106H, Red Cell Distribution Width 14.7H, Platelet Count 70L, Mean Platelet Volume 12.7H, Lymphocytes # (Auto) 4.3H, Prothrombin Time 15.7H, Calcium Level 7.3L, Phosphorus Level 2.1L Laboratory Tests 09/27/19 03:45 Physical Exam Vital Signs Vital Signs - First Documented 09/24/19 09/24/19 12:00 20:00 Temp 36.4 Pulse 94 Resp 23 B/P (MAP) 109/82 (91) Pulse Ox 93 O2 Delivery Nasal Cannula O2 Flow Rate 5.00 FiO2 60 Capillary Refill : Less Than 3 Seconds Height, Weight, BMI Height: '" Weight: lbs. oz. kg; 25.38 BMI Method: General Appearance: Anxious, Other (on face mask O2 ) HEENT: PERRL/EOMI Neck: Non Tender, Supple Respiratory: Decreased Breath Sounds, Respiratory Distress Cardiovascular: Regular Rate, Rhythm Gastrointestinal: Soft, Distended Extremity: Non Tender, Pedal Edema Neurologic/Psychiatric: Alert, Oriented x3 Focused Exam Lactate Level 09/25/19 06:58: Lactic Acid Level 1.56 Impression & Plan Impression & Plan IMPRESSION: A 73-year-old male admitted to the hospital with SOB requires high flow oxygen: 1. Large right pleural effusion, status post diagnostic and therapeutic right thoracentesis 2. Left pulmonary embolism on anticoagulation with heparin. 3. Recent diagnosis of mantle cell lymphoma with bulky disease in the chest and abdomen, Status post chemotherapy with Treanda and Rituxan x1. Minimal response. Dr Gray is thinking of transfer to [facility] for Hyper-CVAC. 4. Abdominal as well as lower extremity edema. 5. Thrombocytopenia Plt 70k due to chemo and acute illness. Plan: 1. Awaiting for bronchoscope, both therapeutic and diagnostic. 2. Continue Heparin gtt for now. Monitor CBC daily. Once the patient is stable, may switch to newer oral anticoagulants. 3. Hold off chemotherapy and discuss with Dr Gray on Sunday for the future treatment options. Clinical Quality Measures DVT/VTE Risk/Contraindication: Risk Factor Score Per Nursin RFS Level Per Nursing on Admit: 4+=Very High Contraindications-Pharm: Other *list below* Other: PT ON HEPARIN GTT FOR PE LINDA GARCIA MD Sep 27, 2019 11:33 POS
--- NOTE | 2019-09-27 11:48 | Physical Therapy Progress Note ---
Therapy Progress Note Pt.'s family outside of room upon initial arrival, states patient is sleeping and requests not to disturb him. On second attempt, patient up in bedside chair with family present. Family states he has a procedure at 11am, no therapy needed at this time. We will check patient status 09/29/19. 0815, 1010 AMADOR RODRIGUEZ PT Sep 27, 2019 11:48 POS
--- NOTE | 2019-09-27 12:16 | Pulmonary Procedures ---
Pulmonary Procedures Date of Procedure Date of Service: Sep 27, 2019 Bronch Bronchoscopy with bilateral washes and, right mainstem cytology brushes. Preop DX Lymphoma, atelectasis Postop DX: same Right mainstem is very inflamed and with raised erythematous lesions (Pics taken and placed in chart ) Complications: none After informed consent obtained and formal time out pt was sedated using Fentanyl and Versed. Bronchoscope was advanced through the nare and vocal cords. 1% lidocaine was used to anesthetize vocal cords, epiglottis, luis, and left/right main stem bronchus. Bronchoscopy with bilateral washes and, right mainstem cytology brushes. were obtained. Right mainstem is very inflamed and with raised erythematous lesions. Pt tolerated procedure well. No complications noted. Stat CXR is pending. ALLEN GREGORY DO Sep 27, 2019 12:16 POS
--- NOTE | 2019-09-27 12:20 | NUR ---
BRONCHOSCOPY DONE BY DR GREGORY. THIS RN AND RT IN ROOM. 75MCG FENTANLY GIVEN AND 4MG OF VERSED GIVEN PER DR GREGORY ORDERS. PT PLACED ON BIPAP AFTER PROCEDURE WITH FIO2 OF 80%. VITAL SIGNS STABLE, WILL CONTINUE TO MONITOR.
[2019-09-27] MEDS ORDERED: LIDOCAINE PF 1% 2 ML VIAL IJ ONE (13:00)
[2019-09-27] MEDS ORDERED: LIDOCAINE JELLY 2% 6 ML SYRINGE TOP ONE (13:00)
[2019-09-27] MEDS ORDERED: LIDOCAINE PF 2% 5 ML (XYLOCAINE) VIAL INJ ONE (13:00)
[2019-09-28] VITALS (18 sets, daily range): BP systolic 81–124; BP diastolic 47–70
[2019-09-28] MEDS: CEFEPIME INJECTION 1,000 MG in WATER (STERILE) FOR INJECTION 10 ML IV SCH ×4 (00:34→18:44)
[2019-09-28] MEDS: RT-ALBUTEROL/IPRATROPIUM 3 ML (DUONEB) VIAL INH SCH ×6 (01:47→23:30)
[2019-09-28 03:12] LABS: BASOPHILS # (AUTO) 0.1 10^3/uL (0.0-0.1); BASOPHILS % (AUTO) 1 % (0-10); EOSINOPHILS # (AUTO) 0.2 10^3/uL (0.0-0.3); EOSINOPHILS % (AUTO) 2 % (0-10); HEMATOCRIT 42 % (40-54); HEMOGLOBIN 14.7 G/DL (13.3-17.7); LYMPHOCYTES # (AUTO) 4.1 X 10^3 (1.0-4.0); LYMPHOCYTES % (AUTO) 43 % (12-44); MEAN CORPUSCULAR HEMOGLOBIN 34 PG (25-34); MEAN CORPUSCULAR HGB CONC 35 G/DL (32-36); MEAN CORPUSCULAR VOLUME 98 FL (80-99); MEAN PLATELET VOLUME 12.4 FL (7.4-10.4); MONOCYTES # (AUTO) 0.9 X 10^3 (0.0-1.0); MONOCYTES % (AUTO) 9 % (0-12); NEUTROPHILS # (AUTO) 4.1 X 10^3 (1.8-7.8); NEUTROPHILS % (AUTO) 44 % (42-75); PLATELET COUNT 68 10^3/uL (130-400); WHITE BLOOD COUNT 9.4 10^3/uL (4.3-11.0)
[2019-09-28 03:25] LABS: INR 1.2 (0.8-1.4); PROTHROMBIN TIME PATIENT 15.6 SEC (12.2-14.7)
[2019-09-28 03:33] LABS: BUN/CREATININE RATIO 16; CALCIUM 7.2 MG/DL (8.5-10.1); CARBON DIOXIDE 25 MMOL/L (21-32); CHLORIDE 106 MMOL/L (98-107); CREATININE SERUM 0.73 MG/DL (0.60-1.30); GFR ESTIMATED > 60; GLUCOSE 109 MG/DL (70-105); MAGNESIUM 1.7 MG/DL (1.6-2.4); PHOSPHORUS 2.9 MG/DL (2.3-4.7); SODIUM 141 MMOL/L (135-145)
[2019-09-28] MEDS: inSUlin ASPART (NovoLOG) 1 UNIT/0.01 ML (CHARGE PER UNIT) SC SCH ×4 (04:23→21:08)
[2019-09-28] MEDS: MAGNESIUM 1 GM/100 ML IVPB 100 ML IV SCH ×3 (04:23→08:00)
[2019-09-28] MEDS: POTASSIUM CL 10MEQ/50ML IVPB 50 ML IV SCH ×5 (04:23→10:12)
[2019-09-28] MEDS: KCL 20 MEQ TAB (K-DUR) PO SCH (04:23)
--- NOTE | 2019-09-28 05:59 | Pulmonary Progress Note ---
Subjective Time Seen by a Provider: 06:01 Subjective/Events-last exam Pt is currently on Vapotherm. Sepsis Event Evaluation Height, Weight, BMI Height: '" Weight: lbs. oz. kg; 25.38 BMI Method: Focused Exam Lactate Level 09/25/19 06:58: Lactic Acid Level 1.56 Exam Exam Vital Signs Date Time Temp Pulse Resp B/P (MAP) Pulse Ox O2 Delivery O2 Flow Rate FiO2 09/28/19 05:00 92 17 103/70 (81) 94 Vapotherm 30.00 60.00 09/28/19 04:00 90 14 100/60 (73) 94 Vapotherm 30.00 60.00 09/28/19 03:00 93 20 97/54 (68) 92 Vapotherm 30.00 60.00 09/28/19 02:00 92 16 99/55 (70) 92 Vapotherm 30.00 60.00 09/28/19 01:47 92 Vapotherm 30.00 60 09/28/19 01:00 92 09/28/19 01:00 90 14 102/54 (70) 93 Vapotherm 30.00 60.00 09/28/19 00:00 94 Vapotherm 30.00 60 09/28/19 00:00 36.2 92 15 93/56 (68) 93 Vapotherm 30.00 60.00 09/27/19 23:00 95 16 112/78 (89) 95 Vapotherm 30.00 60.00 09/27/19 22:00 89 14 94/52 (66) 90 Vapotherm 30.00 60.00 09/27/19 21:44 95 Vapotherm 30.00 60 09/27/19 21:00 87 18 97/52 (67) 95 Vapotherm 30.00 60.00 09/27/19 20:00 89 25 116/57 (76) 93 Vapotherm 30.00 60.00 09/27/19 20:00 93 Vapotherm 30.00 60 09/27/19 20:00 36.4 09/27/19 19:00 90 09/27/19 19:00 89 14 99/56 (70) 91 Vapotherm 30.00 60.00 09/27/19 18:30 NIV Bilevel 30.00 60.00 09/27/19 18:23 92 Vapotherm 30.00 60 11/23/19 18:00 92 22 107/60 (76) 96 09/27/19 17:00 96 23 83/62 (69) 99 Nasal Cannula 2.00 09/27/19 16:13 Nasal Cannula 2.00 09/27/19 16:00 36.6 09/27/19 16:00 Nasal Cannula 2.00 09/27/19 16:00 92 21 99/51 (67) 100 Vapotherm 20.00 50.00 09/27/19 15:00 97 18 94 Vapotherm 30.00 50.00 09/27/19 14:14 100 Vapotherm 30.00 50 09/27/19 14:00 92 21 103/64 (77) 100 Vapotherm 30.00 50.00 09/27/19 13:00 96 14 109/67 (81) 95 NIV Bilevel 80.00 09/27/19 13:00 96 09/27/19 12:23 NIV Bilevel 80.00 09/27/19 12:00 100 Nasal Cannula 09/27/19 12:00 36.9 09/27/19 12:00 101 28 110/86 (94) 94 Nasal Cannula 4.00 09/27/19 11:00 92 19 109/70 (83) Nasal Cannula 4.00 09/27/19 10:00 92 16 Nasal Cannula 4.00 09/27/19 09:19 100 Nasal Cannula 3.00 09/27/19 09:00 92 12 104/73 (83) 100 Nasal Cannula 4.00 09/27/19 08:00 100 Nasal Cannula 09/27/19 08:00 36.0 91 13 95/66 (76) 100 Nasal Cannula 4.00 09/27/19 07:00 97 09/27/19 07:00 95 16 124/69 (87) 100 Nasal Cannula 4.00 09/27/19 06:18 95 Nasal Cannula 3.00 09/27/19 06:00 96 17 113/65 (81) 98 OxyMask 3.00 I & O 09/28/19 06:59 Intake Total 1470 ml Output Total 950 ml Balance 520 ml Height & Weight Height: '" Weight: lbs. oz. kg; 25.38 BMI Method: General Appearance: Anxious, Moderate Distress HEENT: PERRL/EOMI Neck: Non Tender, Supple Respiratory: Decreased Breath Sounds, Respiratory Distress Cardiovascular: Regular Rate, Rhythm Capillary Refill: Less Than 3 Seconds Gastrointestinal: normal bowel sounds, non tender, soft Extremity: Non Tender, Pedal Edema Neurologic/Psychiatric: Alert, Oriented x3 Skin: Normal Color, Warm/Dry Results Lab Laboratory Tests 09/27/19 03:45 09/28/19 03:00 Assessment/Plan Assessment/Plan Acute respiratory failure secondary to right pleural effusion -Emergent thoracentesis performed 09/24/19 -Fluid analysis LDH 354 and triglycerides 113, suspected chylothorax -Repeat chest Xray and CT -Pleural fluid is reaccumulating probably secondary to already dx lymphoma. Will consult surgery for Pleurx cath. -Pt is currently on Hep gtt for PE -Family is not currently at bedside. -Bipap 70% O2 titrated down to Vapotherm, tolerating -Duoneb Q4RT and Q2PRN -Furosemide 20mg 09/24/19 -Echo show LVEF 55-65% with diastolic dysfunction Thrombocytopenia -Oncology following Acute PE - full hep gtt. -Monitor coag studies -LE Doppler without evidence of DVT Hypotension -Monitor close Thrombocytopenia -Monitor right lung opacification secondary to large right pleural effusion -dominant mass in right central lung extending into hilum and mediastinum with associated upper abdominal adenopathy. Imaging suggestive of lymphoma Hx of mantle cell lymphoma -Dr. Rhodes following -port placed 08/21/19 -Has had one round of chemo with Treanda and Rituxan Pt's overall prognosis is guarded to poor. ALLEN GREGORY DO Sep 28, 2019 05:59 POS
[2019-09-28] MEDS ORDERED: FUROSEMIDE 40 MG/4 ML INJ (LASIX) IVP ONE (06:00)
[2019-09-28 06:40] LABS: ABG BASE EXCESS 3.5 MMOL/L (-2.5-2.5); ABG OXYGEN SATURATION 95 % (94-100); ABG PCO2 49 MMHG (35-45); ABG PH 7.38 (7.37-7.43); ABG PO2 72 MMHG (79-93); ABG TCO2 29.9 MMOL/L (21.0-31.0)
[2019-09-28 06:41] LABS: ALLENS TEST positive
[2019-09-28 06:42] LABS: INSPIRED O2 VAPO @ 30L/60%; PATIENT TEMP 36.4; VENTILATOR NO
[2019-09-28] MEDS: LACTATED RINGERS 1,000 ML IV SCH (08:30)
[2019-09-28] MEDS: GABAPENTIN 600 MG (NEURONTIN) TAB PO SCH ×2 (08:30→20:20)
[2019-09-28] MEDS: PANTOPRAZOLE 40 MG (PROTONIX) VIAL IV SCH (08:30)
[2019-09-28] MEDS ORDERED: ALPRAZolam 0.25 MG (XANAX) TAB PO PRN (09:30)
--- NOTE | 2019-09-28 09:33 | Progress Note - Hospitalist ---
Subjective HPI/CC On Admission Date Seen by Provider: Sep 28, 2019 Time Seen by Provider: 09:28 Patient is a 73-year-old male with past medical history of mantle cell lymphoma who presented to the emergency department due to shortness of breath. He was scheduled to receive his second round of chemotherapy today but due to shortness of breath and overall malaise he was referred to the emergency department. He is quite sedated after receiving Ativan for CT scan and is unable to provide much history. Per report from the ER he was found to be thrombocytopenic with platelets of 89 and had a large right-sided pleural e ffusion. He is to being admitted to the ICU for thoracentesis. Subjective/Events-last exam Pt reports no more shortness of breath. Reviewed CXR with patient and family and explained plan for Surgery evaluation for pleur-x catheter. Patient would like pleur-x and would like to talk to Dr Gray about other chemo options but would ideally like to go home with [facility] if no meaningful hope of recovery with quality. Would very much like to be home for Thanksgiving and states he does not want to in a hospital. Objective Exam Vital Signs Vital Signs Date Time Temp Pulse Resp B/P (MAP) Pulse Ox O2 Delivery O2 Flow Rate FiO2 09/28/19 08:00 36.6 95 20 106/58 (74) 92 Vapotherm 30.00 60.00 09/28/19 08:00 60 Capillary Refill : Less Than 3 Seconds General Appearance: No Apparent Distress, Anxious, Chronically ill Respiratory: No Accessory Muscle Use, Decreased Breath Sounds, Other (on Vapotherm) Cardiovascular: Regular Rate, Rhythm, No Murmur Gastrointestinal: Normal Bowel Sounds, Non Tender, Soft Neurologic/Psychiatric: Alert, Oriented x3 Results/Procedures Lab Laboratory Tests 09/28/19 03:00 Patient resulted labs reviewed. Imaging: Reviewed Imaging Films, Reviewed Imaging Report Assessment/Plan Assessment and Plan Assess & Plan/Chief Complaint Right Pleural Effusion- chylothorax Acute Pulmonary Emboli Mantle Cell Lymphoma Acute Hypoxic Respiratory Failure Pulm consulted, appreciate recs low fat diet ordered S/p thoracentesis on day of admission with reaccumulation of fluid today, s/p bronch yesterday Surgeyr consulted for eval for Pleur-X catheter Continue Cefepime, DC Vanc On Vapotherm- wean as able Heparin Gtt for PE Review CXR images and opacification similar to day of admission Thrombocytopenia- chronic Trend- stable liver disease?- notable hepatomegaly on CT Heme/Onc consulted HTN BP well controlled, continue to hold home meds NIDDMII SSI Hold metformin due to contrast End of Life Counseling Patient requests to be home for Thanksgiving and is interest in Hospice after discussion with Dr Gray Palliative Care Consulted DVT ppx: Heparin gtt on hold Diagnosis/Problems Diagnosis/Problems (1) Pulmonary emboli Status: Acute Qualifiers: Pulmonary embolism type: other Chronicity: acute Acute cor pulmonale presence: without acute cor pulmonale Qualified Codes: I26.99 - Other pulmonary embolism without acute cor pulmonale (2) MANTEL CELL CANCER Status: Chronic (3) Malignant pleural effusion Status: Acute (4) Right nasopharyngeal mass Clinical Quality Measures DVT/VTE Risk/Contraindication: Risk Factor Score Per Nursin RFS Level Per Nursing on Admit: 4+=Very High Contraindications-Pharm: Other *list below* Other: PT ON HEPARIN GTT FOR PE SHA ORTIZ MD Sep 28, 2019 09:33 POS
--- NOTE | 2019-09-28 10:38 | Oncology Progress Note ---
Subjective Time Seen by a Provider: 10:37 Subjective/Events-last exam Pt stated that he is feeling better and is on nasal canular O2. He had bronchoscope done yesterday. CXR showed worse infiltration/pleural effusion Pt agreed to pleur-X catheter tomorrow by Dr Gipson and wants to go home after the procedure for Thanksgiving. He wants to at home with hospice if he gets to that point. Data Review Labs Laboratory Tests 09/28/19 03:00 Laboratory Tests 09/25/19 11:47: 09/25/19 17:40: Activated Partial Thromboplast Time 90H 09/26/19 00:18: Activated Partial Thromboplast Time 117*H 09/26/19 01:43: Glucometer 114H 09/26/19 03:08: Mean Corpuscular Volume 100H, Red Cell Distribution Width 15.1H, Platelet Count 72L, Mean Platelet Volume 12.8H, Activated Partial Thromboplast Time 188*H, Calcium Level 7.4L 09/26/19 03:16: Arterial Blood Partial Pressure O2 69L, Arterial Blood HCO3 30H, Arterial Blood Total CO2 31.3H, Arterial Blood Base Excess 5.6H 09/26/19 13:41: Activated Partial Thromboplast Time 63H 09/26/19 16:00: Glucometer 135H 09/26/19 20:09: Glucometer 140H 09/26/19 23:00: Activated Partial Thromboplast Time 53H 09/27/19 03:45: Activated Partial Thromboplast Time 106H, Red Cell Distribution Width 14.7H, Platelet Count 70L, Mean Platelet Volume 12.7H, Lymphocytes # (Auto) 4.3H, Prothrombin Time 15.7H, Calcium Level 7.3L, Phosphorus Level 2.1L 09/27/19 11:29: Glucometer 121H 09/27/19 15:30: Glucometer 135H 09/27/19 18:20: Activated Partial Thromboplast Time 88H 09/27/19 19:43: Glucometer 112H 09/28/19 00:10: Activated Partial Thromboplast Time 137*H 09/28/19 03:00: Red Blood Count 4.28L, Red Cell Distribution Width 15.0H, Platelet Count 68L, Mean Platelet Volume 12.4H, Lymphocytes # (Auto) 4.1H, Prothrombin Time 15.6H, Glucose Level 109H, Calcium Level 7.2L 09/28/19 06:30: Arterial Blood Partial Pressure CO2 49H, Arterial Blood Partial Pressure O2 72L, Arterial Blood HCO3 28H, Arterial Blood Base Excess 3.5H 09/28/19 07:05: Activated Partial Thromboplast Time 93H Physical Exam Vital Signs Vital Signs - First Documented 09/24/19 09/24/19 12:00 20:00 Temp 36.4 Pulse 94 Resp 23 B/P (MAP) 109/82 (91) Pulse Ox 93 O2 Delivery Nasal Cannula O2 Flow Rate 5.00 FiO2 60 Capillary Refill : Less Than 3 Seconds Height, Weight, BMI Height: '" Weight: lbs. oz. kg; 25.38 BMI Method: General Appearance: No Apparent Distress HEENT: PERRL/EOMI Respiratory: No Accessory Muscle Use, No Respiratory Distress, Decreased Breath Sounds Cardiovascular: Regular Rate, Rhythm Gastrointestinal: Non Tender, Soft Neurologic/Psychiatric: Alert, Oriented x3 Impression & Plan Impression & Plan IMPRESSION: A 73-year-old male admitted to the hospital with SOB requires high flow oxygen: 1. Large right pleural effusion, status post diagnostic and therapeutic right thoracentesis 2. Left pulmonary embolism on anticoagulation with heparin. 3. Recent diagnosis of mantle cell lymphoma with bulky disease in the chest and abdomen, Status post chemotherapy with Treanda and Rituxan x1. Minimal response. Dr Gray is thinking of transfer to [facility] for Hyper-CVAC. 4. Abdominal as well as lower extremity edema. 5. Thrombocytopenia Plt 70k due to chemo and acute illness. Plan: 1. Pleur-X catheter tomorrow by Dr. Gipson 2. Continue Heparin gtt until the procedure done and then consider oral Eliquis or Xarelto if going home for Thanksgiving . 3. Hold off chemotherapy and discuss with Dr Gray on Sunday for the future treatment options. Clinical Quality Measures DVT/VTE Risk/Contraindication: Risk Factor Score Per Nursin RFS Level Per Nursing on Admit: 4+=Very High Contraindications-Pharm: Other *list below* Other: PT ON HEPARIN GTT FOR PE LINDA GARCIA MD Sep 28, 2019 10:38 POS
--- NOTE | 2019-09-28 10:50 | Diagnostic Imaging Report ---
INDICATION: Pleural effusion, shortness of breath COMPARISON: 09/27/2019 FINDINGS: Single view of the chest demonstrates now complete opacification of the right hemithorax. The left lung is clear. The heart is prominent but stable. There is no pneumothorax. IMPRESSION: Now complete opacification of the right hemithorax. Dictated by: Dictated on workstation # [id number]
--- NOTE | 2019-09-28 11:25 | Progress Note-Pre Operative ---
Pre-Operative Progress Note H&P Reviewed The H&P was reviewed, patient examined and no changes noted. Date Seen by Provider: Sep 28, 2019 Time Seen by Provider: 11:20 Date H&P Reviewed: Sep 28, 2019 Time H&P Reviewed: 11:20 Pre-Operative Diagnosis: hx stage 4 mantle cell lymphoma with recurrent sx right pl effusion CANDIDO VELAZQUEZ MD Sep 28, 2019 11:25 POS
--- NOTE | 2019-09-28 11:50 | CONSULTATION REPORT ---
DATE OF SERVICE: 09/28/2019 ATTENDING PRIMARY CARE PHYSICIAN: Dr. Juan Eddy. HISTORY OF PRESENT ILLNESS: The patient is a 73-year-old male who developed right ear pain as well as hearing loss and was seen by ENT where an endoscopic evaluation did show a nasopharyngeal mass, which was biopsied and consistent with mantle cell lymphoma. Further imaging did show bulky mediastinal and hilar lymphadenopathy as well as abdominal lymphadenopathy and splenomegaly. Biopsies were consistent with a low-grade mantle cell lymphoma and was started on chemotherapy with bendamustine and rituximab 4 weeks ago. During his treatments, he did develop leukocytosis and lymphocytosis. He was then reevaluated and was found short of breath and also did have bilateral lower extremity edema. He was found to have a right pleural effusion as well as further imaging did show a left pulmonary embolism along the superior lingular lobe. He has undergone thoracentesis; however, he has had rapid recurrence of right-sided pleural effusion, which is symptomatic with shortness of breath. PAST MEDICAL HISTORY: Mantle cell lymphoma diagnosed late July, hypertension, diabetes, nephrolithiasis. PAST SURGICAL HISTORY: Cholecystectomy in 1991, bilateral rotator cuff surgery in 2001 and 2004, lumbar diskectomy in 1983, laminectomy in 2013, bilateral bone spur from feet in 1991, bilateral tympanostomy and nasopharyngeal mass biopsy in 07/2019. ALLERGIES: PENICILLIN. MEDICATIONS: Acyclovir 400 mg daily, albuterol p.r.n., alprazolam 0.25 mg p.r.n., glimepiride 4 mg daily, losartan 25 mg daily, metoprolol 50 mg daily, morphine 15 mg b.i.d., oxycodone 5 mg q.4 hours p.r.n., Protonix 40 mg daily, pravastatin 40 mg daily, Carafate 1 gram p.r.n. SOCIAL HISTORY: Positive smoke 60 pack years. Minimal alcohol. FAMILY HISTORY: Brother with testicular cancer. Sister, breast cancer. Another sister, gastric cancer. Another sister with bladder cancer. VITAL SIGNS: Temperature 36.6, blood pressure 124/70, pulse 93, respirations 22, pulse ox 95% on 30% of Vapotherm. REVIEW OF SYSTEMS: He is a well-nourished male, who is currently sitting up. However, he is not short of breath upon sitting; however, does develop shortness of breath upon minimal ambulation. Minimal cough or sputum production. No hemoptysis. No chest pain, palpitations, diaphoresis. No nausea, vomiting. No diarrhea, constipation. No red blood per rectum. No dark tarry stools. No fever, chills. No recent inadvertent weight loss. All other review of systems negative. PHYSICAL EXAMINATION: CHEST: Decreased breath sounds throughout the right lung field, scattered rales left lung field. HEART: Regular, no murmurs. EXTREMITIES: +1/3 bilateral lower extremity edema, negative Homans sign. HEENT: No scleral icterus. NECK: No cervical lymphadenopathy. ABDOMEN: Soft, nontender, nondistended. SKIN: Warm, dry. ASSESSMENT AND PLAN: A 73-year-old male with stage IV mantle cell lymphoma with recurrent symptomatic right pleural effusion. He also has a left lung pulmonary embolism. This gentleman is stable for now. However, followup x-rays do show a significant recurrence of pleural effusion on the right side. A discussion was made with the patient and the family, and they would like to proceed with hospice care; however, before proceeding with this, he will need a tunneled pleural catheter that may be accessed at home and drained when he becomes symptomatic. He is also on anticoagulation currently with heparin drip and we will hold this 90 minutes before the procedure. Job ID: [id number] DocumentID: [id number] Dictated Date: 09/28/2019 11:21:19 Precise Winder Date: 09/28/2019 11:50:09 Dictated By: CANDIDO VELAZQUEZ MD
[2019-09-28] MEDS: HEParin DRIP 25000 UNIT/500ML 500 ML IV SCH (15:18)
[2019-09-28] MEDS ORDERED: ALPRAZolam 0.25 MG (XANAX) TAB ONE (19:17)
[2019-09-28] MEDS: ALPRAZolam 0.25 MG (XANAX) TAB PO PRN (19:20)
[2019-09-28] MEDS: RT-ALBUTEROL/IPRATROPIUM 3 ML (DUONEB) VIAL INH PRN (20:18)
[2019-09-29] VITALS (19 sets, daily range): BP systolic 90–114; BP diastolic 44–71
[2019-09-29] MEDS: CEFEPIME INJECTION 1,000 MG in WATER (STERILE) FOR INJECTION 10 ML IV SCH ×3 (00:09→14:11)
[2019-09-29] MEDS: ALPRAZolam 0.25 MG (XANAX) TAB PO PRN (00:51)
[2019-09-29] MEDS: RT-ALBUTEROL/IPRATROPIUM 3 ML (DUONEB) VIAL INH SCH ×5 (02:52→18:40)
[2019-09-29 03:41] LABS: BASOPHILS # (AUTO) 0.1 10^3/uL (0.0-0.1); BASOPHILS % (AUTO) 1 % (0-10); EOSINOPHILS # (AUTO) 0.3 10^3/uL (0.0-0.3); EOSINOPHILS % (AUTO) 3 % (0-10); HEMATOCRIT 44 % (40-54); HEMOGLOBIN 14.9 G/DL (13.3-17.7); LYMPHOCYTES % (AUTO) 46 % (12-44); MEAN CORPUSCULAR HEMOGLOBIN 34 PG (25-34); MEAN CORPUSCULAR HGB CONC 34 G/DL (32-36); MEAN CORPUSCULAR VOLUME 100 FL (80-99); MONOCYTES # (AUTO) 0.8 X 10^3 (0.0-1.0); MONOCYTES % (AUTO) 9 % (0-12); NEUTROPHILS # (AUTO) 3.5 X 10^3 (1.8-7.8); NEUTROPHILS % (AUTO) 41 % (42-75); PLATELET COUNT 74 10^3/uL (130-400); RED CELL DISTRIBUTION WIDTH 14.7 % (10.0-14.5); WHITE BLOOD COUNT 8.6 10^3/uL (4.3-11.0)
[2019-09-29 03:55] LABS: INR 1.2 (0.8-1.4); PROTHROMBIN TIME PATIENT 15.3 SEC (12.2-14.7)
[2019-09-29 04:02] LABS: BUN/CREATININE RATIO 16; CALCIUM 7.2 MG/DL (8.5-10.1); CARBON DIOXIDE 26 MMOL/L (21-32); CHLORIDE 105 MMOL/L (98-107); CREATININE SERUM 0.73 MG/DL (0.60-1.30); GFR ESTIMATED > 60; GLUCOSE 133 MG/DL (70-105); MAGNESIUM 1.8 MG/DL (1.6-2.4); POTASSIUM 4.1 MMOL/L (3.6-5.0); SODIUM 139 MMOL/L (135-145)
--- NOTE | 2019-09-29 04:21 | Pulmonary Progress Note ---
Subjective Time Seen by a Provider: 06:40 Subjective/Events-last exam Pt is scheduled for pleurex catheter today. Sepsis Event Evaluation Height, Weight, BMI Height: '" Weight: lbs. oz. kg; 25.38 BMI Method: Exam Exam Vital Signs Date Time Temp Pulse Resp B/P (MAP) Pulse Ox O2 Delivery O2 Flow Rate FiO2 09/29/19 04:00 36.5 09/29/19 04:00 Vapotherm 30.00 60 09/29/19 02:52 91 Vapotherm 10.00 50 09/29/19 01:00 96 09/29/19 01:00 95 20 90 Vapotherm 20.00 50.00 09/29/19 00:00 36.6 09/29/19 00:00 93 18 91 Vapotherm 20.00 50.00 09/29/19 00:00 Vapotherm 30.00 60 09/28/19 23:30 94 Vapotherm 20.00 50 09/28/19 23:00 95 16 92 Vapotherm 20.00 50.00 09/28/19 22:00 99 22 95 Vapotherm 20.00 50.00 09/28/19 21:00 92 20 96 Vapotherm 20.00 50.00 09/28/19 20:25 Vapotherm 20.00 50.00 09/28/19 20:18 94 Vapotherm 30.00 60 09/28/19 20:00 Vapotherm 30.00 60 09/28/19 20:00 97 21 95 Vapotherm 30.00 60.00 09/28/19 20:00 36.4 09/28/19 19:00 100 09/28/19 19:00 98 17 106/59 (75) 95 Vapotherm 30.00 60.00 09/28/19 18:00 102 22 91 Vapotherm 30.00 60.00 09/28/19 17:00 101 24 94/70 (78) 91 Vapotherm 30.00 60.00 09/28/19 16:00 Vapotherm 30.00 60 09/28/19 16:00 36.5 09/28/19 16:00 93 15 106/58 (74) 93 Vapotherm 30.00 60.00 09/28/19 15:14 94 Vapotherm 30.00 60 09/28/19 15:00 89 19 113/65 (81) 93 Vapotherm 30.00 60.00 09/28/19 14:00 84 13 105/63 (77) 94 Vapotherm 30.00 60.00 09/28/19 13:00 91 09/28/19 13:00 90 14 105/62 (76) 94 Vapotherm 30.00 60.00 09/28/19 12:00 36.8 09/28/19 12:00 Vapotherm 30.00 60 09/28/19 12:00 93 25 112/68 (83) 95 Vapotherm 30.00 60.00 09/28/19 11:00 99 27 81/47 (58) 96 Vapotherm 30.00 60.00 09/28/19 10:27 95 Vapotherm 30.00 60 09/28/19 10:00 124/70 (88) 09/28/19 10:00 93 22 95 Vapotherm 30.00 60.00 09/28/19 09:00 93 7 93 Vapotherm 30.00 60.00 09/28/19 08:00 36.6 95 20 106/58 (74) 92 Vapotherm 30.00 60.00 09/28/19 08:00 Vapotherm 30.00 60 09/28/19 07:00 100 09/28/19 07:00 93 20 104/60 (75) 91 Vapotherm 30.00 60.00 09/28/19 06:45 93 Vapotherm 30.00 60 09/28/19 06:00 88 12 123/68 (86) 94 Vapotherm 30.00 60.00 09/28/19 05:00 92 17 103/70 (81) 94 Vapotherm 30.00 60.00 I & O 09/29/19 07:00 Intake Total 3050 ml Output Total 2450 ml Balance 600 ml Height & Weight Height: '" Weight: lbs. oz. kg; 25.38 BMI Method: General Appearance: Chronically ill, Mild Distress HEENT: PERRL/EOMI Neck: Non Tender, Supple Respiratory: No Accessory Muscle Use, No Respiratory Distress, Decreased Breath Sounds Cardiovascular: Regular Rate, Rhythm Capillary Refill: Less Than 3 Seconds Gastrointestinal: normal bowel sounds, non tender, soft Extremity: Non Tender, Pedal Edema Neurologic/Psychiatric: Alert, Oriented x3 Skin: Normal Color, Warm/Dry Results Lab Laboratory Tests 09/28/19 03:00 09/29/19 03:20 Assessment/Plan Assessment/Plan Acute respiratory failure secondary to right pleural effusion -Emergent thoracentesis performed 09/24/19 -Fluid analysis LDH 354 and triglycerides 113, suspected chylothorax -Repeat chest Xray and CT -Pleural fluid is reaccumulating probably secondary to already dx lymphoma. Will consult surgery for Pleurx cath. -Pt is currently on Hep gtt for PE -Family at bedside sleeping in recliners. -Bipap 70% O2 titrated down to Vapotherm, tolerating -Duoneb Q4RT and Q2PRN -Furosemide 20mg 09/24/19 -Echo show LVEF 55-65% with diastolic dysfunction Thrombocytopenia -Oncology following Acute PE - full hep gtt. -Monitor coag studies -LE Doppler without evidence of DVT Hypotension -Monitor close Thrombocytopenia -Monitor right lung opacification secondary to large right pleural effusion -dominant mass in right central lung extending into hilum and mediastinum with associated upper abdominal adenopathy. Hx of mantle cell lymphoma -Dr. Rhodes following -port placed 08/21/19 -Has had one round of chemo with Treanda and Rituxan Pt's overall prognosis is guarded to poor. possible home with hospice today. ALLEN GREGORY DO Sep 29, 2019 04:21 POS
[2019-09-29] MEDS: POTASSIUM CL 10MEQ/50ML IVPB 50 ML IV SCH (04:35)
[2019-09-29] MEDS: MAGNESIUM 1 GM/100 ML IVPB 100 ML IV SCH (04:36)
[2019-09-29] MEDS: KCL 20 MEQ TAB (K-DUR) PO SCH (04:36)
[2019-09-29] MEDS: inSUlin ASPART (NovoLOG) 1 UNIT/0.01 ML (CHARGE PER UNIT) SC SCH ×3 (04:37→16:26)
[2019-09-29] MEDS: morphine INJ 10 MG/ML 1ML (SYR OR VIAL) IVP PRN (06:43)
--- NOTE | 2019-09-29 07:47 | Diagnostic Imaging Report ---
CHEST 1 VIEW, AP/PA ONLY INDICATION: Dyspnea. COMPARISON: 09/28/2019. FINDINGS: Stable left subclavian Port-A-Cath. Slightly improved aeration within the right hemithorax which remains near completely opacified. Left hemithorax is grossly unchanged. Grossly stable cardiomediastinal silhouette. IMPRESSION: 1. Slightly improved aeration in the right hemithorax with persistent near-complete opacification. No adverse development. Dictated by: Dictated on workstation # [id number]
[2019-09-29] MEDS: PANTOPRAZOLE 40 MG (PROTONIX) VIAL IV SCH (07:57)
[2019-09-29] MEDS: GABAPENTIN 600 MG (NEURONTIN) TAB PO SCH (07:57)
[2019-09-29] MEDS ORDERED: APIX5TAB PO (09:37)
--- NOTE | 2019-09-29 10:14 | Physical Therapy Progress Note ---
Therapy Progress Note Per RN, patient to have procedure then dismiss to home on hospice with family PT to dismiss patient from services at this time. CHRIS GONZALES PT Sep 29, 2019 10:14 POS
--- NOTE | 2019-09-29 11:20 | NUR ---
Pt is Religious. Supervising Editor [employer] provided prayer and Communion.
--- NOTE | 2019-09-29 13:36 | NUR ---
Pt wanting discharged home today. Pt's daughters Juliann and Diane agree with pt's request to be discharged home with hospice services Pt's less then a year ago and had [facility] hospice and they are again requesting their services and requesting the same RN they had for their mother. At their request faxed pt's records to hospice for their review.
--- NOTE | 2019-09-29 13:36 | Occupational Ther Daily Note ---
OT Current Status-Daily Note Subjective Pt seen in bed, ~5 family members present through session. Pt supine, states moderate pain in L shoulder. Pt agreeable to OT tx session. ADL-Treatment Therapy Code Descriptions/Definitions Functional Stevens Measure: 0=Not Assessed/NA 4=Minimal Assistance 1=Total Assistance 5=Supervision or Setup 2=Maximal Assistance 6=Modified Stevens 3=Moderate Assistance 7=Complete IndependenceSCALE: Activities may be completed with or without assistive devices. 6-Dhtrolsylt-wjbhykg completes the activity by him/herself with no assistance from a helper. 5-Set-up or Clean-up Assistance-helper sets up or cleans up; patient completes activity. [place] assists only prior to or following the activity. 4-Supervision or Touching Assistance-helper provides verbal cues and/or touching/steadying and/or contact guard assistance as patient completes activity. Assistance may be provided throughout the activity or intermittently. 3-Partial/Moderate Assistance-helper does LESS THAN HALF the effort. [place] lifts, holds or supports trunk or limbs, but provides less than half the effort. 2-Substantial/Maximal Assistance-helper does MORE THAN HALF the effort. [place] lifts or holds trunk or limbs and provides more than half the effort. 5-Ywcbqcefm-csndhu does ALL the effort. Patient does none of the effort to complete the activity. Or, the assistance of 2 or more helpers is required for the patient to complete the activity. If activity was not attempted, code reason: 7-Patient Refused. 9-Not Applicable-not attempted and the patient did not perform the activity before the current illness, exacerbation or injury. 10-Not Attempted due to Environmental Limitations-(lack of equipment, weather restraints, etc.). 88-Not Attempted due to Medical Conditions or Safety Concerns. Other Treatment Pt seen in bed, pt states moderate pain in L shoulder. Pt's daughter states she has been utilizing theraband for LUE movements; pt and family members educated o n R UE use for theraband and of AROM rather than AAROM for LUE and to move within tolerable range. Pt's daughter states confusion on theraband placement on L side of bed, notified that theraband was in use when in recliner chair next to bed and theraband moved to R side of bed. Pt and family members educated on supporting UE during movements and process of synovial fluid lubrication of joint during movements and decreasing chance of frozen shoulder through AROM; pt completes AROM of L shoulder internal/ external rotation, UE supported while pt forward flexes and completes scaption movements (pt educated to punch toward ceiling in neutral and ~30* abduction to complete these movements). Family members' questions answered. Pt completes AROM with and without theraband on R side, states some pain in the morning after laying on R side. Pt completes AROM in all planes, no crepitus noted. Pt left in bed with family members, all needs met, call light in reach. Education OT Patient Education: Correct positioning, Exercise program, Instructions to caregiver, Safety issues Teaching Recipient: Patient, Family Teaching Methods: Demonstration, Discussion Response to Teaching: Verbalize Understanding, Return Demonstration OT Nursing Home Goals Nursing Home Goals Time Frame: Oct 02, 2019 Eating (QC): 6 Oral Hygiene (QC): 6 Toileting Hygiene (QC): 4 Shower/Bathe Self (QC): 3 Upper Body Dressing (QC): 4 Lower Body Dressing (QC): 4 On/Off Footwear (QC): 2 (met) Additional Goals: 1-Demonstrate ADL Tasks, 2-Verbalize Understanding, 3- ImproveStrength/Kaylyn 1=Demonstrate adherence to instructed precautions during ADL tasks. 2=Patient will verbalize/demonstrate understanding of assistive devices/modifications for ADL. 3=Patient will improve strength/tolerance for activity to enable patient to perform ADL's. OT Education/Plan Problem List/Assessment Assessment: Decreased Activ Tolerance, Decreased UE Strength, Impaired Bed Mobility, Impaired Funct Balance, Impaired I ADL's, Impaired Self-Care Skills, Restricted Funct UE ROM Discharge Recommendations Plan/Recommendations: Continue POC Therapy Discharge Recommendati: 24 Hour Supervision Equpiment Recommendations-D/C: Sock Aide, Dressing Stick Treatment Plan/Plan of Care Treatment,Training & Education: Yes Patient would benefit from OT for education, treatment and training to promote independence in ADL's, mobility, safety and/or upper extremity function for ADL's. Plan of Care: ADL Retraining, Caregiver Training, Concurrent Therapy, Functional Mobility, UE Funct Exercise/Act Treatment Duration: Oct 02, 2019 Frequency: 5 times per week Estimated Hrs Per Day: .25 hour per day Agreement: Yes Rehab Potential: Fair Time/GCodes Start Time: 13:30 Stop Time: 13:45 Total Time Billed (hr/min): 15 Billed Treatment Time 1, EX (15)= 15 ALONSO IQBAL OTR Sep 29, 2019 13:36 POS
[2019-09-29] MEDS ORDERED: MIDAZOLAM 2 MG/2 ML (VERSED) VIAL ONE (13:38)
[2019-09-29] MEDS ORDERED: fentaNYL INJECTION 100 MCG/2 ML AMP ONE (13:38)
[2019-09-29] MEDS ORDERED: PROPOFOL INJECTION 50 ML IV ONE (13:38)
[2019-09-29] MEDS: LACTATED RINGERS 1,000 ML IV SCH (13:54)
[2019-09-29] MEDS ORDERED: LACTATED RINGERS 1,000 ML IV PRN (14:35)
--- NOTE | 2019-09-29 14:41 | NUR ---
PT LEAVING UNIT VIA BED ACCOMPANIED BY SURGERY STAFF. PT FAMILY LEAVING UNIT WITH PT. WILL WAIT FOR PT TO RETURN TO UNIT.
--- NOTE | 2019-09-29 14:58 | Progress Note ---
Subjective Date Seen by a Provider: Sep 29, 2019 Time Seen by a Provider: 14:30 Subjective/Events-last exam doing ok. no change in resp status. Objective Exam Vital Signs Date Time Temp Pulse Resp B/P (MAP) Pulse Ox O2 Delivery O2 Flow Rate FiO2 09/29/19 13:00 95 09/29/19 12:00 Vapotherm 10.00 50 09/29/19 12:00 100 99/69 (79) 93 Vapotherm 20.00 50.00 09/29/19 11:40 37.3 09/29/19 11:17 93 Vapotherm 10.00 50 09/29/19 11:00 98 21 100/44 (62) 93 Vapotherm 20.00 50.00 09/29/19 10:00 104 15 112/60 (77) 91 Vapotherm 20.00 50.00 09/29/19 09:00 96 26 105/69 (81) 92 Vapotherm 20.00 50.00 09/29/19 08:00 95 20 95/58 (70) 91 Vapotherm 20.00 50.00 09/29/19 08:00 Vapotherm 10.00 50 09/29/19 07:56 36.0 Vapotherm 10.00 50.00 09/29/19 07:13 90 Vapotherm 10.00 50 09/29/19 07:00 97 09/29/19 07:00 96 33 107/63 (78) 90 Vapotherm 20.00 50.00 09/29/19 06:00 96 14 91/54 (66) 91 Vapotherm 20.00 50.00 09/29/19 05:00 96 22 90/56 (67) 91 Vapotherm 20.00 50.00 09/29/19 04:00 36.5 09/29/19 04:00 Vapotherm 30.00 60 09/29/19 04:00 93 18 106/59 (75) 91 Vapotherm 20.00 50.00 09/29/19 03:00 94 15 112/65 (81) 93 Vapotherm 20.00 50.00 09/29/19 02:52 91 Vapotherm 10.00 50 09/29/19 02:00 93 18 104/60 (75) 90 Vapotherm 20.00 50.00 09/29/19 01:00 96 09/29/19 01:00 95 20 90 Vapotherm 20.00 50.00 09/29/19 00:00 36.6 09/29/19 00:00 93 18 91 Vapotherm 20.00 50.00 09/29/19 00:00 Vapotherm 30.00 60 09/28/19 23:30 94 Vapotherm 20.00 50 09/28/19 23:00 95 16 92 Vapotherm 20.00 50.00 09/28/19 22:00 99 22 95 Vapotherm 20.00 50.00 09/28/19 21:00 92 20 96 Vapotherm 20.00 50.00 09/28/19 20:25 Vapotherm 20.00 50.00 09/28/19 20:18 94 Vapotherm 30.00 60 09/28/19 20:00 Vapotherm 30.00 60 09/28/19 20:00 97 21 95 Vapotherm 30.00 60.00 09/28/19 20:00 36.4 09/28/19 19:00 100 09/28/19 19:00 98 17 106/59 (75) 95 Vapotherm 30.00 60.00 09/28/19 18:00 102 22 91 Vapotherm 30.00 60.00 09/28/19 17:00 101 24 94/70 (78) 91 Vapotherm 30.00 60.00 09/28/19 16:00 Vapotherm 30.00 60 09/28/19 16:00 36.5 09/28/19 16:00 93 15 106/58 (74) 93 Vapotherm 30.00 60.00 09/28/19 15:14 94 Vapotherm 30.00 60 09/28/19 15:00 89 19 113/65 (81) 93 Vapotherm 30.00 60.00 I & O 09/29/19 07:00 Intake Total 3050 ml Output Total 2610 ml Balance 440 ml Capillary Refill : Less Than 3 Seconds General Appearance: No Apparent Distress HEENT: PERRL/EOMI Neck: Full Range of Motion Respiratory: Decreased Breath Sounds, Rhonci Cardiovascular: Regular Rate, Rhythm Gastrointestinal: normal bowel sounds, non tender, soft Extremity: Normal Capillary Refill Neurologic/Psychiatric: Alert, Oriented x3 Skin: Normal Color Lymphatic: No Adenopathy Results Lab Laboratory Tests 11/24/19 16:10: Glucometer 123H 09/28/19 21:24: Glucometer 134H 09/29/19 03:20: White Blood Count 8.6, Red Blood Count 4.41, Hemoglobin 14.9, Hematocrit 44, Mean Corpuscular Volume 100H, Mean Corpuscular Hemoglobin 34, Mean Corpuscular Hemoglobin Concent 34, Red Cell Distribution Width 14.7H, Platelet Count 74L, Mean Platelet Volume 13.0H, Neutrophils (%) (Auto) 41L, Lymphocytes (%) (Auto) 46H, Monocytes (%) (Auto) 9, Eosinophils (%) (Auto) 3, Basophils (%) (Auto) 1, Neutrophils # (Auto) 3.5, Lymphocytes # (Auto) 4.0, Monocytes # (Auto) 0.8, Eosinophils # (Auto) 0.3, Basophils # (Auto) 0.1, Prothrombin Time 15.3H, INR Comment 1.2, Activated Partial Thromboplast Time 101H, Sodium Level 139, Potassium Level 4.1, Chloride Level 105, Carbon Dioxide Level 26, Anion Gap 8, Blood Urea Nitrogen 12, Creatinine 0.73, Estimat Glomerular Filtration Rate > 60, BUN/Creatinine Ratio 16, Glucose Level 133H, Calcium Level 7.2L, Phosphorus Level 2.0L, Magnesium Level 1.8 09/29/19 11:38: Glucometer 127H Microbiology 09/24/19 Gram Stain - Final, Complete 09/24/19 Body Fluid Culture - Final, Complete No growth 09/27/19 Gram Stain - Final, Resulted 09/27/19 Bronchial Culture - Final, Resulted Usual oral smitha 09/27/19 Fungal Culture 1, Resulted Pending Assessment/Plan Assessment/Plan Assess & Plan/Chief Complaint stage 4 mantle cell lymphoma with sx recurrent right pleural effusion. tunneled cath today. Clinical Quality Measures DVT/VTE Risk/Contraindication: Risk Factor Score Per Nursin RFS Level Per Nursing on Admit: 4+=Very High Contraindications-Pharm: Other *list below* Other: PT ON HEPARIN GTT FOR PE CANDIDO VELAZQUEZ MD Sep 29, 2019 14:58 POS
[2019-09-29] MEDS ORDERED: ceFAZolin INJECTION 1,000 MG ONE (14:59)
[2019-09-29] MEDS ORDERED: ceFAZolin INJECTION 1,000 MG VIAL IV NR (15:00)
[2019-09-29] MEDS ORDERED: LIDOCAINE/EPI 1%-1:100,000 (XYLOCAINE) 20ML ONE (15:17)
--- NOTE | 2019-09-29 16:05 | Discharge Summary ---
Discharge Summary Hospital Course Was the Problem List Reviewed?: Yes Problems/Dx: (1) Pulmonary emboli Status: Acute Qualifiers: Qualified Codes: I26.99 - Other pulmonary embolism without acute cor pulmonale (2) MANTEL CELL CANCER Status: Chronic (3) Malignant pleural effusion Status: Acute (4) Right nasopharyngeal mass Hospital Course Date of Admission: Sep 24, 2019 at 15:01 Admission Diagnosis : Right sided pleural effusion Family Physician/Provider: Juan Sutton DO Date of Discharge: 09/29/19 Discharge Diagnosis: Acute hypoxemic respiratory failure due to malignant pleural effusion Hospital Course: Allan Barber is a 73yoM with PMH mantle cell lymphoma who presented with shortness of breath and was admitted with acute hypoxemic respiratory failure due to malignant pleural effusion. He underwent thoracentesis. He was also found to have new pulmonary embolism and was started on Eliquis. He decided he wanted to have a Pleurx catheter placed and be discharged on hospice. He stated, "I just want to at home." He was set up with [facility] on discharge. Labs and Pending Lab Test: Laboratory Tests 09/28/19 16:10: Glucometer 123H 09/28/19 21:24: Glucometer 134H 09/29/19 03:20: White Blood Count 8.6, Red Blood Count 4.41, Hemoglobin 14.9, Hematocrit 44, Mean Corpuscular Volume 100H, Mean Corpuscular Hemoglobin 34, Mean Corpuscular Hemoglobin Concent 34, Red Cell Distribution Width 14.7H, Platelet Count 74L, Mean Platelet Volume 13.0H, Neutrophils (%) (Auto) 41L, Lymphocytes (%) (Auto) 46H, Monocytes (%) (Auto) 9, Eosinophils (%) (Auto) 3, Basophils (%) (Auto) 1, Neutrophils # (Auto) 3.5, Lymphocytes # (Auto) 4.0, Monocytes # (Auto) 0.8, Eosinophils # (Auto) 0.3, Basophils # (Auto) 0.1, Prothrombin Time 15.3H, INR Comment 1.2, Activated Partial Thromboplast Time 101H, Sodium Level 139, Potassium Level 4.1, Chloride Level 105, Carbon Dioxide Level 26, Anion Gap 8, Blood Urea Nitrogen 12, Creatinine 0.73, Estimat Glomerular Filtration Rate > 60, BUN/Creatinine Ratio 16, Glucose Level 133H, Calcium Level 7.2L, Phosphorus Level 2.0L, Magnesium Level 1.8 09/29/19 11:38: Glucometer 127H Microbiology 09/24/19 Gram Stain - Final, Complete 09/24/19 Body Fluid Culture - Final, Complete No growth 09/27/19 Mycobacterial Culture - Preliminary, Resulted Home Meds Active Eliquis (Apixaban) 5 Mg Tablet 5 Mg PO BID 30 Days Reported Senna (Sennosides) 8.6 Mg Tablet 8.6 Mg PO BID PRN Alprazolam 0.25 Mg Tablet 0.5 Tab PO DAILY PRN Sucralfate 1 Gm Tablet 1 Gm PO HS PRN Pravastatin Sodium 40 Mg Tablet 20 Mg PO DAILY LAST FILLED #45 FOR 90 DAY SUPPLY 05-07-19 Bisacodyl 10 Mg Supp.rect 10 Mg RC DAILY PRN Acyclovir 400 Mg Tablet 400 Mg PO BID Morphine Sulfate ER (Morphine Sulfate) 15 Mg Tablet.er 15 Mg PO Q12H Ondansetron HCl 8 Mg Tablet 8 Mg PO Q8H PRN Oxycodone HCl 5 Mg Tablet 5-10 Mg PO Q4H PRN Albuterol Sulfate 2.5 Mg/3 Ml Vial.neb 2.5 Mg NEB QID PRN Pantoprazole Sodium 40 Mg Tablet.dr 40 Mg PO DAILY Losartan Potassium 25 Mg Tablet 25 Mg PO DAILY Ventolin Hfa (Albuterol Sulfate) 18 Gm Hfa.aer.ad 1 Puff INH Q4H PRN Niacin (Niacinamide) 500 Mg Tablet 1,000 Mg PO BID Glimepiride 4 Mg Tablet 4 Mg PO DAILY LAST FILLED #60 05-16-19 Metoprolol Tartrate 50 Mg Tablet 50 Mg PO DAILY Assessment/Pt Instructions Take medications as prescribed. Your care will now be managed by [facility]. Discharge Planning: >30 minutes discharge planning Discharge Instructions Discharge Diet: No Restrictions Activity as Tolerated: Yes Discharge Physical Examination Vital Signs Vital Signs Date Time Temp Pulse Resp B/P (MAP) Pulse Ox O2 Delivery O2 Flow Rate FiO2 09/29/19 14:00 95 19 100/59 (73) 91 Vapotherm 20.00 50.00 09/29/19 12:00 50 09/29/19 11:40 37.3 General Appearance: No Apparent Distress, WD/WN, Chronically ill Respiratory: No Respiratory Distress, Decreased Breath Sounds Cardiovascular: Regular Rate, Rhythm, No Murmur Gastrointestinal: Normal Bowel Sounds, Non Tender, Soft Extremity: Non Tender, Pedal Edema Neurologic/Psychiatric: Alert, Oriented x3, No Motor/Sensory Deficits, Normal Mood/Affect Allergies: Coded Allergies: Penicillins (Verified Allergy, Severe, Anaphylaxis, 08/20/19) Discharge Summary Date of Admission Sep 24, 2019 at 15:01 Date of Discharge Discharge Date: Sep 29, 2019 Discharge Time: 16:03 Admission Diagnosis Right sided pleural effusion Consults/Procedures Consulations Surgery Procedures Thoracentesis Pleurx catheter placement Comfort Measures/ End of Life Care: Hospice Care (Home) Advance Care discuss with: patient, family member (s) Plan: identified end-of-life goals, developed treatment plan Discharge Diagnosis Acute hypoxemic respiratory failure due to malignant pleural effusion (1) Pulmonary emboli Status: Acute Qualifiers: Qualified Codes: I26.99 - Other pulmonary embolism without acute cor pulmonale (2) MANTEL CELL CANCER Status: Chronic (3) Malignant pleural effusion Status: Acute (4) Right nasopharyngeal mass Clinical Quality Measures DVT/VTE Risk/Contraindication: Risk Factor Score Per Nursin RFS Level Per Nursing on Admit: 4+=Very High Contraindications-Pharm: Other *list below* Other: PT ON HEPARIN GTT FOR PE EVANGELINA RIDER MD Sep 29, 2019 16:04 POS
--- NOTE | 2019-09-29 16:25 | Progress Note-Post Operative ---
Post-Operative Progess Note Surgeon (s)/Web Portal Developer (s) Surgeon CANDIDO VELAZQUEZ MD Web Portal Developer: none Pre-Operative Diagnosis hx stage 4 mantle cell lymphoma with recurrent sx right pl effusion Post-Operative Diagnosis same Procedure & Operative Findings Date of Procedure 09/29/19 Procedure Performed/Findings placement tunneled right pleural drain. Anesthesia Type mac Estimated Blood Loss Estimated blood loss (mL): minimal Specimens/Packing Specimens Removed none CANDIDO VELAZQUEZ MD Sep 29, 2019 16:25 POS
--- NOTE | 2019-09-29 16:30 | NUR ---
PT BACK TO ROOM VIA BED ACCOMPANIED BY [employer] RE[employer]ENT[employer]IVE. BEDSIDE REPORT RECEIVED. PT AWAKE, ALERT AND ORIENTED. PT DENIES C/O.
--- NOTE | 2019-09-29 17:43 | NUR ---
[facility] will meet pt at their home upon discharge from the hospital [facility] having all DME equipment delivered to the home.Kaya ROMERO and pt's daughter and DPOA have been in contact with each other about home care needs. Sarika ROMERO ICU assisting family and hospice in obtaining necessary scripts for home. r
--- NOTE | 2019-09-29 18:06 | Progress Note ---
Standard Progress Note Progress Notes/Assess & Plan Date Seen by a Provider: Sep 29, 2019 Time Seen by a Provider: 17:59 Progress/Assessment & Plan 73-year-old male with the recent diagnosis of mantle cell lymphoma with extensive disease in the mediastinum and abdomen as well as the hepatosplen omegaly diagnosed from biopsy of the nasopharyngeal mass. He completed the 1 cycle of chemotherapy with bendamustine and Rituxan 4 weeks ago. Admitted with extreme shortness of breath and with bilateral lower extremity edema. CT angiogram showed right lung white out as well as left sided pulmonary embolism. Status post right-sided diagnostic and therapeutic thoracentesis with removal of 3.3 L of fluid with cytology pending. Pleural fluid chemistry with high triglycerides and raising the possibility of chylous effusion. Currently on anticoagulation with heparin. Bronchoscopy on Sunday showed significant narrowing of right upper middle and lower lobe bronchioles with infiltrative appearance. Pathology report from brushings and washings pending. Most likely this is related to lymphoma and patient would benefit from more aggressive chemotherapy with hyper CVAD or high-dose methotrexate for which he will need referred to [facility]. Rapid increase in right pleural effusion with whiteout again today. Patient had a Pleurx catheter placed today and wanted to go home with hospice. I met with patient and family and informed them that if he changes his mind after the holidays to contact me and I will make arrangements for a consultation at . HALLIE TODD Sep 29, 2019 18:06 POS
[2019-09-29] MEDS ORDERED: APIXABAN 5 MG (ELIQUIS) TABLET ONE (18:33)
[2019-09-29] MEDS ORDERED: APIXABAN 5 MG (ELIQUIS) TABLET PO NR (18:45)
[2019-09-29] MEDS ORDERED: APIXABAN 5 MG (ELIQUIS) TABLET PO ONE (18:45)
--- NOTE | 2019-09-29 21:19 | OPERATIVE REPORT ---
DATE OF SERVICE: 09/29/2019 ATTENDING PRIMARY CARE PHYSICIAN: Juan Sutton DO ADMITTING PHYSICIAN: Dr. Patel. PREOPERATIVE DIAGNOSES: Stage IV mantle cell lymphoma with recurrent symptomatic right pleural effusion. POSTOPERATIVE DIAGNOSES: Stage IV mantle cell lymphoma with recurrent symptomatic right pleural effusion. PROCEDURE: Placement of tunneled right pleural catheter. SURGEON: Candido Velazquez MD. ANESTHESIA: Monitored anesthesia care with local. ESTIMATED BLOOD LOSS: Minimal. FINDINGS: Approximately 3 liters of straw yellow transudative fluid. DISPOSITION: The patient tolerated the procedure well. INDICATIONS: The patient is a 73-year-old male, who developed right ear pain as well as hearing loss and was seen by ENT where an endoscopic evaluation did show a nasopharyngeal mass, which was biopsied and consistent with mantle cell lymphoma. Further imaging did show bulky mediastinal and hilar lymphadenopathy as well as abdominal lymphadenopathy and splenomegaly. Biopsies were consistent with a low-grade mantle cell lymphoma and was started on chemotherapy with bendamustine and rituximab four weeks ago. During his treatment, he did develop leukocytosis and lymphocytosis. He was then reevaluated and found to be short of breath and did have bilateral lower extremity edema and was found to have a right pleural effusion and further imaging also did show left pulmonary embolism to the superior lingular lobe. He has undergone a thoracentesis several days ago; however, has had a rapid recurrence of right-sided pleural effusion, which is symptomatic with shortness of breath. DESCRIPTION OF PROCEDURE: The patient was brought to the operating room, laid supine on the table. After adequate IV pain and sedative medications and monitored anesthesia care, the chest and neck were prepped and draped in standard surgical fashion. A 0.5% Marcaine with epinephrine was used to anesthetize overlying skin at approximately the eighth intercostal space. We then proceeded with a second incision approximately 2 cm superior at approximately the sixth intercostal space, the mid axillary line. Approximately at the sixth intercostal space, the needle and sheath were introduced withdrawing of straw yellow transudative fluid and the guidewire was then inserted. The needle and sheath were then removed and the skin incision extended with an 11 blade and dilator and sheath were then introduced. The catheter was then tunneled using the tunneler until the cuff was in the subcutaneous tissue. The catheter was then placed through the sheath and into the pleural cavity and then the sheath removed. The skin incisions were closed using 4-0 nylon interrupted sutures. The catheter was then connected to a negative suction container and another liter was removed for a total of approximately 3 liters. The catheter was then covered with gauze followed by a large Op-Site. The patient tolerated the procedure well. We will admit him back to the ICU. The nursing staff instructed the patient and family how to access and use the PleurX catheter. Job ID: [id number] DocumentID: [id number] Dictated Date: 09/29/2019 16:32:44 [employer] Advertising Executive Date: 09/29/2019 21:19:00 Dictated By: CANDIDO VELAZQUEZ MD
--- NOTE | 2019-09-30 15:06 | Anesthesia-General Post-Op ---
MAC Patient Condition Mental Status/LOC: Same as Preop Cardiovascular: Satisfactory Nausea/Vomiting: Absent Respiratory: Satisfactory Pain: Controlled Complications: Absent Post Op Complications Complications None Follow Up Care/Instructions Patient Instructions None needed. Anesthesiology Discharge Order Discharge Order Patient was discharged to home yesterday with hospice care and was doing reasonably well, no complaints, stable vital signs, no apparent adverse anesthesia problems. CARITO JADE DO Sep 30, 2019 15:06 POS
== END 2019-09-29 19:32 | disposition hospice, home (50) | DRG 840 ==
LOC: EDUNIT# 12:00 → ER 12:01 → ICU 15:01
PROVIDERS: ADMIT Family Medicine; ATTEND Family Medicine
PROC: 0W993ZZ Drainage of Right Pleural Cavity, Percutaneous Approach (ICD-10-PCS; principal; 2019-09-24)
PROC: 0BD38ZX Extraction of Right Main Bronchus, Via Natural or Artificial Opening Endoscopic, Diagnostic (ICD-10-PCS; 2019-09-27)
PROC: 0B978ZX Drainage of Left Main Bronchus, Via Natural or Artificial Opening Endoscopic, Diagnostic (ICD-10-PCS; 2019-09-27)
PROC: 0W9930Z Drainage of Right Pleural Cavity with Drainage Device, Percutaneous Approach (ICD-10-PCS; 2019-09-29)
DX: C83.12 Mantle cell lymphoma, intrathoracic lymph nodes (principal); C83.13 Mantle cell lymphoma, intra-abdominal lymph nodes; J91.0 Malignant pleural effusion; I26.99 Other pulmonary embolism without acute cor pulmonale; J96.01 Acute respiratory failure with hypoxia; I10 Essential (primary) hypertension; F17.210 Nicotine dependence, cigarettes, uncomplicated; E11.9 Type 2 diabetes mellitus without complications; D69.6 Thrombocytopenia, unspecified; R16.2 Hepatomegaly with splenomegaly, not elsewhere classified; F41.9 Anxiety disorder, unspecified; I95.9 Hypotension, unspecified; R60.0 Localized edema; Z92.21 Personal history of antineoplastic chemotherapy; Z79.84 Long term (current) use of oral hypoglycemic drugs
CPT/HCPCS: 36415; 71045; 71250; 71275; 74177; 80048; 80053; 80202; 81000; 82805; 82945; 82962; 83605; 83615; 83735; 83880; 83986; 84100; 84157; 84478; 84550; 85007; 85025; 85027; 85610; 85730; 87015; 87070; 87081; 87101; 87116; 87205; 87206; 89051; 93306; 93970; 94640; 94660; 94760; 96374